=== PATIENT | female | born 2000 | race Caucasian/White ===

== ENCOUNTER 2023-05-18 17:59 | Outpatient (REF) | payer MEDICAID, SELFPAY ==
[2023-05-18 18:42] LABS: SARS-CoV-2 Ag NEGATIVE (NEGATIVE)
[2023-05-20 16:19] LABS: SARS-CoV-2 NAA NOT DETECTED (NOT DETECTE)
== END 2023-05-18 18:00 | disposition home or self-care (01) ==
LOC: LAB 17:59
PROVIDERS: Family Provider Obstetrics & Gynecology; PCP Family Medicine; Visit Provider Family Medicine
DX: R05.1 Acute cough (principal)
CPT/HCPCS: 87635; 87811

== ENCOUNTER 2023-07-09 15:06 | Outpatient (OUT) | payer MEDICAID, SELFPAY ==
--- OUTSIDE RECORDS SUMMARY | 2023-07-09 15:13 | XMS_ITS | CCD ---
Author Name Unknown Address [address] [place] [address] Organization [facility] Care Team Providers Care Welding Teacher Name Role Phone DALTON ., DR CONNELL Primary Care Unavailable HAY ., DR PINO Admitting Unavailable HAY ., DR PINO Attending Unavailable HAY ., DR PINO Consulting Unavailable NÉSTOR JOHNSTON Consulting Unavailable HOY ., DR CONNELL Admitting Unavailable HOY ., DR CONNELL Attending Unavailable HOY ., DR CONNELL Primary Care Unavailable DALTON ., DR CONNELL Consulting Unavailable LUIS, DR GAY Consulting Unavailable NGOC GODFREY Admitting Unavailable NGOC GODFREY Attending Unavailable DALTON ., DR CONNELL Primary Care Unavailable NGOC GODFREY Consulting Unavailable HOY ., DR CONNELL Admitting Unavailable HOY ., DR CONNELL Attending Unavailable ABDIRASHIDY ., DR CONNELL Primary Care Unavailable MD Ko Freeman Primary Care Provider [phone] MD Deidra Rees Attending Provider Deidra Rees Admitting Unavailable Deidra Rees Attending Unavailable Ko Freeman Primary Care Unavailable Allergies Allergy Classification Reported Allergen(s) Allergy Type Date of Onset Reaction(s) Facility (1 source) Amoxicillin Drug Allergy 0 [facility] (1 source) Clarithromycin Drug Allergy 4 [facility] (1 source) Phentolamine Drug Allergy 4 [facility] (1 source) Sulfamethoxazole / Trimethoprim Drug Allergy 7 [facility] (2 sources) Clarithromycin; Translations: [clarithromycin] Drug Allergy 8 [facility] (2 sources) Sulfamethoxazole; Translations: [sulfamethoxazole] Drug Allergy 8 [facility] (2 sources) Tobramycin; Translations: [tobramycin] Drug Allergy 8 [facility] (2 sources) Trimethoprim; Translations: [trimethoprim] Drug Allergy 8 [facility] Medications Current Medications Medication Drug Class(es) Dates Sig (Normalized) Sig (Original) albuterol 0.83 mg/ml inhalation solution (1 source) beta2-Adrenergic Agonist Start: 10-08-2017 Albuterol Sulfate Active October 08, 2017 12:00am budesonide 0.5 mg/ml inhalation suspension (1 source) Corticosteroid Start: 10-08-2017 Budesonide Active October 08, 2017 12:00am cetirizine hydrochloride 10 mg oral tablet (1 source) Histamine-1 Receptor Antagonist Start: 10-08-2017 Cetirizine Active TABLET October 08, 2017 12:00am diphenhydrAMINE hydrochloride 25 mg oral capsule (1 source) Histamine-1 Receptor Antagonist Start: 10-08-2017 Diphenhydramine Hcl (Benadryl) 25 mg Capsule Active October 08, 2017 12:00am ibuprofen 600 mg oral tablet (1 source) Nonsteroidal Anti-inflammatory Drug Start: 10-08-2017 take 600 mg by mouth every six hours Ibuprofen Active 600 MG PO Q6H October 08, 2017 12:00am Completed/Discontinued Medications Medication Drug Class(es) Dates Sig (Normalized) Sig (Original) acetaminophen 325 mg / HYDROcodone bitartrate 5 mg oral tablet (1 source) Opioid Agonist Start: 10-08-2017 End: 10-15-2017 take 1 tablet by mouth every four to six hours Hydrocodone-Acetami nophen ([place]) 5-325 mg tablet Discontinued 1 TAB PO EVERY 4-6 HOURS 10 01October 08, 2017 October 15, 2017 12:01am Problems Active Problems Problem Classification Problem Date Documented Date Episodic/Chronic Abdominal pain (1 source) Pelvic and perineal pain; Translations: [Pelvic and perineal pain] Onset: 09-07-2022 Episodic Attention-deficit, conduct, and disruptive behavior disorders (1 source) Attention-deficit hyperactivity disorder, unspecified type; Translations: [ADHD UNSPECIFIED TYPE] Onset: 02-27-2022 Chronic Substance-related disorders (1 source) Nicotine dependence, cigarettes, uncomplicated; Translations: [NICOTINE DEPEND CIGARETTES UNCOMP] Onset: 02-27-2022 Chronic Unclassified (4 sources) CONTACT W/AND (SUSP) EXPOS COVID-19; Translations: [CONTACT W/AND (SUSP) EXPOS COVID-19] Onset: 06-12-2022 Unclassified (3 sources) COUGH, UNSPECIFIED; Translations: [COUGH, UNSPECIFIED] Onset: 06-12-2022 Past or Other Problems Problem Classification Problem Date Documented Da te Episodic/Chronic Nonspecific chest pain (3 sources) Chest pain, unspecified; Translations: [CHEST PAIN UNSPECIFIED] Onset: 02-25-2022 Episodic Other aftercare (1 source) 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; Translations: [OTH NEWSPAPER PHOTOJOURNALIST CURRENT DRUG THERAPY] Onset: 02-27-2022 Episodic Pleurisy; pneumothorax; pulmonary collapse (1 source) Pleurisy; Translations: [PLEURISY] Onset: 02-27-2022 Episodic Unclassified (1 source) CONTACT W/AND (SUSP) EXPOS COVID-19; Translations: [CONTACT W/AND (SUSP) EXPOS COVID-19] Onset: 09-03-2022 Unclassified (1 source) COUGH, UNSPECIFIED; Translations: [COUGH, UNSPECIFIED] Onset: 06-10-2022 Results Test Name Value Interpretation Reference Range [place]il [place] Devine 09-07-2022 L - -------- Specimen: [id number] Received: 09/07/22 Status: SANJUANITA Martinez Num: [id number] Spec Type: Surgical Subm Dr: DEIDRA REES MD Tissues: A Uterus w/ or w/o tubes ovaries except neoplastic or prolap (CERVIX, MARÍA FT Procedures: HE/8, Gross/Micro L5 -------- Age/ Patient Sex Location Account Attending Physician -------- Keli Estrada 22 [place] [id number] DEIDRA REES MD -------- SPEC NUM: [id number] RECD: 09/07/22 STATUS: SANJUANITA HENRIQUEZ NUM: [id number] NESS: 09/07/22- [facility] DR: DEIDRA REES MD ENTERED: 09/07/22-[address] [facility] [address]: [facility] SPEC TYPE: Surgical DEPT: S ORDERED: HE/8, Gross/Micro L5 ORDERED: HE, Gross/Micro L5 Pathological Diagnosis Uterus, cervix, bilateral fallopian tubes, hysterectomy with bilateral salpingectomy: - Benign endometrium with proliferative pattern. - Chronic cervicitis. 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 - Serous cystadenofibroma, right fallopian tube fat pad nodule. 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 No ovaries are identified. The uterine serosa is purple pink. The exocervix is pedro-pink with a central 0.8 cm patent os. The endocervix is perdo red, glistening. The pedro- red endometrium averages 0.2 cm in thickness. The myometrium is pedro pink with a cystic appearance measuring up to 1.8 cm in thickness. The right fimbriated fallopian tube measures 6.0 x 0.6 x 0.5 cm and has attached paratubal cysts measuring up to 0.5 cm and an attached fat pad measuring up to 2.5 cm containing a 2.0 x 1.4 x 0.8 cm pedro-drake, rubbery nodule containing mucoid, yellow material on cut section. The fallopian tube is a pinpoint lumen on cut section . The left fimbriated fallopian tube measures 5.5 x 0.8 x 0.8 cm and has attached paratubal cysts measuring up to 0.7 cm. Additionally there is an attached fat pad measuring 2.2 x 1.6 x 0.9 cm. A 0.4 cm smooth-walled, clear fluid-filled cyst is -------- Specimen: [id number] Received: 09/07/22 Status: SANJUANITA Henriquez Num: [id number] Spec Type: Surgical Subm Dr: DEIDRA REES MD Tissues: A Uterus w/ or w/o tubes ovaries except neoplastic or prolap (CERVIX, MARÍA FT Procedures: HE/8, Gross/Micro L5 -------- Patient: Keli Estrada Mercedez [id number] (Continued) -------- Specimen: [id number] Received: 09/07/22 (Continued) Gross Description (Continued) Signed (signature on file) Julia Ballesteros MD 09/08/22 1316 -------- Specimen: Received: 09/07/22 Status: SANJUANITA Henriquez Num: [id number] Spec Type: Surgical Subm Dr: DEIDRA REES MD Tissues: A Uterus w/ or w/o tubes ovaries except neoplastic or prolap (CERVIX, MARÍA FT Procedures: NARESH/Manjit Washington/Micro L5 -------- Patient: NatalieKeli [id number] (Continued) -------- Specimen: [id number] Received: 09/07/22-1240 (Continued) Gross Description (Continued) identified in the attached fat pad. The fallopian tube has a pinpoint lumen on cut section. Fraternity Adviser sections are submitted in 8 cassettes as follows: A1 - Anterior cervix A2 - Posterior cervix A3 - Anterior endomyometrium A4 - Posterior endomyometrium A5 - Right fallopian tube A6 - Nodule from fat pad attached to right fallopian tube in its entirety A7 - Left fallopian tube A8 - Cyst from fat pad attached left fallopian tube in its entirety Microscopic Description Eight glass slides with H E stained material have been examined. The microscopic findings support the above pathologic diagnosis. CPT Codes 77522 -------- (more content not included)... Normal [facility] Covid-19 PCR ([facility])on 08-13 SARS-CoV-2 (COVID-19) RNA KEKE+probe Ql (Unsp spec) Not detected Normal NOT DETECTED [facility] Comment on above: Result Comment: This test is not yet approved or cleared by the [place] FDA. When there are no FDA-approved or cleared tests available, and other criteria are met, FDA can make tests available under an emergency access mechanism called an Emergency Use Authorization (EUA). The EUA for this test is supported by the [place] of Health and Human Service's (HHS's) declaration that circumstances exist to justify the emergency use of in vitro diagnostics for the detection and/or diagnosis of the virus that causes COVID-19. This EUA will remain in effect (meaning this test can be used) for the duration of the COVID-19 declaration justifying emergency of IVDs, unless it is terminated or revoked by FDA (after which the test may no longer be used). When diagnostic testing is negative, the possibility of a false negative should be considered in the context of a patient's recent exposures and the presence of clinical signs and symptoms consistent with SARS-CoV-2. Performed By: #### C VDTB #### [facility] [address] [place] [address] Dr. Ning Leonardo Covid-19 PCR ([facility])on 05-15 SARS-CoV-2 (COVID-19) RNA KEKE+probe Ql (Unsp spec) Not detected Normal NOT DETECTED [facility] Comment on above: Result Comment: When diagnostic testing is negative, the possibility of a false negative should be considered in the context of a patient's recent exposures and the presence of clinical signs and symptoms consistent with SARS-CoV-2. This test is not yet approved or cleared by the [place] FDA. When there are no FDA-approved or cleared tests available, and other criteria are met, FDA can make tests available under an emergency access mechanism called an Emergency Use Authorization (EUA). The EUA for this test is supported by the [place] of Health and Human Service's declaration that circumstances exist to justify the emergency use of in vitro diagnostics for the detection and/or diagnosis of the virus that causes COVID-19. This EUA will remain in effect for the duration of the COVID-19 declaration justifying emergency of IVDs, unless it is terminated or revoked by the FDA (after which the test may no longer be used). Performed By: #### C VDTB #### [facility] [address] [place] [address] Dr. Ning Leonardo INFLUENZA A AND B AGon 06-10 INFLUANEGH SEE BELOW Normal [facility] Comment on above: Result Comment: Nega tive for Flu A protein angiten. Infection due to Flu A cannot be ruled out. Flu A angiten in the sample may be below the detection limit of the test. Performed By: #### I NFLUAB #### [facility] [address] [place] [address] Dr. Ning [facility] BELOW Normal [facility] Comment on above: Result Comment: Nega tive for Flu B protein antigen. Infection due to Flu B cannot be ruled out. Flu B antigen in the sample may be below the detection limit of the test. Performed By: #### I NFLUAB #### [facility] [address] [place] [address] Dr. Ning Leonardo INFLUENZA A AG Negative Normal NEGATIVE SEE COMMENT [facility] Comment on above: Performed By: #### I NFLUAB #### [facility] [address] [place] [address] Dr. Ning Leonardo INFLUENZA B AG Negative Normal NEGATIVE SEE COMMENT [facility] Comment on above: Performed By: #### I NFLUAB #### [facility] [address] [place] [address] Dr. Ning Leonardo CBC AUTO DIFFon 02-25-2022 BASO # 0.0 103/ul Normal 0.0-0.1 [facility] Comment on above: Performed By: #### C BC #### [facility] [address] [place] [address] Dr. Ning Leonardo Basophils/100 WBC (Bld) 0.8 % Normal 0.2-2.0 [facility] Comment on above: Performed By: #### C BC #### [facility] [address] [place] [address] Dr. Ning Leonardo EO # 0.3 103/ul Normal 0.0-0.7 [facility] Comment on above: Performed By: #### C BC #### [facility] [address] [place] [address] Dr. Ning Leonardo Eosinophils/100 WBC (Bld) 6.2 % Normal 0.9-7.0 [facility] Comment on above: Performed By: #### C BC #### [facility] [address] [place] [address] Dr. Ning Leonardo Erythrocyte distribution width (RBC) [Ratio] 13.1 % Normal 11.0-15.0 [facility] Comment on above: Performed By: #### C BC #### [facility] [address] [place] [address] Dr. Ning Leonardo Hematocrit (Bld) [Volume fraction] 39.7 % Normal 36.0-48.0 [facility] Comment on above: Performed By: #### C BC #### [facility] [address] [place] [address] Dr. Ning Leonardo Hemoglobin (Bld) [Mass/Vol] 13.3 g/dL Normal 12.0-16.0 [facility] Comment on above: Performed By: #### C BC #### [facility] [address] [place] [address] Dr. Ning Leonardo IG # 0.03 10e3/ul Normal 0.00-0.03 [facility] Comment on above: Performed By: #### C BC #### [facility] [address] [place] [address] Dr. Ning Leonardo IG % 0.6 % Critically high 0.0-0.5 [facility] Comment on above: Performed By: #### C BC #### [facility] [address] [place] [address] Dr. Ning Leonardo LYMPH # 1.0 103/ul Critically low 1.2-3.8 [facility] Comment on above: Performed By: #### C BC #### [facility] [address] [place] [address] Dr. Ning Leonardo Lymphocytes/100 WBC (Bld) 18.8 % Critically low 20.5-60.0 [facility] Comment on above: Performed By: #### C BC #### [facility] [address] [place] [address] Dr. Ning Leonardo MANUAL DIFF REQ NO Normal [facility] Comment on above: Performed By: #### C BC #### [facility] [address] [place] [address] Dr. Ning Leonardo MCH (RBC) [Entitic mass] 32.5 pg Normal 26.7-34.0 [facility] Comment on above: Performed By: #### C BC #### [facility] [address] [place] [address] Dr. Ning eLonardo MCHC (RBC) [Mass/Vol] 33.5 g/dL Normal 29.9-35.2 [facility] Comment on above: Performed By: #### C BC #### [facility] [address] [place] [address] Dr. Ning Leonardo MCV (RBC) [Entitic vol] 97.1 fL Normal 81.0-99.0 [facility] Comment on above: Performed By: #### C BC #### [facility] [address] [place] [address] Dr. Ning Leonardo MONO # 0.6 103/ul Normal 0.3-0.8 [facility] Comment on above: Performed By: #### C BC #### [facility] [address] [place] [address] Dr. Ning Leonardo Monocytes/100 WBC (Bld) 11.6 % Normal 1.7-12.0 [facility] Comment on above: Performed By: #### C BC #### [facility] [address] [place] [address] Dr. Ning Leonardo NEUT # 3.2 103/ul Normal 1.4-6.5 [facility] Comment on above: Performed By: #### C BC #### [facility] [address] [place] [address] Dr. Ning Leonardo Neutrophils/100 WBC (Bld) 62.0 % Normal 43.0-75.0 [facility] Comment on above: Performed By: #### C BC #### [facility] [address] [place] [address] Dr. Ning Leonardo Platelet mean volume (Bld) [Entitic vol] 11.1 fL Normal 9.5-13.5 [facility] Comment on above: Performed By: #### C BC #### [facility] [address] [address] [address] Ning Leonardo PLT 143 103/ul Critically low 150-450 [facility] Comment on above: Performed By: #### C BC #### [facility] [address] [address] [address] Ning Leonardo RBC 4.09 106/ul Critically low 4.20-5.40 [facility] Comment on above: Performed By: #### C BC #### [facility] [address] [address] [address] Ning Leonardo WBC 5.2 103/ul Normal 4.0-11.0 [facility] Comment on above: Performed By: #### C BC #### [facility] [address] [place] [address] Dr. Ning Leonardo CTA CHEST WO W CONon 022 CTA CHEST WO W CON EXAMINATION: CTA CHEST WO W CON HISTORY: Pleuritic pain COMPARISON: None. TECHNIQUE: CT angiography of the pulmonary arteries following the administration of intravenous contrast. Coronal and sagittal MIP (maximum intensity projection) images were performed. Dose reduction techniques were achieved by using automated exposure control and/or adjustment of mA and/or kV according to patient size and/or use of iterative reconstruction technique. FINDINGS: Relative suboptimal enhancement of the pulmonary arteries to bolus timing. No central pulmonary arterial emboli. Suboptimal assessment of the segmental and subsegmental branches bilaterally. Pulmonary granulomatous calcifications. The pleural spaces are clear. No enlarged lymph nodes within the chest. IMPRESSION: 1. Suboptimal enhancement of the pulmonary arteries. No central pulmonary arterial emboli. Suboptimal assessment of the segmental and subsegmental branches bilaterally. 2. No acute cardiopulmonary disease. Electronically authenticated by: NÉSTOR JOHNSTON Date: 2022-02-25 17:09 Normal [facility] PROF CHEM 8 (BAS METB)on Anion gap [Moles/Vol] 5.6 mmol/L Normal [facility] Comment on above: Performed By: #### B MP, HSTROPN #### [facility] [address] [place] [address] Dr. Ning Leonardo Calcium [Mass/Vol] 8.6 mg/dL Normal 8.5-10.1 [facility] Comment on above: Performed By: #### B MP, HSTROPN #### [facility] [address] [address] [address] Ning Leonardo Chloride [Moles/Vol] 106 mmol/L Normal 98-107 [facility] Comment on above: Performed By: #### B MP, HSTROPN #### [facility] [address] [address] [address] Ning Leonardo CO2 [Moles/Vol] 28.9 mmol/L Normal 21.0-32.0 [facility] Comment on above: Performed By: #### B MP, HSTROPN #### [facility] [address] [address] [address] Ning Leonardo Creatinine [Mass/Vol] 0.60 mg/dL Normal 0.55-1.02 [facility] Comment on above: Performed By: #### B MP, HSTROPN #### [facility] [address] [address] [address] Ning Leonardo EGFR-AF RUSSIAN >60 Normal >=60 [facility] Comment on above: Performed By: #### B MP, HSTROPN #### [facility] [address] [place] [address] Dr. Ning Leonardo EGFR-NON AF RUSSIAN >60 Normal >=60 [facility] Comment on above: Performed By: #### B MP, HSTROPN #### [facility] [address] [address] [address] Ning Leonardo Glucose [Mass/Vol] 79 mg/dL Normal 74-106 [facility] Comment on above: Performed By: #### B MP, HSTROPN #### [facility] [address] [address] [address] Ning Leonardo Potassium [Moles/Vol] 4.5 mmol/L Normal 3.5-5.1 [facility] Comment on above: Result Comment: spec imen slightly hemolyzed Performed By: #### B MP, HSTROPN #### [facility] [address] [place] [address] Dr. Nnig Leonardo Sodium [Moles/Vol] 136 mmol/L Normal 136-145 [facility] Comment on above: Performed By: #### B MP, HSTROPN #### [facility] [address] [address] [address] Ning Leonardo Urea nitrogen [Mass/Vol] 12.0 mg/dL Normal 7.0-18.0 [facility] Comment on above: Performed By: #### B MP, HSTROPN #### [facility] [address] [address] [address] Ning Leonardo Urea nitrogen/Creatinine [Mass ratio] 20.0 mg/mg Normal [facility] Comment on above: Performed By: #### B ELIS, HSTROPN #### [facility] [address] [place] [address] Dr. Ning Leonardo TROPONIN, HIGH SENSITIVITYon 02-25-2022 HSTROP 4.8 pg/mL Normal 4.0-51.3 [facility] Comment on above: Result Comment: CUT- OFF POINTS HAVE BEEN ESTABLISHED BASED ON THE FOURTH UNIVERSAL DEFINITIONS OF MYOCARDIAL INFARCTION. THE UPPER REFERENCE LIMIT (URL) OF TROPONIN, DEFINED THE 99TH PERCENTILE OF cTnI DISTRIBUTION IN A REFERENCE POPULATION, HAS BEEN CONFIRMED THE DECISION THRESHOLD FOR MS DIAGNOSIS. Performed By: #### B ELIS, HSTROPN #### [facility] [address] [place] [address] Dr. Ning Palmer 02-18-2021 CNPN Telephone ([facility]) KELI ESTRADA ([id number]) 2000 F Date Time Provider Department 02/18/21 JACOBY REYES [facility] During your visit today, we recorded the following information about you: Lavern Rob Ma 02/18/2021 9:02 AM Signed Called patient and left a voice message to call the office back at [phone] option 3. Dear Keli This is a follow up phone call regarding your appointment with Dr. Reyes [facility] [place] [facility]. Your appointment time is 2arrive at 1:40. Please bring any outside records, lab work and a cd with copies of your imaging studies to your appointment. Please be advised that your first appointment with Dr. Reyes is always a diagnostic evaluation. He will review your medical history, old records and imaging reports and discuss with you his plan of care. This care plan will be communicated to your referring physician. Dr. Reyes is an interventional size painter, which means that he treats chronic pain with multi-modal approaches such as injections, physical therapy, non-narcotic medications. He will not take over an pain medications or narcotic that you are currently taking from another physician. Please make sure you have enough of your pain medication to last until you are able to follow up with that prescribing physician. Allergies As of Date: 02/18/2021 Noted Allergy Reaction BACTRIM (SULFAMETHOXAZOLE-TRI METH*02/23/2018 4 - Hives 7 - Swelling BIOXIN (CLARITHROMYCIN) 02/14/2016 2 - Rash 7 - Swelling 12 - Shortness of Breath SEASONAL ALLERGIES 02/14/2016 9 - Itching TOBRAMYCIN 10/12/2016 14 - Other: See Comments 7 - Swelling Date Reviewed: 02/04/2021 Reviewed by: Yesi Tay Ma - Fully Assessed Reason for Visit: Appointment [186] Prescriptions as of 05/13/2021 - cyclobenzaprine (FLEXERIL) 5 mg tablet Take 1-2 tablets by mouth at bedtime as needed. - baclofen vaginal suppository 10 mg (CPD) Unwrap and insert one suppository once daily at bedtime as directed. - albuterol HFA (PROVENTIL HFA, VENTOLIN HFA) 90 mcg/actuation inhaler INHALE 2 PUFFS QID PRN. START WITH 2 PUFFS 30 MINUTES BEFORE PRACTICE - ondansetron orally disintegrating (ZOFRAN ODT) 4 mg disintegrating tablet DISSOLVE 1 T ON THE TONGUE QID PRN - DULERA 100-5 mcg/actuation inhaler INHALE 2 PUFFS PO INTO THE LUNGS BID - Cetirizine 10 mg cap Take 1 Tablespoonful by mouth. 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 She has not been seen since 05/2019 with Gi George and 04/[address] Reyes. Myrtle Child 02/12/2021 4:23 PM Signed Spoke to patient and r/s her appt to see Dr. Reyes for her Pelvic Pain. Allergies As of Date: 02/12/2021 Noted Allergy Reaction BACTRIM (SULFAMETHOXAZOLE-TRI METH*02/23/2018 4 - Hives 7 - Swelling BIOXIN (CLARITHROMYCIN) 02/14/2016 2 - Rash 7 - Swelling 12 - Shortness of Breath SEASONAL ALLERGIES 02/14/2016 9 - Itching TOBRAMYCIN 10/12/2016 14 - Other: See Comments 7 - Swelling Date Reviewed: 02/04/2021 Reviewed by: Yesi Tay Ma - Fully Assessed Reason for Visit: Appointment [186] Prescriptions as of 02/12/2021 - cyclobenzaprine (FLEXERIL) 5 mg tablet Take 1-2 tablets by mouth at bedtime as needed. - baclofen vaginal suppository 10 mg (CPD) Unwrap and insert one suppository once daily at bedtime as directed. - albuterol HFA (PROVENTIL HFA, VENTOLIN HFA) 90 mcg/actuation inhaler INHALE 2 PUFFS QID PRN. START WITH 2 PUFFS 30 MINUTES BEFORE PRACTICE - ondansetron orally disintegrating (ZOFRAN ODT) 4 mg disintegrating tablet DISSOLVE 1 T ON THE TONGUE QID PRN - DULERA 100-5 mcg/actuation inhaler INHALE 2 PUFFS PO INTO THE LUNGS BID - Cetirizine 10 mg cap Take 1 Tablespoonful by mouth. 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 HISTORY SINCE LAST VISIT: pt states most of her pain is LLQ pain also has salpingitis isthmica nodosa Intensity of pain: mild and gets severe at times Average Pain level: 5 on a scale of 0-10 Emergency room visits for pain since last visit: yes many times Level of physical activity and mobility: same, some days cannot function Quality of sleep: at times it wakes her up Mood: ok Side effects of medications for pain: none LLQ feels like it's over left ovary then turns into pressure and burning. Then radiates down right side and down legs. When severe and intense has to go to ED. Lupron improved pain enough that had good quality of life. On for 6 months 08/03 till mid 2019. OCP no improvement. Kyleena for a year now - still bleeding and spotting. Gets period less frequently or just gets no period at all. Nothing for abnormal hair growth. 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 Not on it now. 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 Never seen endocrinology Pudendal injection helped with tailbone pain. Has not been back to see Dr Reyes. Had a lot of relief for quite some time. Pelvic floor physical therapy for 1-2 months. No relief. Made it worse. Made better with Ibuprofen. Ingenio - sometimes pain afterwards. Makes it feel like she's on fire. Urinary - no symptoms Pain Scales Not completed Notes from last visit 02/22/18 Dr Edi MD: PLAN PFPT ortho referral Consider TPI Recommend menstrual suppression, discussed mirena or kyleena with cytotec ? Heal Pelvic Pain By Isabel Wade ? Follow up in 4-6 weeks (consider virtual visits) ? ? MDM- Suspect that PFTM developed after full leg cast for months due to injury falling off a tractor ? Faisal Daley MD SUBJECTIVE ROS - See HPI OBJECTIVE BP 121/69 Ht 5' 4 (1.63m) Wt 198 lb (89.8kg) LMP 10/13/2015 BMI 33.97 kg/(m2). PHYSICAL EXAMINATION: Physical Exam - deferred ASSESSMENT Encounter Diagnosis ICD-10-CM 1. 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 High-tone pelvic floor dysfunction N94.89 cyclobenzaprine (FLEXERIL) 5 mg tablet baclofen vaginal suppository 10 mg (CPD) 3. Myofascial muscle pain M79.18 cyclobenzaprine (FLEXERIL) 5 mg tablet baclofen vaginal suppository 10 mg (CPD) 4. Abnormal facial hair L67.8 CONSULT TO INFERTILITY CLINIC 5. 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 CONSULT TO PAIN MGT cyclobenzaprine (FLEXERIL) 5 mg tablet baclofen vaginal suppository 10 mg (CPD) PLAN Consult to infertility Consult to pain management to see Dr Jason Chowdhury at bedtime Baclofen suppository Follow up as needed Alfie Card APRN.CNP Medical Decision Making: Problems: Low: Stable chronic illness Data: Unique source(s) for external note(s) reviewed: 1 Risk: Low: Low risk from testing/treatment Moderate: Drug management Medical Decision Making Level: 3 - Low Alfie Card APRN.CNP 02/04/2021 2:35 PM Signed PLAN Consult to infertility Consult to pain management to see Dr Jason Chowdhury at bedtime Baclofen suppository Referring Provider: DEIDRA REES [[id number]] Allergies As of Date: 02/04/2021 Noted Allergy Reaction BACTRIM (SULFAMETHOXAZOLE-TRI METH*02/23/2018 4 - Hives 7 - Swelling BIOXIN (CLARITHROMYCIN) 02/14/2016 2 - Rash 7 - Swelling 12 - Shortness of Breath SEASONAL ALLERGIES 02/14/2016 9 - Itching TOBRAMYCIN 10/12/2016 14 - Other: See Comments 7 - Swelling Date Reviewed: 02/04/2021 Reviewed by: Yesi Tay Ma - Fully Assessed Reason for Visit: Established Patient [175] Primary Visit Diagnosis:Salpingitis isthmica nodosa [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.11] Other Visit Diagnoses:High-tone pelvic floor dysfunction [N94.89] Myofascial muscle pain [M79.18] Abnormal facial hair [L67.8] 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 - baclofen vaginal sup (more content not included)... Normal [facility] Coding Summaryon 12-29-2019 Coding Summary CODING DATE: 12/29/2019 [facility] STATUS: Home PAYOR: Medicaid HMO ADMIT DX: REASON FOR VISIT DX: R51 Headache R11.0 Nausea R19.7 Diarrhea, unspecified FINAL DX: PRINCIPAL: K52.9 Noninfective gastroenteritis and colitis, unspecified SECONDARY: R51 Headache F17.210 Nicotine dependence, cigarettes, uncomplicated PYMT PROC APC STAT DESCRIPTION DOCTOR NAME DATE NOTE: The code number assigned matches the documented diagnosis and / or procedure in the patient's chart. However, the narrative phrase printed from the coding software may appear abbreviated, or result in slightly different terminology. Coded By: Queta Gonzalez Date Saved: 12/29/2019 05:00 pm [facility] Coding Summary CODING DATE: 12/29/2019 [facility] STATUS: Home PAYOR: Medicaid HMO ADMIT DX: REASON FOR VISIT DX: R51 Headache R11.0 Nausea R19.7 Diarrhea, unspecified FINAL DX: PRINCIPAL: K52.9 Noninfective gastroenteritis and colitis, unspecified SECONDARY: R51 Headache F17.210 Nicotine dependence, cigarettes, uncomplicated PYMT PROC APC STAT DESCRIPTION DOCTOR NAME DATE NOTE: The code number assigned matches the documented diagnosis and / or procedure in the patient's chart. However, the narrative phrase printed from the coding software may appear abbreviated, or result in slightly different terminology. Coded By: Queta Gonzalez Date Saved: 12/29/2019 04:59 pm [facility] .Auto Diff 1on 12-21-2019 Auto Meigs % 6 % Normal 1-12 [facility] Comment on above: Performed By: #### 1 [id number], [id number], 4648224, 94038490, [id number] ####[facility] (DEFAULT)[address] [place] [address] 82511 Baso Abs# 0.0 x10 Normal 0.0-0.2 [facility] Comment on above: Performed By: #### 1 [id number], [id number], 0843742, 45267042, [id number] ####[facility] (DEFAULT)[address] [place] [address] 62184 Basophils/100 WBC (Bld) 0.3 % Normal 0.2-2.0 [facility] Comment on above: Performed By: #### 1 [id number], [id number], 3262302, 05220735, [id number] ####[facility] (DEFAULT)[address] [place] [address] 45591 Eos Abs# 0.4 x10 Normal 0.0-0.4 [facility] Comment on above: Performed By: #### 1 [id number], [id number], 6784212, 14167478, 2725150977 ####[facility] (DEFAULT)[address] [place] [address] 24157 Eosinophils/100 WBC (Bld) 3.3 % Normal 0.9-4.0 [facility] Comment on above: Performed By: #### 1 [id number], 4800469149, 9927478, 08328293, 3596450810 ####[facility] (DEFAULT)[address] [place] [address] Lymphocytes (Bld) [#/Vol] 1.2 x10 Low 1.3-2.9 [facility] Comment on above: Performed By: #### 1 [id number], 7271924614, 8129278, 03629945, [id number] ####[facility] (DEFAULT)[address] [place] [address] Lymphocytes/100 WBC (Bld) 9 % Low 14-48 [facility] Comment on above: Performed By: #### 1 [id number], 3322613840, 3320469, 55845503, 9137786940 ####[facility] (DEFAULT)[address] [place] [address] Meigs Abs# 0.8 x10 Normal 0.0-0.8 [facility] Comment on above: Performed By: #### 1 [id number], 6851722796, 7959889, 16908050, 0133493311 ####[facility] (DEFAULT)[address] [place] [address] Neut Abs# 10.5 x10 High 1.5-9.2 [facility] Comment on above: Performed By: #### 1 [id number], 6009178602, 6700354, 22336426, 4154909417 ####[facility] (DEFAULT)[address] [place] [address] Neutrophils/100 WBC (Bld) 81 % Normal 44-88 [facility] Comment on above: Performed By: #### 1 [id number], 1432233074, 4428621, 35002228, 2035874916 ####[facility] (DEFAULT)[address] [place] [address] CBC w/ Auto Diffon 0 Erythrocyte distribution width (RBC) [Ratio] 12.6 % Normal 11.5-15.0 [facility] Comment on above: Performed By: #### 1 [id number], 5220242456, 8875674, 71633678, 2281923480 ####[facility] (DEFAULT)[address] [place] [address] Hematocrit (Bld) [Volume fraction] 43.2 % High 33.7-40.4 [facility] Comment on above: Performed By: #### 1 [id number], 7858472103, 1572016, 11098671, 0482852562 ####[facility] (DEFAULT)[address] [place] [address] Hemoglobin (Bld) [Mass/Vol] 14.7 g/dL Normal 11.3-15.9 [facility] Comment on above: Performed By: #### 1 [id number], 4009849474, 9247306, 95369602, 9652034300 ####[facility] (DEFAULT)[address] [place] [address] Man Diff? Auto Normal [facility] Comment on above: Performed By: #### 1 [id number], 6149850526, 7849537, 13986008, 1806952881 ####[facility] (DEFAULT)[address] [place] [address] 17418 MCH (RBC) [Entitic mass] 32 pg Normal 24-34 [facility] Comment on above: Performed By: #### 1 [id number], 1865142873, 3275888, 96723154, 4752498706 ####[facility] (DEFAULT)[address] [place] [address] 00788 MCHC (RBC) [Mass/Vol] 34 g/dL Normal 26-37 [facility] Comment on above: Performed By: #### 1 [id number], 0509043337, 7365901, 76953353, 8215309515 ####[facility] (DEFAULT)[address] [place] [address] 59131 MCV (RBC) [Entitic vol] 92 fL Normal 81-100 [facility] Comment on above: Performed By: #### 1 [id number], 7889659988, 6502811, 31464968, 4111351455 ####[facility] (DEFAULT)[address] [place] [address] Platelet mean volume (Bld) [Entitic vol] 10.2 fL Normal 6.3-10.2 [facility] Comment on above: Performed By: #### 1 [id number], 2407085019, 3872566, 29046877, 6460564965 ####[facility] (DEFAULT)[address] [place] [address] 68040 Platelets (Bld) [#/Vol] 208 x10 Normal 138-427 [facility] Comment on above: Performed By: #### 1 [id number], 6471711207, 7749616, 45506504, 0858533929 ####[facility] (DEFAULT)[address] [place] [address] RBC (Bld) [#/Vol] 4.67 x10 Normal 3.70-5.30 [facility] Comment on above: Performed By: #### 1 [id number], 1218173715, 7538116, 35513801, 8429842848 ####[facility] (DEFAULT)[address] [place] [address] 22886 WBC (Bld) [#/Vol] 12.9 x10 [facility] Comment on above: Performed By: #### 1 059093431, 1131264335, 0259257, 20841882, 6306319215 ####[facility] (DEFAULT)[address] [place] [address] 68014 CMP Standardon 12-21-2019 eGFR Non AA >60 [facility] Comment on above: Performed By: #### 1 [id number], 8921386, 76952454, 5877361, 8305704279, 8036182935 #### [facility] (DEFAULT) [address] [place] [address] eGFR AA >60 [facility] Comment on above: Result Comment: [facility]ilities Specialist angie Kidney disease could be indicated at eGFRs of less than 60 ml/min/1.73m2. Kidney Failure is indicated at less than 15 ml/min/1.73m2 Performed By: #### 1 [id number], 5482957, 51686757, 3602678, 3927751414, 5229133494 #### [facility] (DEFAULT) [address] [place] [address] 48879 Albumin [Mass/Vol] 3.9 g/dL Normal 3.5-5.0 [facility] Comment on above: Performed By: #### 1 700132344, 5878010, 54337875, 9414617, 6057930086, 9561421588 #### [facility] (DEFAULT) [address] [place] [address] 29850 Albumin/Globulin [Mass ratio] 1.3 {ratio} Low 1.4-2.6 [facility] Comment on above: Performed By: #### 1 [id number], 7752489, 79298975, 2607644, 9396256233, 2056267495 #### [facility] (DEFAULT) [address] [place] [address] 10416 Alk Phos 54 IU/L Normal 32-91 [facility] Comment on above: Performed By: #### 1 616488660, 2801064, 54576392, 2439146, 6065527706, 3810867104 #### [facility] (DEFAULT) [address] [place] [address] 44921 ALT/SGPT 23.0 IU/L Normal 14.0-54.0 [facility] Comment on above: Performed By: #### 1 010141404, 3998622, 11132067, 9071900, 1305646307, 9628897394 #### [facility] (DEFAULT) [address] [place] [address] 74788 Anion gap [Moles/Vol] 10.0 mmol/L Normal 5.0-19.0 [facility] Comment on above: Performed By: #### 1 [id number], 2783886, 60544316, 0674350, 9432706831, 0375435770 #### [facility] (DEFAULT) [address] [place] [address] 00895 AST/SGOT 17 IU/L Normal 15-41 [facility] Comment on above: Performed By: #### 1 [id number], 5666771, 38363845, 1126613, 8806027830, 7999195355 #### [facility] (DEFAULT) [address] [place] [address] 33735 Bili Total 0.5 mg/dL Normal 0.3-1.2 [facility] Comment on above: Performed By: #### 1 564195098, 7688716, 91970997, 2353576, 1953217393, 4897265568 #### [facility] (DEFAULT) [address] [place] [address] 95687 Calcium [Mass/Vol] 8.6 mg/dL Low 8.9-10.3 [facility] Comment on above: Performed By: #### 1 [id number], 8501479, 29654364, 2605336, 3456799377, 2483731068 #### [facility] (DEFAULT) [address] [place] [address] 93956 Chloride [Moles/Vol] 107 mmol/L Normal 101-111 [facility] Comment on above: Performed By: #### 1 [id number], 4034323, 67260153, 9837278, 9007753062, 9967091361 #### [facility] (DEFAULT) [address] [place] [address] 94239 CO2 [Moles/Vol] 23 mmol/L Normal 21-32 [facility] Comment on above: Performed By: #### 1 [id number], 8911905, 10608989, 5346653, 1775730005, 3995739595 #### [facility] (DEFAULT) [address] [place] [address] 81608 Creatinine [Mass/Vol] 0.85 mg/dL Normal 0.60-1.30 [facility] Comment on above: Performed By: #### 1 871957534, 9474379, 64929642, 3785248, 3704946404, 9617198597 #### [facility] (DEFAULT) [address] [place] [address] 26113 Globulin (S) [Mass/Vol] 2.9 g/dL Normal 1.5-4.3 [facility] Comment on above: Performed By: #### 1 675381264, 4667184, 98724348, 0413828, 3890828733, 5547382734 #### [facility] (DEFAULT) [address] [place] [address] 21969 Glucose [Mass/Vol] 94.0 mg/dL Normal 74.0-118.0 [facility] Comment on above: Performed By: #### 1 997661649, 2563058, 99058318, 8917795, 3428389812, 7883005874 #### [facility] (DEFAULT) [address] [place] [address] 69234 Osmolality [Osmolality] 274 mOsm/L [facility] Comment on above: Performed By: #### 1 [id number], 4118333, 83913217, 8706336, 9354805074, 1696592082 #### [facility] (DEFAULT) [address] [place] [address] 47407 Potassium [Moles/Vol] 3.4 mmol/L Low 3.6-5.1 [facility] Comment on above: Performed By: #### 1 [id number], 3921264, 34055103, 4300185, 2550835902, 4191081048 #### [facility] (DEFAULT) [address] [place] [address] 36431 Protein [Mass/Vol] 6.8 g/dL Normal 6.5-8.1 [facility] Comment on above: Performed By: #### 1 054694585, 2709296, 49928636, 3944301, 3520572030, 9174638767 #### [facility] (DEFAULT) [address] [place] [address] 87482 Sodium [Moles/Vol] 137.0 mmol/L Normal 136.0-144.0 [facility] Comment on above: Performed By: #### 1 [id number], 5029440, 69876209, 4581651, 3723302561, 9430190093 #### [facility] (DEFAULT) [address] [place] [address] 93367 Urea nitrogen [Mass/Vol] 14 mg/dL Normal 8-26 [facility] Comment on above: Performed By: #### 1 [id number], 5650902, 52545741, 6095080, 6494509318, 0119438887 #### [facility] (DEFAULT) [address] [place] [address] Urea nitrogen/Creatinine [Mass ratio] 16.0 mg/mg Normal 4.6-16.2 [facility] Comment on above: Performed By: #### 1 [id number], 4962891, 84253615, 8088011, 3792656107, 5071879675 #### [facility] (DEFAULT) [address] [place] [address] 42061 ED Clinical Summaryon 2019 ED Clinical Summary [facility] - Emergency Department [address] [place] [address] 15377 ED Clinical Summary PERSON INFORMATION Name: KELI ESTRADA Age: 19 Years Sex: FEMALE : 2000 MRN: Acct#: Visit Reason: Diarrhea; Headache; Diarrhea; Headache - Recurrent; HEADACHE, BODY ACHES Arrival: 12/21/2019 00:29:46 Discharge: 12/21/2019 02:29:00 LOS: 000 02:00 Check In: 12/21/2019 00:29:46 Checkout:12/21/2019 02:29:00 Address: [place] [address] PCP: KO FREEMAN PROVIDER INFORMATION Provider Role Assigned Unassigned Cyrus Resendez MD ED Provider 12/21/2019 00:30:56 Ayla Regalado STRING STUDIES DIRECTOR Nurse 12/21/2019 00:47:16 VITALS INFORMATION Vital Sign Triage Latest Temperature Tympanic Temperature Temporal Artery Pulse Rate 88 bpm 88 bpm O2 Sat 100 % 100 % Respiratory Rate 16 br/min 16 br/min Blood Pressure /78 mmHg /78 mmHg MEDICAL INFORMATION Medications Given: Medication Dose Route Sodium Chloride 0.9% intravenous solution 1000 mL Initial Volume 1000 mL/hr IV Right Antecubital Fossa ondansetron 4 mg IV Push pantoprazole 40 mg IV Push metoclopramide 10 mg IV Piggyback diphenhydrAMINE 50 mg IV Push ketorolac 30 mg IV Push Allergy Information: cefTRIAXone; Bactrim; tobramycin PHYSICIAN DOCUMENTATION DISCHARGE INFORMATION: Discharge Disposition: Home Discharge Location: Home PATIENT EDUCATION INFORMATION Instructions: Migraine Headache, Koan-kv-Jiyc; Viral Gastroenteritis, Adult, Wdnj-[id number] Follow-Up: With: Address: When: KO FREEMAN [address] [place] [address], [place] [address] Business (1) Within 3 to 5 days DIAGNOSIS: Gastroenteritis; Headache Patient Understands: Yes - Patient/family/caregi shanique verbalizes understanding of instructions given Comment: [facility] ED Note - Physicianon 2019 ED Note - Physician Patient: KELI ESTRADA Age: 19 years Sex: FEMALE : 2000 Associated Diagnoses: Gastroenteritis; Headache Author: Cyrus Resendez MD Basic Information Time seen: Date & time 12/21/2019 00:37:00. Frontal headache, nausea, diarrhea History of Present Illness 19-year-old white female presents the emergency room complaining of a frontal headache/migraine that began about 8 to 10 hours ago. Patient reports she took ibuprofen and Benadryl at home with minimal relief. Patient reports she also has had several episodes of diarrhea and nausea with one episode of emesis. She states she has muscle aches but denies any cough or cold symptoms. Patient denies any COVID exposure Review of Systems Constitutional symptoms: Chills, fatigue, No fever, Skin symptoms: No rash, Eye symptoms: Vision unchanged. Respiratory symptoms: No shortness of breath, no cough. Cardiovascular symptoms: No chest pain, Gastrointestinal symptoms: Nausea, vomiting, diarrhea, No abdominal pain, Musculoskeletal symptoms: Muscle pain. Neurologic symptoms: Headache, no altered level of consciousness, no numbness, no tingling, no weakness. Health Status Allergies: Allergic Reactions (Selected) Severity Not Documented Bactrim- No reactions were documented. CefTRIAXone- No reactions were documented. Tobramycin- No reactions were documented.. Medications: (Selected) Documented Medications Documented Lupron: 1 mg, SubQ, q24hr (int), 0 Refill(s) Mirena 52 mg intrauterine device: 52 mg = 1 EA, Intrauteral, Once, for 1 doses, 1 EA, 0 Refill(s) Protonix 40 mg oral delayed release tablet: 40 mg = 1 tab(s), PO, Daily, 0 Refill(s) Zofran 4 mg oral tablet: 4 mg = 1 tab(s), PO, q8hr (int), 0 Refill(s) ZyrTEC: Daily, 0 Refill(s) drospirenone-estradio l: PO, Daily, 0 Refill(s). Past Medical/ Family/ Social History Social history: Social & Psychosocial Habits Tobacco 08/16/2019 Smoking tobacco use: 10 or more cigarettes (1/ Electronic Cigarette/Vaping 08/16/2019 Electronic Cigarette Use: Never . Problem list: No qualifying data available . Physical Examination Vital Signs Vital Signs 12/21/2019 0:39 EDT Temperature Temporal 37.1 DegC Peripheral Pulse Rate 88 bpm Respiratory Rate 16 br/min Systolic Blood Pressure 125 mmHg Diastolic Blood Pressure 78 mmHg SpO2 100 % Oxygen Therapy Room air . Per nurse's notes. General: Alert, no acute distress. Skin: Warm, dry, pink. Head: Normocephalic, atraumatic. Neck: Supple, trachea midline. Eye: Normal conjunctiva. Ears, nose, mouth and throat: Oral mucosa moist. Cardiovascular: Normal peripheral perfusion. Respiratory: Respirations are non-labored. Back: Normal alignment. Musculoskeletal: Normal ROM, normal strength. Neurological: Alert and oriented to person, place, time, and situation, normal motor observed, normal speech observed. Psychiatric: Cooperative, appropriate mood & affect. Medical Decision Making Differential Diagnosis: Diarrhea, gastroenteritis. Differential Diagnosis: Migraine, tension headache. Rationale: CBC, CMP, urinalysis ordered, IV fluids, Reglan, Toradol, Zofran given.. Results review: Lab results : Lab Flowsheet 12/21/2019 0:55 EDT UA Color Yellow UA Clarity CLEAR UA Glucose NEGATIVE UA Ketones NEGATIVE UA Spec Grav 1.025 UA Blood NEGATIVE UA pH 6.5 UA Protein NEGATIVE UA Urobilinogen 1.0 mg/dL UA Nitrite NEGATIVE UA Leuk Est NEGATIVE UA Bilirubin NEGATIVE Urine Source Clean Catch Micro? Not Indicated Culture? Not Indicated 12/21/2019 0:46 EDT Sodium Level 137.0 mmol/L Potassium Level 3.4 mmol/L LOW Chloride Level 107 mmol/L CO2 23 mmol/L Anion Gap 10.0 mmol/L Glucose Level 94.0 mg/dL BUN 14 mg/dL Creatinine Level 0.85 mg/dL BUN/Creat Ratio 16.0 eGFR AA >60 mL/min/1.73m2 NA eGFR Non AA >60 mL/min/1.73m2 NA Calcium Level 8.6 mg/dL LOW Bili Total 0.5 mg/dL Alk Phos 54 IU/L AST/SGOT 17 IU/L ALT/SGPT 23.0 IU/L Protein Total 6.8 gm/dL Albumin Level 3.9 gm/dL Globulin 2.9 gm/dL A/G Ratio 1.3 LOW Osmolality 274 mOsm/L NA WBC 12.9 x103/mcL HI RBC 4.67 x106/mcL Hgb 14.7 gm/dL Hct 43.2 % HI MCV 92 fL MCH 32 pg MCHC 34 gm/dL RDW 12.6 % Platelet 208 x103/mcL MPV 10.2 fL Auto Neut % 81 % Auto Lymph % 9 % LOW Auto Meigs % 6 % Auto Eos % 3.3 % Auto Baso % 0.3 % Neut Abs# 10.5 x103/mcL HI Lymph Abs# 1.2 x103/mcL LOW Meigs Abs# 0.8 x103/mcL Eos Abs# 0.4 x103/mcL Baso Abs# 0.0 x103/mcL Tube Collected Yes Tube Collected Yes . Notes: Patient symptoms improved with IV hydration, IV Benadryl, Reglan and Zofran.. Impression and Plan Diagnosis Gastroenteritis ([id number]-CA K52.9, Discharge, Medical) Headache ([id number] R51, Discharge, Medical) Plan Condition: Improved, Stable. Disposition: Discharged: to home. Patient was given the following educational materials: Viral Gastroenteritis, Adult, Txkq-hg-Fybj, Migraine Headache, Hpok-xt-Aeur, Migraine Headache, Tziw-at-Dqfh, Viral Gastroenteritis, Adult, Izdp-rf-Gqpf. Follow up with: KO FREEMAN Within 3 to 5 days. Counseled: Patient, Regarding diagnosis, Regarding diagnostic results, Regarding treatment plan, Patient indicated understanding of instructions. [Electronically Signed on: 12/21/2019 07:54 EDT] Cyrus Resendez MD [Verified on: 12/21/2019 07:54 EDT] Cyrsu Resendez MD [facility] ED Note-Nursingon 12-21-2019 ED Note-Nursing patient arrived via private vehicle. patient walked to room 4 without assistance. patient states she has a history of headaches and usually takes ibuprofen and Benadryl then they go away. patient states she took the ibuprofen and Benadryl 2 hours ago, took a nap, but still has a headache. patient denies any fever or exposure to COVID 19. patient states she was also nauseous and took a Zofran tablet. patient states she was outside a lot today and may also be dehydrated. [facility] ED Patient Education Noteon 12-21-2019 ED Patient Education Note Education Materials Gastroenterology Viral Gastroenteritis, Adult Viral gastroenteritis is also known as the stomach flu. This condition is caused by certain germs (viruses). These germs can be passed from person to person very easily (are very contagious). This condition can cause sudden watery poop (diarrhea), fever, and throwing up (vomiting). Having watery poop and throwing up can make you feel weak and cause you to get dehydrated. Dehydration can make you tired and thirsty, make you have a dry mouth, and make it so you pee (urinate) less often. Older adults and people with other diseases or a weak defense system (immune system) are at higher risk for dehydration. It is important to replace the fluids that you lose from having watery poop and throwing up. Follow these instructions at home: Follow instructions from your doctor about how to care for yourself at home. Eating and drinking Follow these instructions as told by your doctor: ? Take an oral rehydration solution (ORS). This is a drink that is sold at pharmacies and stores. ? Drink clear fluids in small amounts as you are able, such as: ? Water. ? Ice chips. ? Diluted fruit juice. ? Low-calorie sports drinks. ? Eat bland, tnno-in-qficrx foods in small amounts as you are able, such as: ? Bananas. ? Applesauce. ? Rice. ? Low-fat (lean) meats. ? [place]. ? Crackers. ? Avoid fluids that have a lot of sugar or caffeine in them. ? Avoid alcohol. ? Avoid spicy or fatty foods. General instructions ? Drink enough fluid to keep your pee (urine) clear or pale yellow. ? Wash your hands often. If you cannot use soap and water, use hand injection molding technician. ? Make sure that all people in your home wash their hands well and often. ? Rest at home while you get better. ? Take fypr-ypv-npwqjym and prescription medicines only as told by your doctor. ? Watch your condition for any changes. ? Take a warm bath to help with any burning or pain from having watery poop. ? Keep all follow-up visits as told by your doctor. This is important. Contact a doctor if: ? You cannot keep fluids down. ? Your symptoms get worse. ? You have new symptoms. ? You feel light-headed or dizzy. ? You have muscle cramps. Get help right away if: ? You have chest pain. ? You feel very weak or you pass out (faint). ? You see blood in your throw-up. ? Your throw-up looks like coffee grounds. ? You have bloody or black poop (stools) or poop that look like tar. ? You have a very bad headache, a stiff neck, or both. ? You have a rash. ? You have very bad pain, cramping, or bloating in your belly (abdomen). ? You have trouble breathing. ? You are breathing very quickly. ? Your heart is beating very quickly. ? Your skin feels cold and clammy. ? You feel confused. ? You have pain when you pee. ? You have signs of dehydration, such as: ? Dark pee, hardly any pee, or no pee. ? Cracked lips. ? Dry mouth. ? Sunken eyes. ? Sleepiness. ? Weakness. This information is not intended to replace advice given to you by your health care provider. Make sure you discuss any questions you have with your health care provider. Document Released: 11/16/2008 Document Revised: 02/22/2019 Document Reviewed: 02/04/2016 [employer] Interactive Patient Education ? 2019 [employer]. Neurology Migraine Headache Use Tylenol, ibuprofen and Benadryl as needed for the headache. Follow-up with your primary care physician in 3 to 5 days to review this emergency room visit. Return to the emergency room for any worsening symptoms. A migraine headache is a very strong throbbing pain on one side or both sides of your head. Migraines can also cause other symptoms. Talk with your doctor about what things may bring on (trigger) your migraine headaches. Follow these instructions at home: Medicines ? Take ctye-vsm-gbdghzo and prescription medicines only as told by your doctor. ? Do not drive or use heavy machinery while taking prescription pain medicine. ? To prevent or treat constipation while you are taking prescription pain medicine, your doctor may recommend that you: ? Drink enough fluid to keep your pee (urine) clear or pale yellow. ? Take rsle-ahx-mriqgew or prescription medicines. ? Eat foods that are high in fiber. These include fresh fruits and vegetables, whole grains, and beans. ? Limit foods that are high in fat and processed sugars. These include fried and sweet foods. Lifestyle ? Avoid alcohol. ? Do not use any products that contain nicotine or tobacco, such as cigarettes and e-cigarettes. If you need help quitting, ask your doctor. ? Get at least 8 hours of sleep every night. ? Limit your stress. General instructions ? Keep a journal to find out what may bring on your migraines. For example, write down: ? What you eat and drink. ? How much sleep you get. ? Any change in what you eat or drink. ? Any change in your medicines. ? If you have a migraine: ? Avoid things that make your symptoms worse, such as bright lights. ? It may help to lie down in a dark, quiet room. ? Do not drive or use heavy machinery. ? Ask your doctor what activities are safe for you. ? Keep all follow-up visits as told by your doctor. This is important. Contact a doctor if: ? You get a migraine that is different or worse than your usual migraines. Get help right away if: ? Your migraine gets very bad. ? You have a fever. ? You have a stiff neck. ? You have trouble seeing. ? Your muscles feel weak or like you cannot control them. ? You start to lose your balance a lot. ? You start to have trouble walking. ? You pass out (faint). This information is not intended to replace advice given to you by your health care provider. Make sure you discuss any questions you have with your health care provider. Document Released: 03/09/2009 Document Revised: 02/22/2019 Document Reviewed: 11/16/2016 [employer] Interactive Patient Education ? 2019 [employer]. Normal [facility] ED Patient Summaryon 020 ED Patient Summary [facility] - Emergency Department [address] [place] [address] PATIENT DISCHARGE INSTRUCTIONS Patient Information Name: KELI ESTRADA Age: 19 Years Date of : 2000 Reason For Visit: Diarrhea; Headache; Diarrhea; Headache - Recurrent; HEADACHE, BODY ACHES Arrival Time: 12/21/2019 00:29:46 Primary Care Physician: KO FREEMAN Attending Physician: Cyrus Resendez MD Comment: Visit Diagnosis: Diagnoses This Visit Diarrhea ([id number]) Diarrhea ([id number]) Gastroenteritis (K52.9) Headache (R51) Headache ([id number]) Headache - Recurrent ([id number]) Prescription Information: If you have been given a prescription for narcotics, seek immediate medical attention if you have any difficulty breathing or any sudden status changes such as confusion and sleepiness. If you or anyone you know is experiencing suicidal thoughts, mental health, alcohol and/or drug addiction problems; contact the [facility] 04/01 Crisis Hotline -Text 4HCFN fo 125972. If you received any narcotics, sedation, or any other medication that causes drowsiness for the next 24 hours, unless otherwise directed: ? Do not drive a car. ? Do not operate machinery such as power tools, lawn mowers, drills, sewing machines, or stoves ? Avoid alcoholic beverages and drugs for allergies, nerves, or sleep ? Do not make important personal or business decisions or sign any legal documents With: Address: When: KO FREEMAN [address] [place] [address] [place], [place] [id number] Business (1) Within 3 to 5 days Medication Information: The exam and treatment you received today in the [facility] Emergency Department were for an urgent problem and are not intended as complete care. It is important for you to follow up with a doctor, nurse practitioner, or physician?s assistant director of admissions for ongoing care. If your symptoms become worse or you do not improve as expected and you are unable to reach your usual health care provider, you should return to the Emergency Department, we are available 24 hours a day. For those patients who have received Radiology results, the interpretation of your X-ray as given to you by our Emergency Department physician is only a preliminary report. The Radiologist will review your films and if there is a change in the diagnosis you will be notified by phone. Please make sure you have provided a working phone number so we can reach you if necessary. In the event that you had a lab culture while you were a patient in the Emergency Department, you will be notified by phone if there is a need to change your antibiotic. Please make sure you have provided a working phone number so we can reach you if necessary. [facility] Emergency Department has provided you with a complete list of medications post discharge. Please inform your tin tie machine operator automatic/provider of your visit and for further instruction on these medications. Any specific questions regarding your chronic medications and dosages should be discussed with your primary care physician(s) and/or pharmacist. Medications to Continue That Have Not Changed Other Medications cetirizine (ZyrTEC) every day. drospirenone-estradio l Oral every day. leuprolide (Lupron) 1 Milligram Subcutaneous every 24 hours. levonorgestrel (Mirena 52 mg intrauterine device) 1 Each Intrauteral once for 1 Doses. ondansetron (Zofran 4 mg oral tablet) 1 tab(s) Oral every 8 hours. pantoprazole (Protonix 40 mg oral delayed release tablet) 1 tab(s) Oral every day. Visit Information Allergies: Substance Reaction Symptoms Type Comments Bactrim Drug cefTRIAXone Drug tobramycin Drug Vital Signs: Vitals and Measurements this Visit (last charted value for your 12/21/2019 visit) Vital Signs This Visit Temperature Temporal: 37.1 DegC Peripheral Pulse Rate: 88 bpm Respiratory Rate: 16 br/min Systolic Blood Pressure: 125 mmHg Diastolic Blood Pressure: 78 mmHg SpO2: 100 % Oxygen Therapy: Room air Measurements This Visit Height/Length Dosin.000 cm Height/Length Estimated: 162.000 cm Weight Dosin.470 kg Weight Estimated: 122.470 kg Problems List: Problem Onset Comments No Problems found Patient Education Migraine Headache Use Tylenol, ibuprofen and Benadryl as needed for the headache. Follow-up with your primary care physician in 3 to 5 days to review this emergency room visit. Return to the emergency room for any worsening symptoms. A migraine headache is a very strong throbbing pain on one side or both sides of your head. Migraines can also cause other symptoms. Talk with your doctor about what things may bring on (trigger) your migraine headaches. Follow these instructions at home: Medicines ? Take cthx-gyt-rymmzgf and prescription medicines only as told by your doctor. ? Do not drive or use heavy machinery while taking prescription pain medicine. ? To prevent or treat constipation while you are taking prescription pain medicine, your doctor may recommend that you: ? Drink enough fluid to keep your pee (urine) clear or pale yellow. ? Take hvhc-vtu-docoxkv or prescription medicines. ? Eat foods that are high in fiber. These include fresh fruits and vegetables, whole grains, and beans. ? Limit foods that are high in fat and processed sugars. These include fried and sweet foods. Lifestyle ? Avoid alcohol. ? Do not use any products that contain nicotine or tobacco, such as cigarettes and e-cigarettes. If you need help quitting, ask your doctor. ? Get at least 8 hours of sleep every night. ? Limit your stress. General instructions ? Keep a journal to find out what may bring on your migraines. For example, write down: ? What you eat and drink. ? How much sleep you get. ? Any change in what you eat or drink. ? Any change in your medicines. ? If you have a migraine: ? Avoid things that make your symptoms worse, such as bright lights. ? It may help to lie down in a dark, quiet room. ? Do not drive or use heavy machinery. ? Ask your doctor what activities are safe for you. ? Keep all follow-up visits as told by your doctor. This is important. Contact a doctor if: ? You get a migraine that is different or worse than your usual migraines. Get help right away if: ? Your migraine gets very bad. ? You have a fever. ? You have a stiff neck. ? You have trouble seeing. ? Your muscles feel weak or like you cannot control them. ? You start to lose your balance a lot. ? You start to have trouble walking. ? You pass out (faint). This information is not intended to replace advice given to you by your health care provider. Make sure you discuss any questions you have with your health care provider. Document Released: 03/09/2009 Document Revised: 02/22/2019 Document Reviewed: 11/16/2016 [employer] Interactive Patient Education ? 2019 [employer]. Viral Gastroenteritis, Adult Viral gastroenteritis is also known as the stomach flu. This condition is caused by certain germs (viruses). These germs can be passed from person to person very easily (are very contagious). This condition can cause sudden watery poop (diarrhea), fever, and throwing up (vomiting). Having watery poop and throwing up can make you feel weak and cause you to get dehydrated. Dehydration can make you tired and thirsty, make you have a dry mouth, and make it so you pee (urinate) less often. Older adults and people with other diseases or a weak defense system (immune system) are at higher risk for dehydration. It is important to replace the fluids that you lose from having watery poop and throwing up. Follow these instructions at home: Follow instructions from your doctor about how to care for yourself at home. Eating and drinking Follow these instructions as told by your doctor: ? Take an oral rehydration solution (ORS). This is a drink that is sold at pharmacies and stores. ? Drink clear fluids in small amounts as you are able, such as: ? Water. ? Ice chips. ? Diluted fruit juice. ? Low-calorie sports drinks. ? Eat bland, iuur-xn-tdjqap foods in small amounts as you are able, such as: ? Bananas. ? Applesauce. ? Rice. ? Low-fat (lean) meats. ? [place]. ? Crackers. ? Avoid fluids that have a lot of sugar or caffeine in them. ? Avoid alcohol. ? Avoid spicy or fatty foods. General instructions ? Drink enough fluid to keep your pee (urine) clear or pale yellow. ? Wash your hands often. If you cannot use soap and water, use hand injection molding technician. ? Make sure that all people in your home wash their hands well and often. ? Rest at home while you get better. ? Take seou-grq-uoijddp and prescription medicines only as told by your doctor. ? Watch your condition for any changes. ? Take a warm bath to help with any burning or pain from having watery poop. ? Keep all follow-up visits as told by your doctor. This is important. Contact a doctor if: ? You cannot keep fluids down. ? Your symptoms get worse. ? You have new symptoms. ? You feel light-headed or dizzy. ? You have muscle cramps. Get help right away if: ? You have chest pain. ? You feel very weak or you pass out (faint). ? You see blood in your throw-up. ? Your throw-up looks like coffee grounds. ? You have bloody or black poop (stools) or poop that look like tar. ? You have a very bad headache, a stiff neck, or both. ? You have a rash. ? You have very bad pain, cramping, or bloating in your belly (abdomen). ? You have trouble breathing. ? You are breathing very quickly. ? Your heart is beating very quickly. ? Your skin feels cold and clammy. ? You feel confused. ? You have pain when you pee. ? You have signs of dehydration, such as: ? Dark pee, hardly any pee, or no pee. ? Cracked lips. ? Dry mouth. ? Sunken eyes. ? Sleepiness. ? Weakness. This information is not intended to replace advice given to you by your health care provider. Make sure you discuss any questions you have with your health care provider. Document Released: 11/16/2008 Document Revised: 02/22/2019 Document Reviewed: 02/04/2016 [employer] Interactive Patient Education ? 2019 [employer] Viruses or Bacteria What?s got you sick? Antibiotics only treat bacterial infections. Viral illnesses cannot be treated with antibiotics. When an antibiotic is not prescribed, ask your healthcare professional for tips on how to relieve symptoms and feel better. Usual Cause Illness Viruses Bacteria Antibiotic Needed Cold/Runny Nose NO Bronchitis/Chest Cold (in otherwise healthy children and adults) NO Whooping Cough Yes Flu NO Strep Throat Yes Sore Throat (except strep) NO Fluid in the middle ear (otitis media with effusion) NO Urinary Tract Infection Yes Antibiotics Aren?t Always the Answer www.cdc.gov/getsmart GET SMART Know When Antibiotics Work U.S. Department of Health and Human Services Centers for Disease Control and Prevention February 2014 Normal [facility] Extra Redon 12-21-2019 Tube Collected Yes [facility] Comment on above: Performed By: #### 1 [id number] ####[facility] (DEFAULT)[address] [place] [address] Pharmacy Noteon 12-21-2019 Pharmacy Note I have personally reviewed the patient's current home medication list including, prescription medications, OTC products, vitamins and supplements. Home medications reviewed upon admission as follows: Active Medications cetirizine: Daily, 0 Refill(s), Refills: 0 drospirenone-estradio l: PO, Daily, 0 Refill(s), Refills: 0 leuprolide: 1 mg, SubQ, q24hr (int), 0 Refill(s), Refills: 0 levonorgestrel: 52 mg = 1 EA, Intrauteral, Once, for 1 doses, 1 EA, 0 Refill(s), Refills: 0 ondansetron: 4 mg = 1 tab(s), PO, q8hr (int), 0 Refill(s), Refills: 0 pantoprazole: 40 mg = 1 tab(s), PO, Daily, 0 Refill(s), Refills: 0 Status of Medication History: Incomplete Source of Information: Pharmacy Records Changes Made: - Medications Added to List: PROAIR HFA - 2P QID PRN DULERA 100MCG - 2P BID FLUCONAZOLE 150 - TAD ESTRADIOL 0.5MG - 1T PO QD - Medications Modified: ZOFRAN 4 - SHOULD BE Q6 NOT Q8 - Medications Removed from List: state reason (i.e. no longer taking, strength change, etc) NONE Other Comments: VERIFY LUPRON LAST DOSE CONFIRM IF PATIENT HAS IUD OR ORAL CONTROL, DOCUMENTED HAS MIRENA AND ORAL MED [Electronically Signed on: 12/21/2019 15:00 EDT] Carolyn Medina [Verified on: 12/21/2019 15:00 EDT] Carolyn Medina [facility] UA w Culture if Ind Standard on 12-21-2019 Breakpoint UA [facility] Comment on above: Performed By: #### 1 [id number] #### [facility] (DEFAULT) [address] [place] [id number] Color (U) Yellow [facility] Comment on above: Performed By: #### 1 [id number] #### [facility] (DEFAULT) [address] [place] [id number] Culture? Not Indicated [facility] Comment on above: Performed By: #### 1 [id number] #### [facility] (DEFAULT) [address] [place] [address] [id number] Glucose (U) [Mass/Vol] Negative [facility] Comment on above: Performed By: #### 1 [id number] #### [facility] (DEFAULT) [address] [place] [id number] Ketones Ql (U) Negative [facility] Comment on above: Performed By: #### 1 [id number] #### [facility] (DEFAULT) [address] [place] [address]70 Micro? Not Indicated [facility] Comment on above: Performed By: #### 1 [id number] #### [facility] (DEFAULT) [address] [place], [place] [address] UA Bilirubin Negative Normal [facility] Comment on above: Performed By: #### 1 [id number], 3891254, 70440866, 4651799, [id number], [id number] #### [facility] (DEFAULT) [address] [place] [address] UA Blood Negative Normal NEGATIVE [facility] Comment on above: Performed By: #### 1 [id number], 4860630, 46081261, 1427932, 2434559336, [id number] #### [facility] (DEFAULT) [address] [place] [address] UA Clarity CLEAR Normal CLEAR [facility] Comment on above: Performed By: #### 1 [id number], 0979888, 77786392, 9893767, 4839474394, [id number] #### [facility] (DEFAULT) [address] [place] [address] UA Leuk Est Negative Normal NEGATIVE [facility] Comment on above: Performed By: #### 1 [id number], 2175494, 82803087, 8902021, 5832150816, 7310215193 #### [facility] (DEFAULT) [address] [place] [address] UA Nitrite Negative Normal NEGATIVE [facility] Comment on above: Performed By: #### 1 [id number], 4586663, 86314028, 8593699, 8159390560, 6444467792 #### [facility] (DEFAULT) [address] [place] [address]51 UA pH 6.5 Normal 5-8 [facility] Comment on above: Performed By: #### 1 [id number], 9723165, 23909934, 2981763, 2951209520, [id number] #### [facility] (DEFAULT) [address] [place] [address] 80944 UA Protein Negative Normal NEGATIVE [facility] Comment on above: Performed By: #### 1 [id number], 1088807, 05495631, 6851851, 1559487337, [id number] #### [facility] (DEFAULT) [address] [place] [address] 16719 UA Spec Grav 1.025 Normal 1.001-1.035 [facility] Comment on above: Performed By: #### 1 086273573, 6479417, 00318315, 6699463, 2529954412, 2252439220 #### [facility] (DEFAULT) [address] [place] [address] 18563 UA Urobilinogen 1.0 mg/dL Normal 0.2-1.0 [facility] Comment on above: Performed By: #### 1 [id number], 7170790, 84408223, 7147727, 9582619866, 7906569377 #### [facility] (DEFAULT) [address] [place] [address]53 Urine Source Clean Catch [facility] Comment on above: Performed By: #### 1 [id number], 1739825, 89357433, 4043049, 8256042998, [id number] #### [facility] (DEFAULT) [address] [place] [address] Coding Summaryon 08-21-2019 Coding Summary CODING DATE: 08/21/2019 [facility] STATUS: Home PAYOR: Self Pay ADMIT DX: REASON FOR VISIT DX: R11.10 Vomiting, unspecified R11.2 Nausea with vomiting, unspecified FINAL DX: PRINCIPAL: R12 Heartburn SECONDARY: R11.2 Nausea with vomiting, unspecified PYMT PROC APC STAT DESCRIPTION DOCTOR NAME DATE NOTE: The code number assigned matches the documented diagnosis and / or procedure in the patient's chart. However, the narrative phrase printed from the coding software may appear abbreviated, or result in slightly different terminology. Coded By: Chrisotph Gonzalez' Date Saved: 08/21/2019 02:57 pm [facility] Coding Summary CODING DATE: 08/21/2019 FINAL [facility] STATUS: Home PAYOR: Self Pay ADMIT DX: REASON FOR VISIT DX: R11.10 Vomiting, unspecified R11.2 Nausea with vomiting, unspecified FINAL DX: PRINCIPAL: R12 Heartburn SECONDARY: R11.10 Vomiting, unspecified PYMT PROC APC STAT DESCRIPTION DOCTOR NAME DATE NOTE: The code number assigned matches the documented diagnosis and / or procedure in the patient's chart. However, the narrative phrase printed from the coding software may appear abbreviated, or result in slightly different terminology. Coded By: Christoph Gonzalez' Date Saved: 08/21/2019 02:55 pm Normal [facility] .Auto Diff 1on 08-16-2019 Auto Meigs % 6 % Normal 12 [facility] Comment on above: Performed By: #### 1 [id number], 6870623, 90025914, 8649638, 1975512376, [id number] #### [facility] (DEFAULT) [address] [place] [address] 24773 Baso Abs# 0.0 x10 Normal 0.0-0.2 [facility] Comment on above: Performed By: #### 1 [id number], 1500163, 04790992, 3329434, 3317560433, 4650647327 #### [facility] (DEFAULT) [address] [place] [address] 85270 Basophils/100 WBC (Bld) 0.3 % Normal 0.2-2.0 [facility] Comment on above: Performed By: #### 1 [id number], 3079837, 94242847, 2777749, 6711680240, [id number] #### [facility] (DEFAULT) [address] [place] [address] 20792 Eos Abs# 0.7 x10 High 0.0-0.4 [facility] Comment on above: Performed By: #### 1 [id number], 0589604, 90734509, 4590177, 4898452735, 7612679101 #### [facility] (DEFAULT) [address] [place] [address] 75304 Eosinophils/100 WBC (Bld) 5.8 % High 0.9-4.0 [facility] Comment on above: Performed By: #### 1 832690923, 0337398, 93799134, 6197965, 2455475133, 2685590543 #### [facility] (DEFAULT) [address] [place] [address] Lymphocytes (Bld) [#/Vol] 2.6 x10 Normal 1.3-2.9 [facility] Comment on above: Performed By: #### 1 [id number], 8308533, 41772581, 7824843, 8788613726, 5522380044 #### [facility] (DEFAULT) [address] [place] [address] Lymphocytes/100 WBC (Bld) 22 % Normal 14-48 [facility] Comment on above: Performed By: #### 1 [id number], 1422790, 10446691, 6484175, 3197050004, 6019686032 #### [facility] (DEFAULT) [address] [place] [address] Meigs Abs# 0.6 x10 Normal 0.0-0.8 [facility] Comment on above: Performed By: #### 1 355897317, 8228912, 66602739, 6864040, 7565340549, 8116530141 #### [facility] (DEFAULT) [address] [place] [address] Neut Abs# 7.6 x10 Normal 1.5-9.2 [facility] Comment on above: Performed By: #### 1 065562518, 8636508, 10956073, 5541965, 4254239911, 8958171945 #### [facility] (DEFAULT) [address] [place] [address] Neutrophils/100 WBC (Bld) 66 % Normal 44-88 [facility] Comment on above: Performed By: #### 1 538173668, 5888008, 83890033, 5281678, 1372539302, 3415563434 #### [facility] (DEFAULT) [address] [place] [address] CBC w/ Auto Diffon --202 0 Erythrocyte distribution width (RBC) [Ratio] 12.4 % Normal 11.5-15.0 [facility] Comment on above: Performed By: #### 1 615215009, 3963428, 30262857, 7625558, 9726946348, 4791062213 #### [facility] (DEFAULT) [address] [place] [address] Hematocrit (Bld) [Volume fraction] 43.9 % High 33.7-40.4 [facility] Comment on above: Performed By: #### 1 714828137, 3064426, 72487443, 8954537, 5879269351, 8210422478 #### [facility] (DEFAULT) [address] [place] [address] Hemoglobin (Bld) [Mass/Vol] 15.1 g/dL Normal 11.3-15.9 [facility] Comment on above: Performed By: #### 1 000666626, 4063812, 98131465, 0100644, 1623737471, 1827356378 #### [facility] (DEFAULT) [address] [place] [address] Man Diff? Auto Normal [facility] Comment on above: Performed By: #### 1 930361541, 5245829, 60224220, 0808003, 0550748391, 1113652441 #### [facility] (DEFAULT) [address] [place] [address] 90956 MCH (RBC) [Entitic mass] 31 pg Normal 24-34 [facility] Comment on above: Performed By: #### 1 866513442, 8134497, 24521878, 0359079, 8867008794, 5399433986 #### [facility] (DEFAULT) [address] [place] [address] 59744 MCHC (RBC) [Mass/Vol] 34 g/dL Normal 26-37 [facility] Comment on above: Performed By: #### 1 338906489, 9374894, 33017394, 9053123, 4362288538, 6466807968 #### [facility] (DEFAULT) [address] [place] [address] 37034 MCV (RBC) [Entitic vol] 90 fL Normal 81-100 [facility] Comment on above: Performed By: #### 1 468540978, 1063299, 89182268, 0215673, 4291601486, 3266508949 #### [facility] (DEFAULT) [address] [place] [address] 81352 Platelet mean volume (Bld) [Entitic vol] 10.5 fL High 6.3-10.2 [facility] Comment on above: Performed By: #### 1 755953226, 8855902, 77040443, 9779010, 5129623942, 2179376826 #### [facility] (DEFAULT) [address] [place] [address] 16184 Platelets (Bld) [#/Vol] 207 x10 Normal 138-427 [facility] Comment on above: Performed By: #### 1 678735332, 9598047, 21445523, 3662963, 0484741937, 4078602826 #### [facility] (DEFAULT) [address] [place] [address] 82720 RBC (Bld) [#/Vol] 4.87 x10 Normal 3.70-5.30 [facility] Comment on above: Performed By: #### 1 870276162, 4841427, 45456224, 1050278, 7798425783, 5373034610 #### [facility] (DEFAULT) [address] [place] [address] 37565 WBC (Bld) [#/Vol] 11.6 x10 [facility] Comment on above: Performed By: #### 1 376393816, 8192680, 93962557, 8936042, 6180114216, 3479643451 #### [facility] (DEFAULT) [address] [place] [address] 63981 CMP Standardon 08-16-2019 eGFR Non AA >60 [facility] Comment on above: Performed By: #### 1 [id number], 1464969, 84079361, 5456493, 1095319748, 5881227205 #### [facility] (DEFAULT) [address] [place] [address] 41822 eGFR AA >60 [facility] Comment on above: Result Comment: [facility]ist angie Kidney disease could be indicated at eGFRs of less than 60 ml/min/1.73m2. Kidney Failure is indicated at less than 15 ml/min/1.73m2 Performed By: #### 1 486361892, 6738774, 47122775, 2043067, 2276136564, 8705113561 #### [facility] (DEFAULT) [address] [place] [address] 17478 Albumin [Mass/Vol] 4.5 g/dL Normal 3.5-5.0 [facility] Comment on above: Performed By: #### 1 511933013, 3101473, 99487748, 3500218, 9823706087, 8610847062 #### [facility] (DEFAULT) [address] [place] [address] 64177 Albumin/Globulin [Mass ratio] 1.5 {ratio} Normal 1.4-2.6 [facility] Comment on above: Performed By: #### 1 208468293, 4397889, 40648063, 2832995, 0038066493, 8088705661 #### [facility] (DEFAULT) [address] [place] [address] 26521 Alk Phos 55 IU/L Normal 32-91 [facility] Comment on above: Performed By: #### 1 687006686, 7507129, 38606759, 0979877, 5235163854, 8619882316 #### [facility] (DEFAULT) [address] [place] [address] 89168 ALT/SGPT 35.0 IU/L Normal 14.0-54.0 [facility] Comment on above: Performed By: #### 1 836930686, 0650645, 96968740, 2711927, 4485858096, 3051431005 #### [facility] (DEFAULT) [address] [place] [address] 00586 Anion gap [Moles/Vol] 13.0 mmol/L Normal 5.0-19.0 [facility] Comment on above: Performed By: #### 1 919635866, 2891151, 41831477, 4279821, 9725170329, 0263925507 #### [facility] (DEFAULT) [address] [place] [address] 56913 AST/SGOT 25 IU/L Normal 15-41 [facility] Comment on above: Performed By: #### 1 107566949, 6943544, 72408386, 7978937, 3105924109, 3181613616 #### [facility] (DEFAULT) [address] [place] [address] 40509 Bili Total 0.8 mg/dL Normal 0.3-1.2 [facility] Comment on above: Performed By: #### 1 076732132, 5395996, 06553524, 1877580, 9822150117, 7394497289 #### [facility] (DEFAULT) [address] [place] [address] 34076 Calcium [Mass/Vol] 9.6 mg/dL Normal 8.9-10.3 [facility] Comment on above: Performed By: #### 1 705106425, 2599503, 12228313, 1445325, 1118717610, 1952315366 #### [facility] (DEFAULT) [address] [place] [address] 41310 Chloride [Moles/Vol] 107 mmol/L Normal 101-111 [facility] Comment on above: Performed By: #### 1 504161332, 6851628, 24560884, 2460530, 7932836438, 6502608036 #### [facility] (DEFAULT) [address] [place] [address] 10294 CO2 [Moles/Vol] 25 mmol/L Normal 21-32 [facility] Comment on above: Performed By: #### 1 461847040, 4725584, 48310123, 1434166, 7955727078, 6788723340 #### [facility] (DEFAULT) [address] [place] [address] 92908 Creatinine [Mass/Vol] 0.81 mg/dL Normal 0.60-1.30 [facility] Comment on above: Performed By: #### 1 374552430, 6554054, 78623380, 1317981, 1178289466, 5023388014 #### [facility] (DEFAULT) [address] [place] [address] 14182 Globulin (S) [Mass/Vol] 3.0 g/dL Normal 1.5-4.3 [facility] Comment on above: Performed By: #### 1 863939196, 8771662, 66837888, 5618892, 2089777483, 8916736863 #### [facility] (DEFAULT) [address] [place] [address] 36643 Glucose [Mass/Vol] 83.0 mg/dL Normal 74.0-118.0 [facility] Comment on above: Performed By: #### 1 514363228, 6404222, 58403806, 0976910, 8768491937, 8491694777 #### [facility] (DEFAULT) [address] [place] [address] 54602 Osmolality [Osmolality] 282 mOsm/L [facility] Comment on above: Performed By: #### 1 051584628, 2848134, 73077543, 5478923, 7134332694, 6677018374 #### [facility] (DEFAULT) [address] [place] [address] 61270 Potassium [Moles/Vol] 3.6 mmol/L Normal 3.6-5.1 [facility] Comment on above: Performed By: #### 1 844670780, 8064719, 58672071, 5981227, 4700253848, 8636218554 #### [facility] (DEFAULT) [address] [place] [address] 06167 Protein [Mass/Vol] 7.5 g/dL Normal 6.5-8.1 [facility] Comment on above: Performed By: #### 1 714701108, 9898616, 02488590, 2557423, 0600610728, 1774157011 #### [facility] (DEFAULT) [address] [place] [address] 41083 Sodium [Moles/Vol] 141.0 mmol/L Normal 136.0-144.0 [facility] Comment on above: Performed By: #### 1 039336159, 5177162, 42443438, 8415397, 1749541304, 0285125993 #### [facility] (DEFAULT) [address] [place] [address] 25322 Urea nitrogen [Mass/Vol] 18 mg/dL Normal 8-26 [facility] Comment on above: Performed By: #### 1 515878376, 5744999, 80303235, 4903900, 9330150149, 0222186011 #### [facility] (DEFAULT) [address] [place] [address] Urea nitrogen/Creatinine [Mass ratio] 22.0 mg/mg High 4.6-16.2 [facility] Comment on above: Performed By: #### 1 524455855, 6901804, 03078516, 2397140, 0927630771, 4264146540 #### [facility] (DEFAULT) [address] [place] [address] 16624 ED Clinical Summaryon 2019 ED Clinical Summary [facility] - Emergency Department [address] [place] [address]59 ED Clinical Summary PERSON INFORMATION Name: KELI ESTRAAD Age: 19 Years Sex: FEMALE : 2000 MRN: Acct#: Visit Reason: Medical problem - minor; Vomiting; VOMITING, WEAKNESS Arrival: 08/16/2019 18:56:00 Discharge: 08/16/2019 21:16:00 LOS: 000 02:20 Check In: 08/16/2019 18:56:00 Checkout:08/16/2019 21:16:00 Address: [place] [address] PCP: KO FREEMAN PROVIDER INFORMATION Provider Role Assigned Unassigned Lana Soria RN ED Nurse 08/16/2019 19:33:03 Fernando Quiroz DO ED Provider 08/16/2019 19:37:16 Cyrus Resendez MD ED Provider 08/16/2019 21:10:21 VITALS INFORMATION Vital Sign Triage Latest Temperature Tympanic Temperature Temporal Artery Pulse Rate 78 bpm 78 bpm O2 Sat 98 % 98 % Respiratory Rate 18 br/min 18 br/min Blood Pressure /99 mmHg /99 mmHg MEDICAL INFORMATION Medications Given: Medication Dose Route GI Cocktail 1 EA PO Allergy Information: cefTRIAXone; Bactrim; tobramycin PHYSICIAN DOCUMENTATION Patient: KELI ESTRADA Age: 19 years Sex: FEMALE : 2000 Associated Diagnoses: Heartburn symptom; Vomiting Author: Cyrus Resendez MD Basic Information Addendum: Time of addendum:: 08/16/2019 21:10:[address] Quiroz's note for the history and physical exam, I assumed this patient's care at shift change while her labs were pending. Patient is a 19-year-old white female with history of reflux symptoms. Medical Decision Making Results review: Lab results : Lab Flowsheet 08/16/2019 20:10 EST Influenza A Negative Influenza B Negative 08/16/2019 20:00 EST Sodium Level 141.0 mmol/L Potassium Level 3.6 mmol/L Chloride Level 107 mmol/L CO2 25 mmol/L Anion Gap 13.0 mmol/L Glucose Level 83.0 mg/dL BUN 18 mg/dL Creatinine Level 0.81 mg/dL BUN/Creat Ratio 22.0 HI eGFR AA >60 mL/min/1.73m2 NA eGFR Non AA >60 mL/min/1.73m2 NA Calcium Level 9.6 mg/dL Bili Total 0.8 mg/dL Alk Phos 55 IU/L AST/SGOT 25 IU/L ALT/SGPT 35.0 IU/L Protein Total 7.5 gm/dL Albumin Level 4.5 gm/dL Globulin 3.0 gm/dL A/G Ratio 1.5 Lipase Level 30.0 IU/L Osmolality 282 mOsm/L NA WBC 11.6 x103/mcL HI RBC 4.87 x106/mcL Hgb 15.1 gm/dL Hct 43.9 % HI MCV 90 fL MCH 31 pg MCHC 34 gm/dL RDW 12.4 % Platelet 207 x103/mcL MPV 10.5 fL HI Auto Neut % 66 % Auto Lymph % 22 % Auto Meigs % 6 % Auto Eos % 5.8 % HI Auto Baso % 0.3 % Neut Abs# 7.6 x103/mcL Lymph Abs# 2.6 x103/mcL Meigs Abs# 0.6 x103/mcL Eos Abs# 0.7 x103/mcL HI Baso Abs# 0.0 x103/mcL Tube Collected Yes Tube Collected Yes . Notes: Patient symptoms improved with GI cocktail. Patient counseled that her lab work is otherwise unremarkable. She was advised to follow-up with her primary care physician in 3 to 5 days. She is in agreement with this plan.. Impression and Plan Diagnosis Heartburn symptom ([id number] R12, Discharge, Medical) Vomiting ([id number] R11.10, Discharge, Medical) Plan Condition: Improved, Stable. Disposition: Discharged: to home. Patient was given the following educational materials: Heartburn, Vomiting, Adult, Vomiting, Adult, Heartburn. Follow up with: KO FREEMAN Within 3 to 5 days. Counseled: Patient, Regarding diagnosis, Regarding diagnostic results, Regarding treatment plan, Patient indicated understanding of instructions. Patient: KELI ESTRADA Age: 19 years Sex: FEMALE : 2000 Associated Diagnoses: None Author: Fernando Quiroz DO Basic Information Time seen: Date & time 08/16/2019 19:39:00. History source: Patient. Arrival mode: Private vehicle, walking. Additional information: Chief Complaint from Nursing Triage Note : Chief Complaint 08/16/2019 18:57 EST Chief Complaint patient presents to the ER with c/o vomiting and fever . History of Present Illness The patient presents with This patient presents to the emergency room for evaluation and treatment of epigastric discomfort, left upper, associated with vomiting this morning, she has had this before, as she has a history of reflux, she just states is a little bit worse today, no diarrhea, no urinary symptoms, taking fluids p.o., she states that normally this gets better after Zofran, she has Zofran at home for chronic nausea, but today her appetite did not return after her Zofran and that is why she came here to the emergency room. She is in general good health, but takes medications for reflux. 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 Freeman is her doctor, she did not see Dr. Clayton today. She denies any upper respiratory illnesses, states she did not have an influenza vaccine this year, states there is nobody sick around her. She is single, she states that she lost her dog today, 14 years, vehicle arrival. On exam, very nice lady, seen in room #9, her head is normocephalic, lungs are clear, heart rate and rhythm is regular murmur, her abdomen is soft she has some vague discomfort in the left upper quadrant, very big bowel sounds are normal there is no tenderness otherwise, she is overweight, no offense, extremities are nonswollen nontender, skin is warm and dry. Neurologic exam is symmetric and appropriate, psychiatric evaluation is appropriate. She is not diaphoretic.. Health Status Allergies: Allergic Reactions (Selected) Severity Not Documented Bactrim- No reactions were documented. CefTRIAXone- No reactions were documented. Tobramycin- No reactions were documented.. Medications: (Selected) Documented Medications Documented Lupron: 1 mg, SubQ, q24hr (int), 0 Refill(s) Mirena 52 mg intrauterine device: 52 mg = 1 EA, Intrauteral, Once, for 1 doses, 1 EA, 0 Refill(s) Protonix 40 mg oral delayed release tablet: 40 mg = 1 tab(s), PO, Daily, 0 Refill(s) Zofran 4 mg oral tablet: 4 mg = 1 tab(s), PO, q8hr (int), 0 Refill(s) ZyrTEC: Daily, 0 Refill(s) drospirenone-estradio l: PO, Daily, 0 Refill(s). Past Medical/ Family/ Social History Medical history: No active or resolved past medical history items have been selected or recorded.. Surgical history: No active procedure history items have been selected or recorded.. Family history: No family history items have been selected or recorded.. Social history: Social & Psychosocial Habits Tobacco 08/16/2019 Smoking tobacco use: 10 or more cigarettes (1/ Electronic Cigarette/Vaping 08/16/2019 Electronic Cigarette Use: Never . Problem list: No qualifying data available . Physical Examination Vital Signs Vital Signs 08/16/2019 18:57 EST Temperature Oral 37.5 DegC HI Peripheral Pulse Rate 78 bpm Respiratory Rate 18 br/min Systolic Blood Pressure 127 mmHg Diastolic Blood Pressure 99 mmHg HI SpO2 98 % Oxygen Therapy Room air . Measurements 08/16/2019 19:13 EST Weight Dosing 122.500 kg 08/16/2019 19:13 EST Height/Length Dosing 168.000 cm 08/16/2019 18:57 EST Height/Length Estimated 168.000 cm Weight Estimated 122.500 kg . Medical Decision Making Orders Launch Orders Laboratory: Influenza A&B Rapid (Order): Swab, 08/16/2019 19:56 EST, Stat collect, Nurse collect Influenza A&B Rapid (Order): Swab, 08/16/2019 19:55 EST, Stat collect, Nurse collect Lipase Level (Order): Blood, Stat collect, 08/16/2019 19:55 EST, Lab Collect CMP Standard (Order): Blood, Stat collect, 08/16/2019 19:55 EST, Lab Collect CBC w/ Auto Diff (Order): Blood, Stat collect, 08/16/2019 19:55 EST, Lab Collect Pharmacy: GI Cocktail (Order): 1 EA, PO, Once. Impression and Plan Plan Disposition: Patient care transitioned to: Time: 08/16/2019 20:01:00, Cyrus Resendez MD. Counseled: Patient, Regarding diagnosis, Regarding diagnostic results, Regarding treatment plan, Regarding prescription, Patient indicated understanding of instructions. DISCHARGE INFORMATION: Discharge Disposition: Home Discharge Location: Home PATIENT EDUCATION INFORMATION Instructions: Vomiting, Adult; Heartburn Follow-Up: With: Address: When: KO FREEMAN [address] [place], [place] [id number] Business (1) Within 3 to 5 days DIAGNOSIS: Heartburn symptom; Vomiting Patient Understands: Yes - Patient/family/caregi shanique verbalizes understanding of instructions given Comment: [facility] ED Note - Physicianon 2019 ED Note - Physician Patient: KELI ESTRADA Age: 19 years Sex: FEMALE : 2000 Associated Diagnoses: Heartburn symptom; Vomiting Author: Cyrus Resendez MD Basic Information Addendum: Time of addendum:: 08/16/2019 21:10:[address] Quiroz's note for the history and physical exam, I assumed this patient's care at shift change while her labs were pending. Patient is a 19-year-old white female with history of reflux symptoms. Medical Decision Making Results review: Lab results : Lab Flowsheet 08/16/2019 20:10 EST Influenza A Negative Influenza B Negative 08/16/2019 20:00 EST Sodium Level 141.0 mmol/L Potassium Level 3.6 mmol/L Chloride Level 107 mmol/L CO2 25 mmol/L Anion Gap 13.0 mmol/L Glucose Level 83.0 mg/dL BUN 18 mg/dL Creatinine Level 0.81 mg/dL BUN/Creat Ratio 22.0 HI eGFR AA >60 mL/min/1.73m2 NA eGFR Non AA >60 mL/min/1.73m2 NA Calcium Level 9.6 mg/dL Bili Total 0.8 mg/dL Alk Phos 55 IU/L AST/SGOT 25 IU/L ALT/SGPT 35.0 IU/L Protein Total 7.5 gm/dL Albumin Level 4.5 gm/dL Globulin 3.0 gm/dL A/G Ratio 1.5 Lipase Level 30.0 IU/L Osmolality 282 mOsm/L NA WBC 11.6 x103/mcL HI RBC 4.87 x106/mcL Hgb 15.1 gm/dL Hct 43.9 % HI MCV 90 fL MCH 31 pg MCHC 34 gm/dL RDW 12.4 % Platelet 207 x103/mcL MPV 10.5 fL HI Auto Neut % 66 % Auto Lymph % 22 % Auto Meigs % 6 % Auto Eos % 5.8 % HI Auto Baso % 0.3 % Neut Abs# 7.6 x103/mcL Lymph Abs# 2.6 x103/mcL Meigs Abs# 0.6 x103/mcL Eos Abs# 0.7 x103/mcL HI Baso Abs# 0.0 x103/mcL Tube Collected Yes Tube Collected Yes . Notes: Patient symptoms improved with GI cocktail. Patient counseled that her lab work is otherwise unremarkable. She was advised to follow-up with her primary care physician in 3 to 5 days. She is in agreement with this plan.. Impression and Plan Diagnosis Heartburn symptom ([id number] R12, Discharge, Medical) Vomiting (TWH85-CL R11.10, Discharge, Medical) Plan Condition: Improved, Stable. Disposition: Discharged: to home. Patient was given the following educational materials: Heartburn, Vomiting, Adult, Vomiting, Adult, Heartburn. Follow up with: KO FREEMAN Within 3 to 5 days. Counseled: Patient, Regarding diagnosis, Regarding diagnostic results, Regarding treatment plan, Patient indicated understanding of instructions. [Electronically Signed on: 08/16/2019 21:12 EST] Cyrus Resendez MD [Verified on: 08/16/2019 21:12 EST] Cyrus Resendez MD [facility] ED Note - Physician Patient: KELI ESTRADA Age: 19 years Sex: FEMALE : 2000 Associated Diagnoses: None Author: Fernando Quiroz DO Basic Information Time seen: Date & time 08/16/2019 19:39:00. History source: Patient. Arrival mode: Private vehicle, walking. Additional information: Chief Complaint from Nursing Triage Note : Chief Complaint 08/16/2019 18:57 EST Chief Complaint patient presents to the ER with c/o vomiting and fever . History of Present Illness The patient presents with This patient presents to the emergency room for evaluation and treatment of epigastric discomfort, left upper, associated with vomiting this morning, she has had this before, as she has a history of reflux, she just states is a little bit worse today, no diarrhea, no urinary symptoms, taking fluids p.o., she states that normally this gets better after Zofran, she has Zofran at home for chronic nausea, but today her appetite did not return after her Zofran and that is why she came here to the emergency room. She is in general good health, but takes medications for reflux. She denies previous abdominal surgeries: She also is not she believes, she does not have a history of ulcers, she denies smoking, denies diabetes, denies cardiac problems, states she is employed, she works at her [employer], she smokes occasionally, she rarely drinks, she states that Dr. Freeman is her doctor, she did not see Dr. Clayton today. She denies any upper respiratory illnesses, states she did not have an influenza vaccine this year, states there is nobody sick around her. She is single, she states that she lost her dog today, 14 years, vehicle arrival. On exam, very nice lady, seen in room #9, her head is normocephalic, lungs are clear, heart rate and rhythm is regular murmur, her abdomen is soft she has some vague discomfort in the left upper quadrant, very big bowel sounds are normal there is no tenderness otherwise, she is overweight, no offense, extremities are nonswollen nontender, skin is warm and dry. Neurologic exam is symmetric and appropriate, psychiatric evaluation is appropriate. She is not diaphoretic.. Health Status Allergies: Allergic Reactions (Selected) Severity Not Documented Bactrim- No reactions were documented. CefTRIAXone- No reactions were documented. Tobramycin- No reactions were documented.. Medications: (Selected) Documented Medications Documented Lupron: 1 mg, SubQ, q24hr (int), 0 Refill(s) Mirena 52 mg intrauterine device: 52 mg = 1 EA, Intrauteral, Once, for 1 doses, 1 EA, 0 Refill(s) Protonix 40 mg oral delayed release tablet: 40 mg = 1 tab(s), PO, Daily, 0 Refill(s) Zofran 4 mg oral tablet: 4 mg = 1 tab(s), PO, q8hr (int), 0 Refill(s) ZyrTEC: Daily, 0 Refill(s) drospirenone-estradio l: PO, Daily, 0 Refill(s). Past Medical/ Family/ Social History Medical history: No active or resolved past medical history items have been selected or recorded.. Surgical history: No active procedure history items have been selected or recorded.. Family history: No family history items have been selected or recorded.. Social history: Social & Psychosocial Habits Tobacco 08/16/2019 Smoking tobacco use: 10 or more cigarettes (1/ Electronic Cigarette/Vaping 08/16/2019 Electronic Cigarette Use: Never . Problem list: No qualifying data available . Physical Examination Vital Signs Vital Signs 08/16/2019 18:57 EST Temperature Oral 37.5 DegC HI Peripheral Pulse Rate 78 bpm Respiratory Rate 18 br/min Systolic Blood Pressure 127 mmHg Diastolic Blood Pressure 99 mmHg HI SpO2 98 % Oxygen Therapy Room air . Measurements 08/16/2019 19:13 EST Weight Dosing 122.500 kg 08/16/2019 19:13 EST Height/Length Dosing 168.000 cm 08/16/2019 18:57 EST Height/Length Estimated 168.000 cm Weight Estimated 122.500 kg . Medical Decision Making Orders Launch Orders Laboratory: Influenza A&B Rapid (Order): Swab, 08/16/2019 19:56 EST, Stat collect, Nurse collect Influenza A&B Rapid (Order): Swab, 08/16/2019 19:55 EST, Stat collect, Nurse collect Lipase Level (Order): Blood, Stat collect, 08/16/2019 19:55 EST, Lab Collect CMP Standard (Order): Blood, Stat collect, 08/16/2019 19:55 EST, Lab Collect CBC w/ Auto Diff (Order): Blood, Stat collect, 08/16/2019 19:55 EST, Lab Collect Pharmacy: GI Cocktail (Order): 1 EA, PO, Once. Impression and Plan Plan Disposition: Patient care transitioned to: Time: 08/16/2019 20:01:00, Cyrus Resendez MD. Counseled: Patient, Regarding diagnosis, Regarding diagnostic results, Regarding treatment plan, Regarding prescription, Patient indicated understanding of instructions. [Electronically Signed on: 08/16/2019 20:02 EST] Fernando Quiroz DO [Verified on: 08/16/2019 20:02 EST] Fernando Quiroz DO [facility] ED Note-Nursingon 08-16-2019 ED Note-Nursing Patient came home from work at 0520 this morning and broke out into a sweat and laid down in bed. She fell asleep and when she woke up, 20 minutes later, she noted she had vomited. This was the patient's only episode of vomiting. Patient says she has been very weak today and has no appetite. Patient reports nausea when taking in fluids. No fever. 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 Patient is A/O X4 and placed in room 9. [facility] ED Patient Education Noteon 08-16-2019 ED Patient Education Note Education Materials Gastroenterology Vomiting, Adult Vomiting occurs when stomach contents are thrown up and out of the mouth. Many people notice nausea before vomiting. Vomiting can make you feel weak and cause you to become dehydrated. Dehydration can make you feel tired and thirsty, cause you to have a dry mouth, and decrease how often you urinate. Older adults and people who have other diseases or a weak body defense system (immune system) are at higher risk for dehydration. It is important to treat vomiting as told by your health care provider. Follow these instructions at home: Eating and drinking Follow these recommendations as told by your health care provider: ? Take an oral rehydration solution (ORS). This is a drink that is sold at pharmacies and retail stores. ? Eat bland, kvsz-wx-gszutw foods in small amounts as you are able. These foods include bananas, applesauce, rice, lean meats, toast, and crackers. ? Drink clear fluids slowly and in small amounts as you are able. Clear fluids include water, ice chips, low-calorie sports drinks, and fruit juice that has water added (diluted fruit juice). ? Avoid drinking fluids that contain a lot of sugar or caffeine, such as energy drinks, sports drinks, and soda. ? Avoid alcohol. ? Avoid spicy or fatty foods. General instructions ? Wash your hands often using soap and water. If soap and water are not available, use hand injection molding technician. Make sure that everyone in your household washes their hands frequently. ? Take exhn-zyr-qnqewjn and prescription medicines only as told by your health care provider. ? Rest at home while you recover. ? Watch your condition for any changes. ? Keep all follow-up visits as told by your health care provider. This is important. Contact a health care provider if: ? Your vomiting gets worse. ? You have new symptoms. ? You have a fever. ? You cannot drink fluids without vomiting. ? You feel light-headed or dizzy. ? You have a headache. ? You have muscle cramps. ? You have a rash. ? You have pain while urinating. Get help right away if: ? You have pain in your chest, neck, arm, or jaw. ? You feel extremely weak or you faint. ? You have persistent vomiting. ? You have vomit that is bright red or looks like black coffee grounds. ? You have stools that are bloody or black, or stools that look like tar. ? You have a severe headache, a stiff neck, or both. ? You have severe pain, cramping, or bloating in your abdomen. ? You have trouble breathing or you are breathing very quickly. ? Your heart is beating very quickly. ? Your skin feels cold and clammy. ? You feel confused. ? You have signs of dehydration, such as: ? Dark urine, very little urine, or no urine. ? Cracked lips. ? Dry mouth. ? Sunken eyes. ? Sleepiness. ? Weakness. These symptoms may represent a serious problem that is an emergency. Do not wait to see if the symptoms will go away. Get medical help right away. Call your local emergency services (911 in the [place] Do not drive yourself to the hospital. Summary ? Vomiting occurs when stomach contents are thrown up and out of the mouth. Vomiting can cause you to become dehydrated. Older adults and people who have other diseases or a weak immune system are at higher risk for dehydration. ? It is important to treat vomiting as told by your health care provider. Follow your health care provider's instructions about eating and drinking. ? Wash your hands often using soap and water. If soap and water are not available, use hand injection molding technician. Make sure that everyone in your household washes their hands frequently. ? Watch your condition for any changes and for signs of dehydration. ? Keep all follow-up visits as told by your health care provider. This is important. This information is not intended to replace advice given to you by your health care provider. Make sure you discuss any questions you have with your health care provider. Document Released: 06/26/2016 Document Revised: 11/08/2018 Document Reviewed: 11/08/2018 [employer] Interactive Patient Education ? 2019 [employer] Heartburn Heartburn is a type of pain or discomfort that can happen in the throat or chest. It is often described as a burning pain. It may also cause a bad, acid-like taste in the mouth. Heartburn may feel worse when you lie down or bend over, and it is often worse at night. Heartburn may be caused by stomach contents that move back up into the esophagus (reflux). Follow these instructions at home: Eating and drinking ? Avoid certain foods and drinks as told by your health care provider. This may include: ? Coffee and tea (with or without caffeine). ? Drinks that contain alcohol. ? Energy drinks and sports drinks. ? Carbonated drinks or sodas. ? Chocolate and cocoa. ? Peppermint and mint flavorings. ? Garlic and onions. ? Horseradish. ? Spicy and acidic foods, including peppers, chili powder, fraire powder, vinegar, hot sauces, and barbecue sauce. ? [place] fruit juices and citrus fruits, such as oranges, jorge, and limes. ? Tomato-based foods, such as red sauce, chili, salsa, and pizza with red sauce. ? Fried and fatty foods, such as donuts, [place] fries, potato chips, and high-fat dressings. ? High-fat meats, such as hot dogs and fatty cuts of red and white meats, such as rib eye steak, sausage, ham, and ramírez. ? High-fat dairy items, such as whole milk, butter, and cream cheese. ? Eat small, frequent meals instead of large meals. ? Avoid drinking large amounts of liquid with your meals. ? Avoid eating meals during the 2?3 hours before bedtime. ? Avoid lying down right after you eat. ? Do not exercise right after you eat. Lifestyle ? If you are overweight, reduce your weight to an amount that is healthy for you. Ask your health care provider for guidance about a safe weight loss goal. ? Do not use any products that contain nicotine or tobacco, such as cigarettes, e-cigarettes, and chewing tobacco. These can make your symptoms worse. If you need help quitting, ask your health care provider. ? Wear loose-fitting clothing. Do not wear anything tight around your waist that causes pressure on your abdomen. ? Raise (elevate) the head of your bed about 6 inches (15 cm) when you sleep. ? Try to reduce your stress, such as with yoga or meditation. If you need help reducing stress, ask your health care provider. General instructions ? Pay attention to any changes in your symptoms. ? Take bzbc-uon-enjbaek and prescription medicines only as told by your health care provider. ? Do not take aspirin, ibuprofen, or other NSAIDs unless your health care provider told you to do so. ? Stop medicines only as told by your health care provider. If you stop taking some medicines too quickly, your symptoms may get worse. ? Keep all follow-up visits as told by your health care provider. This is important. Contact a health care provider if: ? You have new symptoms. ? You have unexplained weight loss. ? You have difficulty swallowing, or it hurts to swallow. ? You have wheezing or a persistent cough. ? Your symptoms do not improve with treatment. ? You have frequent heartburn for more than 2 weeks. Get help right away if: ? You have pain in your arms, neck, jaw, teeth, or back. ? You feel sweaty, dizzy, or light-headed. ? You have chest pain or shortness of breath. ? You vomit and your vomit looks like blood or coffee grounds. ? Your stool is bloody or black. These symptoms may represent a serious problem that is an emergency. Do not wait to see if the symptoms will go away. Get medical help right away. Call your local emergency services (911 in the [place] Do not drive yourself to the hospital. Summary ? Heartburn is a type of pain or discomfort that can happen in the throat or chest. It is often described as a burning pain. It may also cause a bad, acid-like taste in the mouth. ? Avoid certain foods and drinks as told by your health care provider. ? Take xemw-yyc-rceofjh and prescription medicines only as told by your health care provider. Do not take aspirin, ibuprofen, or other NSAIDs unless your health care provider told you to do so. ? Contact a health care provider if your symptoms do not improve or they get worse. This information is not intended to replace advice given to you by your health care provider. Make sure you discuss any questions you have with your health care provider. Document Released: 10/17/2009 Document Revised: 10/31/2018 Document Reviewed: 10/31/2018 [employer] Interactive Patient Education ? 2019 [employer] Normal [facility] ED Patient Summaryon 020 ED Patient Summary [facility] - Emergency Department [address] [place] [address] PATIENT DISCHARGE INSTRUCTIONS Patient Information Name: KELI ESTRADA Age: 19 Years Date of : 2000 Reason For Visit: Medical problem - minor; Vomiting; VOMITING, WEAKNESS Arrival Time: 08/16/2019 18:56:00 Primary Care Physician: KO FREEMAN Attending Physician: Fernando Quiroz DO Comment: Visit Diagnosis: Diagnoses This Visit Heartburn symptom (R12) Medical problem - minor ([id number]) Vomiting (R11.10) Vomiting ([id number]) Prescription Information: If you have been given a prescription for narcotics, seek immediate medical attention if you have any difficulty breathing or any sudden status changes such as confusion and sleepiness. If you or anyone you know is experiencing suicidal thoughts, mental health, alcohol and/or drug addiction problems; contact the [facility] 04/01 Crisis Hotline -text 4HMOU fz 144810. If you received any narcotics, sedation, or any other medication that causes drowsiness for the next 24 hours, unless otherwise directed: ? Do not drive a car. ? Do not operate machinery such as power tools, lawn mowers, drills, sewing machines, or stoves ? Avoid alcoholic beverages and drugs for allergies, nerves, or sleep ? Do not make important personal or business decisions or sign any legal documents With: Address: When: KO FREEMAN [address] [place] [address] [place] [address] Business (1) Within 3 to 5 days Medication Information: The exam and treatment you received today in the [facility] Emergency Department were for an urgent problem and are not intended as complete care. It is important for you to follow up with a doctor, nurse practitioner, or physician?s assistant director of admissions for ongoing care. If your symptoms become worse or you do not improve as expected and you are unable to reach your usual health care provider, you should return to the Emergency Department, we are available 24 hours a day. For those patients who have received Radiology results, the interpretation of your X-ray as given to you by our Emergency Department physician is only a preliminary report. The Radiologist will review your films and if there is a change in the diagnosis you will be notified by phone. Please make sure you have provided a working phone number so we can reach you if necessary. In the event that you had a lab culture while you were a patient in the Emergency Department, you will be notified by phone if there is a need to change your antibiotic. Please make sure you have provided a working phone number so we can reach you if necessary. [facility] Emergency Department has provided you with a complete list of medications post discharge. Please inform your tin tie machine operator automatic/provider of your visit and for further instruction on these medications. Any specific questions regarding your chronic medications and dosages should be discussed with your primary care physician(s) and/or pharmacist. Medications to Continue That Have Not Changed Other Medications cetirizine (ZyrTEC) every day. drospirenone-estradio l Oral every day. leuprolide (Lupron) 1 Milligram Subcutaneous every 24 hours. levonorgestrel (Mirena 52 mg intrauterine device) 1 Each Intrauteral once for 1 Doses. ondansetron (Zofran 4 mg oral tablet) 1 tab(s) Oral every 8 hours. pantoprazole (Protonix 40 mg oral delayed release tablet) 1 tab(s) Oral every day. Visit Information Allergies: Substance Reaction Symptoms Type Comments Bactrim Drug cefTRIAXone Drug tobramycin Drug Vital Signs: Vitals and Measurements this Visit (last charted value for your 08/16/2019 visit) Vital Signs This Visit Temperature Oral: 37.5 DegC Peripheral Pulse Rate: 78 bpm Respiratory Rate: 18 br/min Systolic Blood Pressure: 127 mmHg Diastolic Blood Pressure: 99 mmHg SpO2: 98 % Oxygen Therapy: Room air Measurements This Visit Height/Length Dosin.000 cm Height/Length Estimated: 168.000 cm Weight Dosin.500 kg Weight Estimated: 122.500 kg Problems List: Problem Onset Comments No Problems found Patient Education Vomiting, Adult Vomiting occurs when stomach contents are thrown up and out of the mouth. Many people notice nausea before vomiting. Vomiting can make you feel weak and cause you to become dehydrated. Dehydration can make you feel tired and thirsty, cause you to have a dry mouth, and decrease how often you urinate. Older adults and people who have other diseases or a weak body defense system (immune system) are at higher risk for dehydration. It is important to treat vomiting as told by your health care provider. Follow these instructions at home: Eating and drinking Follow these recommendations as told by your health care provider: ? Take an oral rehydration solution (ORS). This is a drink that is sold at pharmacies and retail stores. ? Eat bland, ycoy-xj-mrvlan foods in small amounts as you are able. These foods include bananas, applesauce, rice, lean meats, toast, and crackers. ? Drink clear fluids slowly and in small amounts as you are able. Clear fluids include water, ice chips, low-calorie sports drinks, and fruit juice that has water added (diluted fruit juice). ? Avoid drinking fluids that contain a lot of sugar or caffeine, such as energy drinks, sports drinks, and soda. ? Avoid alcohol. ? Avoid spicy or fatty foods. General instructions ? Wash your hands often using soap and water. If soap and water are not available, use hand injection molding technician. Make sure that everyone in your household washes their hands frequently. ? Take zury-eva-jqqzfil and prescription medicines only as told by your health care provider. ? Rest at home while you recover. ? Watch your condition for any changes. ? Keep all follow-up visits as told by your health care provider. This is important. Contact a health care provider if: ? Your vomiting gets worse. ? You have new symptoms. ? You have a fever. ? You cannot drink fluids without vomiting. ? You feel light-headed or dizzy. ? You have a headache. ? You have muscle cramps. ? You have a rash. ? You have pain while urinating. Get help right away if: ? You have pain in your chest, neck, arm, or jaw. ? You feel extremely weak or you faint. ? You have persistent vomiting. ? You have vomit that is bright red or looks like black coffee grounds. ? You have stools that are bloody or black, or stools that look like tar. ? You have a severe headache, a stiff neck, or both. ? You have severe pain, cramping, or bloating in your abdomen. ? You have trouble breathing or you are breathing very quickly. ? Your heart is beating very quickly. ? Your skin feels cold and clammy. ? You feel confused. ? You have signs of dehydration, such as: ? Dark urine, very little urine, or no urine. ? Cracked lips. ? Dry mouth. ? Sunken eyes. ? Sleepiness. ? Weakness. These symptoms may represent a serious problem that is an emergency. Do not wait to see if the symptoms will go away. Get medical help right away. Call your local emergency services (911 in the [place] Do not drive yourself to the hospital. Summary ? Vomiting occurs when stomach contents are thrown up and out of the mouth. Vomiting can cause you to become dehydrated. Older adults and people who have other diseases or a weak immune system are at higher risk for dehydration. ? It is important to treat vomiting as told by your health care provider. Follow your health care provider's instructions about eating and drinking. ? Wash your hands often using soap and water. If soap and water are not available, use hand injection molding technician. Make sure that everyone in your household washes their hands frequently. ? Watch your condition for any changes and for signs of dehydration. ? Keep all follow-up visits as told by your health care provider. This is important. This information is not intended to replace advice given to you by your health care provider. Make sure you discuss any questions you have with your health care provider. Document Released: 06/26/2016 Document Revised: 11/08/2018 Document Reviewed: 11/08/2018 [employer] Interactive Patient Education ? 2019 [employer] Heartburn Heartburn is a type of pain or discomfort that can happen in the throat or chest. It is often described as a burning pain. It may also cause a bad, acid-like taste in the mouth. Heartburn may feel worse when you lie down or bend over, and it is often worse at night. Heartburn may be caused by stomach contents that move back up into the esophagus (reflux). Follow these instructions at home: Eating and drinking ? Avoid certain foods and drinks as told by your health care provider. This may include: ? Coffee and tea (with or without caffeine). ? Drinks that contain alcohol. ? Energy drinks and sports drinks. ? Carbonated drinks or sodas. ? Chocolate and cocoa. ? Peppermint and mint flavorings. ? Garlic and onions. ? Horseradish. ? Spicy and acidic foods, including peppers, chili powder, fraire powder, vinegar, hot sauces, and barbecue sauce. ? [place] fruit juices and citrus fruits, such as oranges, jorge, and limes. ? Tomato-based foods, such as red sauce, chili, salsa, and pizza with red sauce. ? Fried and fatty foods, such as donuts, [place] fries, potato chips, and high-fat dressings. ? High-fat meats, such as hot dogs and fatty cuts of red and white meats, such as rib eye steak, sausage, ham, and ramírez. ? High-fat dairy items, such as whole milk, butter, and cream cheese. ? Eat small, frequent meals instead of large meals. ? Avoid drinking large amounts of liquid with your meals. ? Avoid eating meals during the 2?3 hours before bedtime. ? Avoid lying down right after you eat. ? Do not exercise right after you eat. Lifestyle ? If you are overweight, reduce your weight to an amount that is healthy for you. Ask your health care provider for guidance about a safe weight loss goal. ? Do not use any products that contain nicotine or tobacco, such as cigarettes, e-cigarettes, and chewing tobacco. These can make your symptoms worse. If you need help quitting, ask your health care provider. ? Wear loose-fitting clothing. Do not wear anything tight around your waist that causes pressure on your abdomen. ? Raise (elevate) the head of your bed about 6 inches (15 cm) when you sleep. ? Try to reduce your stress, such as with yoga or meditation. If you need help reducing stress, ask your health care provider. General instructions ? Pay attention to any changes in your symptoms. ? Take ruto-dqb-znlbxho and prescription medicines only as told by your health care provider. ? Do not take aspirin, ibuprofen, or other NSAIDs unless your health care provider told you to do so. ? Stop medicines only as told by your health care provider. If you stop taking some medicines too quickly, your symptoms may get worse. ? Keep all follow-up visits as told by your health care provider. This is important. Contact a health care provider if: ? You have new symptoms. ? You have unexplained weight loss. ? You have difficulty swallowing, or it hurts to swallow. ? You have wheezing or a persistent cough. ? Your symptoms do not improve with treatment. ? You have frequent heartburn for more than 2 weeks. Get help right away if: ? You have pain in your arms, neck, jaw, teeth, or back. ? You feel sweaty, dizzy, or light-headed. ? You have chest pain or shortness of breath. ? You vomit and your vomit looks like blood or coffee grounds. ? Your stool is bloody or black. These symptoms may represent a serious problem that is an emergency. Do not wait to see if the symptoms will go away. Get medical help right away. Call your local emergency services (911 in the [place] Do not drive yourself to the hospital. Summary ? Heartburn is a type of pain or discomfort that can happen in the throat or chest. It is often described as a burning pain. It may also cause a bad, acid-like taste in the mouth. ? Avoid certain foods and drinks as told by your health care provider. ? Take cddm-ars-korncon and prescription medicines only as told by your health care provider. Do not take aspirin, ibuprofen, or other NSAIDs unless your health care provider told you to do so. ? Contact a health care provider if your symptoms do not improve or they get worse. This information is not intended to replace advice given to you by your health care provider. Make sure you discuss any questions you have with your health care provider. Document Released: 10/17/2009 Document Revised: 10/31/2018 Document Reviewed: 10/31/2018 [employer] Patient Education ? 2019 [employer] Viruses or Bacteria What?s got you sick? Antibiotics only treat bacterial infections. Viral illnesses cannot be treated with antibiotics. When an antibiotic is not prescribed, ask your healthcare professional for tips on how to relieve symptoms and feel better. Usual Cause Illness Viruses Bacteria Antibiotic Needed Cold/Runny Nose NO Bronchitis/Chest Cold (in otherwise healthy children and adults) NO Whooping Cough Yes Flu NO Strep Throat Yes Sore Throat (except strep) NO Fluid in the middle ear (otitis media with effusion) NO Urinary Tract Infection Yes Antibiotics Aren?t Always the Answer www.cdc.gov/getsmart GET SMART Know When Antibiotics Work [place]. Department of Health and Human Services Centers for Disease Control and Prevention February 2014 [facility] 08-16-2019 Tube Collected Yes [facility] Comment on above: Performed By: #### 1 [id number] #### [facility] (DEFAULT) [address] [place] [address] Influenza A&B Rapidon 2019 Influenza A Negative Normal Negative [facility] Comment on above: Performed By: #### 1 [id number] #### [facility] (DEFAULT) [address] [place] [address] Influenza B Negative Normal Negative [facility] Comment on above: Performed By: #### 1 [id number] #### [facility] (DEFAULT) [address] [place] [address] Internal QC OK? Pass Normal [facility] Comment on above: Performed By: #### 1 [id number] #### [facility] (DEFAULT) [address] [place] [address] Lipaseon 08-16-2019 Lipase Level 30.0 IU/L Normal 22.0-51.0 [facility] Comment on above: Performed By: #### 1 [id number] #### [facility] (DEFAULT) [address] [place] [id number] HISTORY PHYSICALon HISTORY PHYSICAL HNO ID: [id number] Author: Jacoby Reyes Service: Pain Management Author Type: Physician Type: HANDP Filed: 05/03/2019 9:24 AM Note Text: UPDATED HISTORY AND PHYSICAL EXAMINATION SERVICE DATE: 05/03/2019 SERVICE TIME: 9:24 AM PHYSICAL EXAM MUST BE COMPLETED ON ADMISSION The History and Physical (completed in the past 30 days) has been reviewed and the patient has been examined. The contents accurately reflect the patient's condition with the following additions or revisions since the HANDP was completed. Examination indicates no changes. This HANDP can be found in the Electronic Medical Record dated May 03, 2019 . SIGNATURE: Jacoby Reyes MD PATIENT NAME: Keli Estrada DATE: May 03, 2019 TIME: 9:24 AM PAGER:[id number] [facility] HISTORY PHYSICAL HNO ID: [id number] Author: Gloria Mckeon (Pa) Service: ? Author Type: Physician Bottom Ironer Type: HANDP Filed: 05/03/2019 9:16 AM Note Text: PROCEDURAL SEDATION HISTORY AND PHYSICAL EXAM SERVICE DATE: 05/03/2019 SERVICE TIME: 9:08 AM Subjective HPI: This is a 18 year old female who presents with left pelvic pain and lower back pain that is stabbing and tightening. 01/21 today. PAST ANESTHESIA HISTORY: No history of adverse event PAST MEDICAL HISTORY Diagnosis Date - Anxiety - Asthma - Bipolar 1 disorder (HCC) - Depression - Insomnia - PCOS (polycystic ovarian syndrome) - Pelvic pain - Seizure (HCC) - Seizure disorder (HCC) - Social anxiety disorder PAST SURGICAL HISTORY Procedure Laterality Date - PAST SURGICAL HISTORY OF laparoscopy - PAST SURGICAL HISTORY OF 2017 tonsil and adenoids removed - PAST SURGICAL HISTORY OF wisdom teeth Prior to Admission medications as of 05/03/19 0911 Medication Sig Last Dose Taking Leuprolide Acetate, 3 Month, (LUPRON DEPOT, 3 MONTH,) 11.25 mg injection Inject 11.25 mg intramuscularly every 3 months. Yes albuterol HFA (PROVENTIL HFA, VENTOLIN HFA) 90 mcg/actuation inhaler INHALE 2 PUFFS QID PRN. START WITH 2 PUFFS 30 MINUTES BEFORE PRACTICE 05/02/2019 at Unknown time Yes DULERA 100-5 mcg/actuation inhaler INHALE 2 PUFFS PO INTO THE LUNGS BID 05/02/2019 at Unknown time Yes Cetirizine 10 mg cap Take 1 Tablespoonful by mouth. Past Week at Unknown time Yes ondansetron orally disintegrating (ZOFRAN ODT) 4 mg disintegrating tablet DISSOLVE 1 T ON THE TONGUE QID PRN amitriptyline (ELAVIL) 10 mg tablet Take 1 tablet by mouth daily at bedtime. diclofenac, EC, (VOLTAREN) 75 mg EC tablet Take 1 tablet by mouth twice daily with meals. tiZANidine (ZANAFLEX) 4 mg tablet Take 0.5-1 tablets by mouth daily at bedtime. Patient not taking: Reported on 03/21/2019 spironolactone (ALDACTONE) 50 mg tablet Take 1 tablet by mouth once daily. Patient not taking: Reported on 02/23/2018 levETIRAcetam (KEPPRA) 500 mg tablet Take 500 mg by mouth twice daily. ALLERGIES Allergen Reactions - Bactrim [Sulfametho* Hives, Swelling - Bioxin [Clarithromy* Rash, Swelling, Shortness of Breath - Seasonal Allergies Itching Objective PHYSICAL EXAM: The remainder of the physical exam is noncontributory. AIRWAY: Airway Visualization of Uvula: Yes Mouth opening greater than 2 fingerbreadths: Yes Neck Full Range of Motion: Yes LUNGS: Lungs clear to auscultation, Good diaphragmatic excursion CARDIAC: Normal S1 and S2; no rubs, murmurs, or gallops Assessment/Plan ASA Class: ASA Class:: Patient with severe systemic disease Active Problems: * No active hospital problems. * Resolved Problems: * No resolved hospital problems. 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 Lungs CTAB but still using inhaler a few times a day. Ok for procedure. SEDATION GOAL: Moderate SIGNATURE: Gloria Mckeon PA-C PATIENT NAME: Keli Estrada DATE: May 03, 2019 TIME: 9:08 AM PAGER: [facility] OPERATIVE NOon 05-03-2019 OPERATIVE NO HNO ID: [id number] Author: Jacoby Reyes Service: Pain Management Author Type: Physician Type: Operative Report Filed: 05/03/2019 9:43 AM Note Text: Patient Name Medical Record # Keli Estrada [id number] Date of : 2000 Admit Date: May 03, 2019 Sex / Age: female / 18 year old Discharge Date: May 03, 2019 Attending Physician: Jacoby Reyes MD OPERATIVE REPORT DATE OF PROCEDURE: May 03, 2019 LOG ID: [id number] Surgery/Procedure Date: 05/03/2019 Incision/Procedure Start Time: 9:35 AM Incision Close/Procedure End Time: 9:41 AM Surgeon(s)/Procedural ist(s) and Bottom Ironer(s): Surgeon(s) and Role: * Jacoby Reyes - Primary No Additional Staff PREOPERATIVE DIAGNOSIS: Pudendal Neuralgia POSTOPERATIVE DIAGNOSIS: Same. NAME OF OPERATION: Bilateral pudendal nerve block under fluoroscopic guidance. ANESTHESIA: Moderate sedation and local anesthesia using: Versed 2 mg IV INFORMED CONSENT: Risks, benefits and alternatives were discussed with the patient in detail. She verbalized understanding and agreed to proceed. PROCEDURE: The patient was brought to fluoroscopy OR suite. Intravenous access was obtained prior to the procedure. The patient positioned prone on the fluoroscopy table. Continuous hemodynamic monitoring was initiated including blood pressure, EKG and pulse oximetry. Intravenous sedation was administered incrementally to allow the patient to remain comfortable and conversant throughout the procedure.. The area of the Bilateral buttock was prepped well with povidone-iodine x 3 and draped into a sterile field. The skin overlying the respective injection site was anesthetized using a total of 3 cc of lidocaine 0.5 %. A 22 guage 3.5 inch Sprottel needle was slowly advanced towards the Bilateral ischial spine under fluoroscopic guidance. The needle position was confirmed using oblique, AP and lateral fluoroscopic imaging. Negative aspiration was confirmed. 0.5 mL of Omnipaque contrast. was injected confirming contrast spread. A total of 2 cc of Bupivacaine 0.25% mixed with 20 mg of Triamcinolone was injected at each side.The needle was then removed and bleeding was nil. Sterile dressing was applied and the patient was brought to the Recovery Room in stable condition. Complications: None. Estimated Blood Loss: None. Drains: None. Implantable Device: None. Specimen: None. IJacoby MD, performed the entire procedure. ASSESSMENT AND PLAN: Keli Estrada is status post Bilateral pudendal nerve block. She is to return to clinic in 4 weeks for office visit follow up.. Postoperative instructions were given. She voiced understanding, and she was discharged to home in stable condition. Jacoby Reyes MD Pain Management May 03, 2019 [facility] HOSPon 03-21-2019 HOSP Patient:Shanique Estrada MRN: Height:5' 4 (1.626 m) Weight:No patient weight recorded within the last 30 days. Outpatient Medications as of 05/03/19: Leuprolide Acetate, 3 Month, (LUPRON DEPOT, 3 MONTH,) 11.25 mg injection albuterol HFA (PROVENTIL HFA, VENTOLIN HFA) 90 mcg/actuation inhaler ondansetron orally disintegrating (ZOFRAN ODT) 4 mg disintegrating tablet DULERA 100-5 mcg/actuation inhaler amitriptyline (ELAVIL) 10 mg tablet diclofenac, EC, (VOLTAREN) 75 mg EC tablet tiZANidine (ZANAFLEX) 4 mg tablet spironolactone (ALDACTONE) 50 mg tablet Cetirizine 10 mg cap levETIRAcetam (KEPPRA) 500 mg tablet Admission/Clinic Administered Medications as of 05/03/19: Patient has no admission medications. 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] Allergies: Bactrim [Sulfamethoxazole-Tri methoprim] Bioxin [Clarithromycin] Seasonal Allergies Date Verified: 05/03/19 Lab Values No results within the last 30 days for the following basenames: K,HCT No progress notes entered within the past 30 days Normal [facility] Encounters Encounter Date Encounter Type Care Provider Facility Start: 09-07-2022 End: 09-07-2022 ambulatory Deidra Rees Facility:[facility] Start: 09-07-2022 End: 09-07-2022 ambulatory MD Ko Freeman Work Phone: [facility] Work Phone: Start: 09-07-2022 End: 09-07-2022 Departed Referred MD Ko Freeman Work Phone: [facility] [place] Work Phone: Start: 09-03-2022 End: 09-03-[address] KO FREEMAN . Facility: Start: 06-10-2022 End: 06-10-2022 ambulatory [facility] GODFREY Facility:[facility] Start: 03-05-[address] KO FREEMAN . Facili ty:[facility] Start: 02-25-2022 End: 02-25-[address] KO FREEMAN . Facility:[facility] Payers Date Payer Category Payer Self-pay [id number] 2022 Medicaid [id number] 2000 Unknown [id number] 2000 Unknown [id number] 2000 Unknown [id number] 2000 Unknown [id number] 1959 Unknown [id number] Private Health Insurance [facility] [id number] Unknown [place] [id number] Unknown [id number] Social History Date Type Detail Facility Tobacco smoking stat [facility] Unknown if ever smoked [facility] Work Phone: Start: 2000 Sex Assigned At Female [facility] Progress note 02-04-2021 Note Date & Type Note Facility 02-04-2021 Note HNO ID: [id number] Author: Alfie Card APRN.[employer]RE[employer]IC[employer] Service: ? Author Type: Nurse Practitioner Type: Progress Notes Filed: 03/03/2021 10:53 PM Note Text: CHRONIC PELVIC PAIN FOLLOW UP VISIT Keli Estrada is a 20 year old female who presents for continued management of chronic pelvic pain. HISTORY SINCE LAST VISIT: pt states most of her pain is LLQ pain also has salpingitis isthmica nodosa Intensity of pain: mild and gets severe at times Average Pain level: 5 on a scale of 0-10 Emergency room visits for pain since last visit: yes many times Level of physical activity and mobility: same, some days cannot function Quality of sleep: at times it wakes her up Mood: ok Side effects of medications for pain: none LLQ feels like it's over left ovary then turns into pressure and burning. Then radiates down right side and down legs. When severe and intense has to go to ED. Lupron improved pain enough that had good quality of life. On for 6 months 08/03 till mid 2019. OCP no improvement. Kyleena for a year now - still bleeding and spotting. Gets period less frequently or just gets no period at all. Nothing for abnormal hair growth. 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 Not on it now. 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 Never seen endocrinology Pudendal injection helped with tailbone pain. Has not been back to see Dr Reyes. Had a lot of relief for quite some time. Pelvic floor physical therapy for 1-2 months. No relief. Made it worse. Made better with Ibuprofen. Ingenio - sometimes pain afterwards. Makes it feel like she's on fire. Urinary - no symptoms Pain Scales Not completed Notes from last visit 02/22/18 Dr Edi MD: PLAN PFPT ortho referral Consider TPI Recommend menstrual suppression, discussed mirena or kyleena with cytotec ? Heal Pelvic Pain By Isabel Wade ? Follow up in 4-6 weeks (consider virtual visits) ? ? MDM- Suspect that PFTM developed after full leg cast for months due to injury falling off a tractor ? Faisal Daley MD SUBJECTIVE ROS - See HPI OBJECTIVE BP 121/69 Ht 5' 4 (1.63m) Wt 198 lb (89.8kg) LMP 10/13/2015 BMI 33.97 kg/(m2). PHYSICAL EXAMINATION: Physical Exam - deferred ASSESSMENT Encounter Diagnosis ICD-10-CM 1. 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 High-tone pelvic floor dysfunction N94.89 cyclobenzaprine (FLEXERIL) 5 mg tablet baclofen vaginal suppository 10 mg (CPD) 3. Myofascial muscle pain M79.18 cyclobenzaprine (FLEXERIL) 5 mg tablet baclofen vaginal suppository 10 mg (CPD) 4. Abnormal facial hair L67.8 CONSULT TO INFERTILITY CLINIC 5. 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 CONSULT TO PAIN MGT cyclobenzaprine (FLEXERIL) 5 mg tablet baclofen vaginal suppository 10 mg (CPD) PLAN Consult to infertility Consult to pain management to see Dr Jason whalen Flexeril at bedtime Baclofen suppository Follow up as needed Alfie Card APRN.CALVIN Medical Decision Making: Problems: Low: Stable chronic illness Data: Unique source(s) for external note(s) reviewed: 1 Risk: Low: Low risk from testing/treatment Moderate: Drug management Medical Decision Making Level: 3 - Low [facility] Evaluation note Note Date & Type Note Facility Evaluation note No assessment information availa [facility] Work Phone: Summary Purpose Family History No Family History Records FoundNo Family History Records FoundNo Family History Records FoundNo Family History Records FoundNo Family History Records Found Advance Directives No Advanced Directives Records Found Advance Directive Response Recorded Date/ Time Advance Directives No October 07, 2 018 10:19am Additional Source Comments INFORMATION SOURCE (unrecogn ized section and content) DATE CREATED AUTHOR 05/03/2019 [facility] DATE CREATED AUTHOR AUTHOR'S ORGANIZ ATION 01/05/2020 [facility] DATE CREATED AUTHOR AUTHOR'S ORGANIZ ATION 07/11/2021 [facility] DATE CREATED AUTHOR AUTHOR'S ORGANIZ ATION 09/06/2022 [facility] DATE CREATED AUTHOR AUTHOR'S ORGANIZ ATION 09/18/2022 [facility] Care Teams (unrecognized sec tion and content) Team Status: Active Member Role Status Dates Ko Freeman MD Primary Care Provider Active Team Status: Inactive Member Role Status Dates Ko Freeman MD Primary Care Provider Active Deidra Rees MD Attending Provider Active Goals (unrecognized section and content) Goals may be documented in a n alternate section FOR RECORDS PERTAINING TO PATIENTS WHO ARE OR HAVE BEEN ENROLLED IN A CHEMICAL DEPENDENCY/SUBSTANCEABUSE PROGRAM, SOME INFORMATION MAY BE OMITTED. This clinical summary was aggregated from multiple sources. Caution should be exercised in using it in the provision of clinical care. This summary normalizes information from multiple sources, and as a consequence, information in this document may materially change the coding, format and clinical context of patient data. In addition, data may be omitted in some cases. CLINICAL DECISIONS SHOULD BE BASED ON THE PRIMARY CLINICAL RECORDS. [email or web address] [facility]. provides no warranty or guarantee of the accuracy or completeness of information in this document.
[2023-07-09 16:08] LABS: Estimated Average Glucose 91 mg/dL; Glycohemoglobin A1C 4.8 % (4.5-6.2)
[2023-07-09 16:10] LABS: Basophils Percent Auto 0.6 % (0.2-2.0); Eosinophils Absolute Auto 0.4 10^3/uL (0.0-0.7); Eosinophils Percent Auto 6.5 % (0.9-7.0); Hematocrit 42.9 % (36.0-48.0); Hemoglobin 14.4 g/dL (12.0-16.0); Immature Granulocytes Abs Auto 0.02 10^3/uL (0.00-0.03); Immature Granulocytes Pct Auto 0.3 % (0.0-0.5); Lymphocytes Absolute Auto 1.6 10^3/uL (1.2-3.8); Mean Corpuscular HGB Conc 33.6 g/dL (29.9-35.2); Mean Corpuscular Volume 95.3 fL (81.0-99.0); Mean Platelet Volume 10.6 fL (9.5-13.5); Monocytes Absolute Auto 0.4 10^3/uL (0.3-0.8); Monocytes Percent Auto 5.3 % (1.7-12.0); Neutrophils Absolute Auto 4.2 10^3/uL (1.4-6.5); Neutrophils Percent Auto 63.3 % (43.0-75.0); Platelet Count 177 10^3/uL (150-450); Red Cell Distribution Width 12.2 % (11.0-15.0); White Blood Count 6.6 10^3/uL (4.0-11.0)
[2023-07-09 16:22] LABS: Alanine Aminotransferase 26 U/L (14-59); Albumin Globulin Ratio 1.2; Albumin Level 3.8 g/dL (3.4-5.0); Alkaline Phosphatase 48 U/L (46-116); Anion Gap 8.2; Aspartate Amino Transferase 13 U/L (15-37); BUN Creatinine Ratio 18.4; Bilirubin Total 0.5 mg/dL (0.2-1.0); Calcium 8.9 mg/dL (8.5-10.1); Carbon Dioxide 30.9 mmol/L (21.0-32.0); Chloride 106 mmol/L (98-107); Chol HDL Ratio 2.1; Cholesterol 158 mg/dL (<=200); Estimated GFR (African America >60 (>=60); Estimated GFR (Non-African Ame >60 (>=60); Free T3 2.49 pg/mL (2.18-3.98); Globulin 3.2 g/dL; Glucose 84 mg/dL (74-106); HDL Cholesterol 77 mg/dL (40-60); Potassium 4.1 mmol/L (3.5-5.1); Sodium 141 mmol/L (136-145); Thyroid Stimulating Hormone 1.476 uIU/mL (0.358-3.740); Triglycerides 28 mg/dL (<=150); VLDL CHOLESTEROL 5.6 mg/dL
[2023-07-11 13:07] LABS: Insulin 8.6 uIU/mL (2.6-24.9)
== END 2023-07-09 15:07 | disposition home or self-care (01) ==
PROVIDERS: Family Provider Obstetrics & Gynecology; PCP Family Medicine; Visit Provider Family Medicine
DX: Z00.00 Encounter for general adult medical examination without abnormal findings (principal); E78.5 Hyperlipidemia, unspecified; R73.09 Other abnormal glucose; D64.9 Anemia, unspecified; E55.9 Vitamin D deficiency, unspecified
CPT/HCPCS: 36415; 80053; 80061; 82306; 83036; 83525; 83540; 84436; 84443; 84481; 85025

== ENCOUNTER 2024-02-24 10:43 | Outpatient (OUT) | payer MEDICAID, SELFPAY ==
--- NOTE | 2024-02-24 10:50 | XR_ITS ---
The [address] [address] Patient Name: CARMENZA SLADE MRN: [id number] date: 2000 Sex: F Assigned Patient Location: [facility] Current Patient Location: Accession/Order Number: [id number] Exam Date: 02/24/2024 10:58 Report Date: 02/26/2024 06:08 At the request of: KO HOFFMAN Procedure: XR knee RT 3V PROCEDURE: XR knee RT 3V HISTORY: Internal Derangement Of Knee COMPARISON: None. FINDINGS: BONES:No fracture, acute abnormality, or significant arthropathy. SOFT TISSUES:No visible soft tissue swelling. EFFUSION:None visible. OTHER: Negative. XR/XR knee RT 3V IMPRESSION: 1. No acute bone abnormality. Electronically authenticated by: GRACE TRINH Date: 02/26/2024 06:08
--- OUTSIDE RECORDS SUMMARY | 2024-02-24 11:06 | XMS_ITS | CCD ---
Author Organization [facility] Care Team Providers Care Postal Sorting Officer Name Role Phone DALTON ., DR CONNELL Primary Care Unavailable HAY ., DR PINO Admitting Unavailable HAY ., DR PINO Attending Unavailable HAY ., DR PINO Consulting Unavailable NÉSTOR JOHNSTON Consulting Unavailable HOY ., DR CONNELL Admitting Unavailable HOY ., DR CONNELL Attending Unavailable HOY ., DR CONNELL Primary Care Unavailable HOY ., DR CONNELL Consulting Unavailable PRINTSaumya, DR GAY Consulting Unavailable NGOC GODFREY Admitting Unavailable NGOC GODFREY Attending Unavailable DALTON ., DR CONNELL Primary Care Unavailable NGOC GODFREY Consulting Unavailable HOY ., DR CONNELL Admitting Unavailable HOY ., DR CONNELL Attending Unavailable HOY ., DR CONNELL Primary Care Unavailable MD Ko Freeman Primary Care Provider [phone] MD Deidra Rees Attending Provider Deidra Rees Admitting Unavailable Deidra Rees Attending Unavailable Ko Freeman Primary Care Unavailable DEIDRA REES Attending Unavailable Allergies Allergy Classification Reported Allergen(s) Allergy Type Date of Onset Reaction(s) Facility (1 source) Amoxicillin Drug Allergy 0 [facility] Repository (1 source) Clarithromycin Drug Allergy 4 [facility] Rep[facility] (1 source) Phentolamine Drug Allergy 4 [facility] Rep[facility] (1 source) Sulfamethoxazole / Trimethoprim Drug Allergy 7 [facility] Repository (2 sources) Clarithromycin; Translations: [clarithromycin] Drug Allergy 8 [facility] (2 sources) Sulfamethoxazole; Translations: [sulfamethoxazole] Drug Allergy 8 [facility] (2 sources) Tobramycin; Translations: [tobramycin] Drug Allergy 8 [facility] (2 sources) Trimethoprim; Translations: [trimethoprim] Drug Allergy 8 [facility] Medications Current Medications Medication Drug Class(es) Dates [...] every four to six hours Hydrocodone-Acetami nophen ([place]) 5-325 mg tablet Discontinued 1 TAB PO EVERY 4-6 HOURS 10 01October 08, 2017 October 15, 2017 12:01am Problems Active Problems Problem Classification Problem Date Documented Date Episodic/Chronic Abdominal pain (1 source) Pelvic and perineal pain; Translations: [Pelvic and perineal pain] Onset: 09-07-2022 Episodic Attention-deficit, conduct, and disruptive behavior disorders (3 sources) Attention-deficit hyperactivity disorder, unspecified type; Translations: [ADHD UNSPECIFIED TYPE] Onset: 02-27-2022 Chronic Mood disorders (2 sources) Major depressive disorder, single episode, unspecified; Translations: [Major depressive disorder. single episode. unspecified] Onset: 08-27-2023 Chronic Substance-related disorders (1 source) Nicotine dependence, [...] 02-25-2022 Episodic Other aftercare (1 source) Other manager terminal (current) drug therapy; Translations: [OTH CUSTODIAL CURRENT DRUG THERAPY] Onset: 02-27-2022 Episodic Pleurisy; pneumothorax; pulmonary collapse (1 source) Pleurisy; Translations: [PLEURISY] Onset: 02-27-2022 Episodic Unclassified (1 source) CONTACT W/AND (SUSP) EXPOS COVID-19; Translations: [CONTACT W/AND (SUSP) EXPOS COVID-19] Onset: 09-03-2022 Unclassified (1 source) COUGH, UNSPECIFIED; Translations: [COUGH, UNSPECIFIED] Onset: 06-10-2022 Results Test Name Value Interpretation Reference Range Facil ity Nilson 09-07-2022 L - -------- Specimen: [id number] Received: 09/07/22 Status: SANJUANITA Martinez Num: [id number] Spec Type: Surgical Subm Dr: DEIDRA REES MD Tissues: A Uterus w/ or w/o tubes ovaries except neoplastic or prolap (CERVIX, MARÍA FT Procedures: HE/8, Gross/Micro L5 -------- Age/ Patient Sex Location Account Attending Physician -------- Keli Estrada 22 [place] [id number] DEIDRA REES MD -------- SPEC NUM: [id number] RECD: 09/07/22 STATUS: SANJUANITA HENRIQUEZ NUM: [id number] NESS: 09/07/22- [facility] DR: DEIDRA REES MD ENTERED: 09/07/[address] [facility] [address]: [facility] SPEC TYPE: Surgical DEPT: S ORDERED: , Gross/Micro L5 ORDERED: , Gross/Micro L5 Pathological Diagnosis Uterus, cervix, bilateral [...] 0.8 cm patent os. The endocervix is pedro red, glistening. The pedro- red endometrium averages [...] smooth-walled, clear fluid-filled cyst is -------- Specimen: [id number] Received: 09/07/22 Status: SANJUANITA Henriquez Num: [id number] Spec Type: Surgical Subm Dr: DEIDRA REES MD Tissues: A Uterus w/ or w/o tubes ovaries except neoplastic or prolap (CERVIX, MARÍA FT Procedures: HE/8, Gross/Micro L5 -------- Patient: Keli Estrada [id number] (Continued) -------- Specimen: [id number] Received: 09/07/22 (Continued) Gross Description (Continued) Signed (signature on file) Julia Ballesteros MD 09/08/22 1316 -------- Specimen: [id number] Received: 09/07/22 Status: SANJUANITA Henriquez Num: [id number] Spec Type: Surgical Subm Dr: DEIDRA REES MD Tissues: A Uterus w/ or w/o tubes ovaries except neoplastic or prolap (CERVIX, MARÍA FT Procedures: HE/Padmini, Gross/Micro L5 -------- Patient: Keli Estrada [id number] (Continued) -------- Specimen: [id number] Received: 09/07/22 (Continued) Gross Description (Continued) identified in the attached fat pad. The fallopian tube has a pinpoint lumen on cut section. Stone Gluer sections are submitted in 8 cassettes as [...] support the above pathologic diagnosis. CPT Codes 47809 -------- (more content not included)... Normal [facility] Covid-19 PCR ([facility])on 08-13 SARS-CoV-2 (COVID-19) RNA KEKE+probe Ql (Unsp spec) Not detected Normal NOT DETECTED [facility] Comment on above: Result Comment: This test is not yet approved or cleared by the [place] FDA. When there are no FDA-approved or cleared tests available, and other criteria are met, FDA can make tests available under an emergency access mechanism called an Emergency Use Authorization (EUA). The EUA for this test is supported by the [place] of Health and Human Service's (HHS's) declaration [...] SARS-CoV-2. Performed By: #### C VDTB #### [facility] [address] [place] [address] Dr. Ning Leonardo Covid-19 PCR ([facility])on 05-15 SARS-CoV-2 (COVID-19) RNA KEKE+probe Ql (Unsp spec) Not detected Normal NOT DETECTED [facility] Comment on above: Result Comment: When diagnostic [...] for this test is supported by the [place] of Health and Human Service's declaration that [...] used). Performed By: #### C VDTB #### [facility] [address] [place] [address] Dr. Ning Leonardo INFL[facility] A [facility] B [facility] Normal [facility] Comment on above: Result Comment: Nega tive for Flu A protein angiten. Infection due to Flu A cannot be ruled out. Flu A angiten in the sample may be below the detection limit of the test. Performed By: #### I NFLUAB #### [facility] [address] [place] [address] Dr. Ning Leonardo INFLUBNEG SEE BELOW Normal [facility] Comment on above: Result Comment: Nega tive for Flu B protein antigen. Infection due to Flu B cannot be ruled out. Flu B antigen in the sample may be below the detection limit of the test. Performed By: #### I NFLUAB #### [facility] [address] [place] [address] Dr. Ning Leonardo INFLUENZA A AG Negative Normal NEGATIVE SEE COMMENT [facility] Comment on above: Performed By: #### I NFLUAB #### [facility] [address] [place] [address] Dr. Ning Leonardo INFLUENZA B AG Negative Normal NEGATIVE SEE COMMENT [facility] Comment on above: Performed By: #### I NFLUAB #### [facility] [address] [place] [address] Dr. Ning Leonardo CBC AUTO DIFFon 02-25-2022 BASO # 0.0 103/ul Normal 0.0-0.1 [facility] Comment on above: Performed By: #### C BC #### [facility] [address] [place] [address] Dr. Ning Leonardo Basophils/100 WBC (Bld) 0.8 % Normal 0.2-2.0 [facility] Comment on above: Performed By: #### C BC #### [facility] [address] [place] [address] Dr. Ning Leonardo EO # 0.3 103/ul Normal 0.0-0.7 [facility] Comment on above: Performed By: #### C BC #### [facility] [address] [place] [address] Dr. Ning Leonardo Eosinophils/100 WBC (Bld) 6.2 % Normal 0.9-7.0 [facility] Comment on above: Performed By: #### C BC #### [facility] [address] [place] [address] Dr. Ning Leonardo Erythrocyte distribution width (RBC) [Ratio] 13.1 % Normal 11.0-15.0 [facility] Comment on above: Performed By: #### C BC #### [facility] [address] [place] [address] Dr. Ning Leonardo Hematocrit (Bld) [Volume fraction] 39.7 % Normal 36.0-48.0 [facility] Comment on above: Performed By: #### C BC #### [facility] [address] [place] [address] Dr. Ning Leonardo Hemoglobin (Bld) [Mass/Vol] 13.3 g/dL Normal 12.0-16.0 [facility] Comment on above: Performed By: #### C BC #### [facility] [address] [place] [address] Dr. Ning Leonardo IG # 0.03 10e3/ul Normal 0.00-0.03 [facility] Comment on above: Performed By: #### C BC #### [facility] [address] [place] [address] Dr. Ning Leonardo IG % 0.6 % Critically high 0.0-0.5 [facility] Comment on above: Performed By: #### C BC #### [facility] [address] [place] [address] Dr. Ning Leonardo LYMPH # 1.0 103/ul Critically low 1.2-3.8 [facility] Comment on above: Performed By: #### C BC #### [facility] [address] [place] [address] Dr. Ning Leonardo Lymphocytes/100 WBC (Bld) 18.8 % Critically low 20.5-60.0 [facility] Comment on above: Performed By: #### C BC #### [facility] [address] [place] [address] Dr. Ning Leonardo MANUAL DIFF REQ NO Normal [facility] Comment on above: Performed By: #### C BC #### [facility] [address] [place] [address] Dr. Ning Leonardo MCH (RBC) [Entitic mass] 32.5 pg Normal 26.7-34.0 [facility] Comment on above: Performed By: #### C BC #### [facility] [address] [place] [address] Dr. Ning Leonardo MCHC (RBC) [Mass/Vol] 33.5 g/dL Normal 29.9-35.2 [facility] Comment on above: Performed By: #### C BC #### [facility] [address] [place] [address] Dr. Ning Leonardo MCV (RBC) [Entitic vol] 97.1 fL Normal 81.0-99.0 [facility] Comment on above: Performed By: #### C BC #### [facility] [address] [place] [address] Dr. Ning Leonardo MONO # 0.6 103/ul Normal 0.3-0.8 [facility] Comment on above: Performed By: #### C BC #### [facility] [address] [place] [address] Dr. Ning Leonardo Monocytes/100 WBC (Bld) 11.6 % Normal 1.7-12.0 [facility] Comment on above: Performed By: #### C BC #### [facility] [address] [place] [address] Dr. Ning Leonardo NEUT # 3.2 103/ul Normal 1.4-6.5 [facility] Comment on above: Performed By: #### C BC #### [facility] [address] [place] [address] Dr. Ning Leonardo Neutrophils/100 WBC (Bld) 62.0 % Normal 43.0-75.0 [facility] Comment on above: Performed By: #### C BC #### [facility] [address] [place] [address] Dr. Ning Leonardo Platelet mean volume (Bld) [Entitic vol] 11.1 fL Normal 9.5-13.5 [facility] Comment on above: Performed By: #### C BC #### [facility] [address] [address] [address] Ning Leonardo PLT 143 103/ul Critically low 150-450 [facility] Comment on above: Performed By: #### C BC #### [facility] [address] [address] [address] Ning Leonardo RBC 4.09 106/ul Critically low 4.20-5.40 [facility] Comment on above: Performed By: #### C BC #### [facility] [address] [address] [address] Ning Leonardo WBC 5.2 103/ul Normal 4.0-11.0 [facility] Comment on above: Performed By: #### C BC #### [facility] [address] [place] [address] Dr. Ning Leonardo CTA CHEST WO W [...] by: NÉSTOR JOHNSTON Date: 2022-02-25 17:09 Normal [facility] PROF CHEM 8 (BAS METB)on Anion gap [Moles/Vol] 5.6 mmol/L Normal [facility] Comment on above: Performed By: #### B MP, HSTROPN #### [facility] [address] [place] [address] Dr. Ning Loenardo Calcium [Mass/Vol] 8.6 mg/dL Normal 8.5-10.1 [facility] Comment on above: Performed By: #### B ELIS, HSTROPN #### [facility] [address] [address] [address] Ning Leonardo Chloride [Moles/Vol] 106 mmol/L Normal 98-107 [facility] Comment on above: Performed By: #### B ELIS, HSTROPN #### [facility] [address] [address] [address] Ning Leonardo CO2 [Moles/Vol] 28.9 mmol/L Normal 21.0-32.0 [facility] Comment on above: Performed By: #### B ELIS, HSTROPN #### [facility] [address] [place] [address] Dr. Ning Leonardo Creatinine [Mass/Vol] 0.60 mg/dL Normal 0.55-1.02 [facility] Comment on above: Performed By: #### B ELIS, HSTROPN #### [facility] [address] [place] [address] Dr. Ning Leonardo EGFR-AF BRAZILIAN >60 Normal >=60 [facility] Comment on above: Performed By: #### B ELIS, HSTROPN #### [facility] [address] [place] [address] Dr. Ning Leonardo EGFR-NON AF BRAZILIAN >60 Normal >=60 [facility] Comment on above: Performed By: #### B ELIS, HSTROPN #### [facility] [address] [place] [address] Dr. Ning Leonardo Glucose [Mass/Vol] 79 mg/dL Normal 74-106 [facility] Comment on above: Performed By: #### B ELIS, HSTROPN #### [facility] [address] [address] [address] Ning Leonardo Potassium [Moles/Vol] 4.5 mmol/L Normal 3.5-5.1 [facility] Comment on above: Result Comment: spec imen slightly hemolyzed Performed By: #### B MP, HSTROPN #### [facility] [address] [address] [address] Ning Leonardo Sodium [Moles/Vol] 136 mmol/L Normal 136-145 [facility] Comment on above: Performed By: #### B MP, HSTROPN #### [facility] [address] [place] [address] Dr. Ning Leonardo Urea nitrogen [Mass/Vol] 12.0 mg/dL Normal 7.0-18.0 [facility] Comment on above: Performed By: #### B MP, HSTROPN #### [facility] [address] [address] [address] Ning Leonardo Urea nitrogen/Creatinine [Mass ratio] 20.0 mg/mg Normal [facility] Comment on above: Performed By: #### B MP, HSTROPN #### [facility] [address] [place] [address] Dr. Ning Leonardo TROPONIN, HIGH SENSITIVITYon 02-25-2022 HSTROP 4.8 pg/mL Normal 4.0-51.3 [facility] Comment on above: Result Comment: CUT- OFF POINTS HAVE BEEN ESTABLISHED BASED ON THE FOURTH UNIVERSAL DEFINITIONS OF MYOCARDIAL INFARCTION. THE UPPER REFERENCE LIMIT (URL) OF TROPONIN, DEFINED THE 99TH PERCENTILE OF cTnI DISTRIBUTION IN A REFERENCE POPULATION, HAS BEEN CONFIRMED THE DECISION THRESHOLD FOR [place] DIAGNOSIS. Performed By: #### B MP, HSTROPN #### [facility] [address] [place] [address] Dr. Ning Palmer [facility] KELI ESTRADA ([id number]) 2000 F Date Time Provider Department 02/18/21 JACOBY REYES [facility] During your visit today, we recorded the following information about you: Lavern Rob Beth[place] 02/18/2021 9:02 AM Signed Called patient and left a voice message to call the office back at [phone] option 3. Dear Keli This is a follow up phone call regarding your appointment with Dr. Reyes At [facility]. Your appointment time is 2arrive at 1:40. [...] referring physician. 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, which means that he treats chronic pain [...] Status:Closed by LAVERN ROB MA on 05/13/21 [facility]20[facility] KELI ESTRADA ([id number]) 2000 F Date Time Provider Department 02/12/21 JACOBY REYES [facility] During your visit today, we recorded the following information about you: Myrtle Child 02/12/2021 11:08 AM Signed Left message on [...] Encounter Status:Closed by MYRTLE CHILD on 02/12/21 [facility] CNOVon 02-04-2021 [facility] KELI ESTRADA ([id number]) 2000 F Date Time Provider Department 02/04/21 2:00 PM ALFIE CARD [facility] During your visit today, we recorded the following information about you: Blood pressure Weight Height 121/69 89.8 kg 1.626 m Alfie Card 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 Not on it now. 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 Never seen endocrinology Pudendal injection helped with tailbone pain. Has not been back to see Dr Reyes. Had a lot of relief for quite some time. Pelvic floor physical therapy for 1-2 months. No relief. Made it worse. Made better with Ibuprofen. [place] - sometimes pain afterwards. 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 - baclofen vaginal sup (more content not included)... Normal [facility] Coding Summaryon 12-29-2019 Coding Summary CODING DATE: 12/29/2019 [facility] STATUS: Home PAYOR: Medicaid HMO ADMIT DX: [...] Queta Gonzalez Date Saved: 12/29/2019 05:00 pm [place] Coding Summary CODING DATE: 12/29/2019 [facility] STATUS: Home PAYOR: Medicaid HMO ADMIT DX: [...] Queta Gonzalez Date Saved: 12/29/2019 04:59 pm [place] .Auto Diff 1on 12-21-2019 [facility] [place] % 6 % Normal 1-12 [facility] Comment on above: Performed By: #### 1 [id number], [id number], [id number], [id number], [id number] ####[facility] (DEFAULT)[address] [place] [address] Baso Abs# 0.0 x10 Normal 0.0-0.2 [facility] Comment on above: Performed By: #### 1 [id number], [id number], 2139649, 14312953, [id number] ####[facility] (DEFAULT)[address] [place] [address] Basophils/100 WBC (Bld) 0.3 % Normal 0.2-2.0 [facility] Comment on above: Performed By: #### 1 [id number], [id number], 5052213, [id number], [id number] ####[facility] (DEFAULT)[address] [place] [address] Eos Abs# 0.4 x10 Normal 0.0-0.4 [facility] Comment on above: Performed By: #### 1 [id number], [id number], 0158892, 10009562, [id number] ####[facility] (DEFAULT)[address] [place] [address] Eosinophils/100 WBC (Bld) 3.3 % Normal 0.9-4.0 [facility] Comment on above: Performed By: #### 1 [id number], [id number], 7854274, 43779752, [id number] ####[facility] (DEFAULT)[address] [place] [address] Lymphocytes (Bld) [#/Vol] 1.2 x10 Low 1.3-2.9 [facility] Comment on above: Performed By: #### 1 [id number], [id number], 5842205, 52425901, [id number] ####[facility] (DEFAULT)[address] [place] [address] Lymphocytes/100 WBC (Bld) 9 % Low 14-48 [facility] Comment on above: Performed By: #### 1 [id number], [id number], 3194554, 80395066, [id number] ####[facility] (DEFAULT)[address] [place] [address] [place] Abs# 0.8 x10 Normal 0.0-0.8 [facility] Comment on above: Performed By: #### 1 [id number], [id number], 7836762, 18187918, [id number] ####[facility] (DEFAULT)[address] [place] [address] Neut Abs# 10.5 x10 High 1.5-9.2 [facility] Comment on above: Performed By: #### 1 [id number], [id number], 5794509, 27287823, [id number] ####[facility] (DEFAULT)[address] [place] [address] Neutrophils/100 WBC (Bld) 81 % Normal 44-88 [facility] Comment on above: Performed By: #### 1 [id number], [id number], 1277685, 77784460, [id number] ####[facility] (DEFAULT)[address] [place] [address] CBC w/ Auto Diffon 0 Erythrocyte distribution width (RBC) [Ratio] 12.6 % Normal 11.5-15.0 [facility] Comment on above: Performed By: #### 1 [id number], [id number], 8833050, 31383053, [id number] ####[facility] (DEFAULT)[address] [place] [address] Hematocrit (Bld) [Volume fraction] 43.2 % High 33.7-40.4 [facility] Comment on above: Performed By: #### 1 [id number], [id number], 0706605, 21554714, [id number] ####[facility] (DEFAULT)[address] [place] [address] Hemoglobin (Bld) [Mass/Vol] 14.7 g/dL Normal 11.3-15.9 [facility] Comment on above: Performed By: #### 1 [id number], [id number], 4595688, 24197921, [id number] ####[facility] (DEFAULT)[address] [place] [address] Man Diff? Auto Normal [facility] Comment on above: Performed By: #### 1 [id number], [id number], 1232149, 14668512, [id number] ####[facility] (DEFAULT)[address] [place] [address] MCH (RBC) [Entitic mass] 32 pg Normal 24-34 [facility] Comment on above: Performed By: #### 1 [id number], [id number], 0596149, 14520398, [id number] ####[facility] (DEFAULT)[address] [place] [address] MCHC (RBC) [Mass/Vol] 34 g/dL Normal 26-37 [facility] Comment on above: Performed By: #### 1 [id number], [id number], 5402141, 11927312, [id number] ####[facility] (DEFAULT)[address] [place] [address] MCV (RBC) [Entitic vol] 92 fL Normal 81-100 [facility] Comment on above: Performed By: #### 1 [id number], [id number], 6940475, 70682325, [id number] ####[facility] (DEFAULT)[address] [place] [address] Platelet mean volume (Bld) [Entitic vol] 10.2 fL Normal 6.3-10.2 [facility] [facility] Comment on above: Performed By: #### 1 [id number], [id number], 9331717, 00132622, [id number] ####[facility] (DEFAULT)[address] [place] [address] Platelets (Bld) [#/Vol] 208 x10 Normal 138-427 [facility] Comment on above: Performed By: #### 1 [id number], 5259245926, 1477763, 71149327, 1942659579 ####[facility] (DEFAULT)[address] [place] [address] 17206 RBC (Bld) [#/Vol] 4.67 x10 Normal 3.70-5.30 [facility] Comment on above: Performed By: #### 1 [id number], 6615775864, 8161129, 36588694, 0721307990 ####[facility] (DEFAULT)[address] [place] [address] 01373 WBC (Bld) [#/Vol] 12.9 x10 [facility] Comment on above: Performed By: #### 1 [id number], 6315220296, 0195351, 28860186, 8860472250 ####[facility] (DEFAULT)[address] [place] [address] 72466 CMP Standardon 12-21-2019 eGFR Non AA >60 [facility] Comment on above: Performed By: #### 1 [id number], 7163701, 42479667, 9514852, 6020775055, 1985252112 #### [facility] (DEFAULT) [address] [place] [address] 77610 eGFR AA >60 [facility] Comment on above: Result Comment: Community Outreach Coordinator angie Kidney disease could be indicated at eGFRs of less than 60 ml/min/1.73m2. Kidney Failure is indicated at less than 15 ml/min/1.73m2 Performed By: #### 1 [id number], 5907572, 78815178, 5682952, 0052618824, 1497034875 #### [facility] (DEFAULT) [address] [place] [address] Albumin [Mass/Vol] 3.9 g/dL Normal 3.5-5.0 [facility] Comment on above: Performed By: #### 1 950541042, 1671061, 10240411, 7709679, 8514337339, 8014263846 #### [facility] (DEFAULT) [address] [place] [address] Albumin/Globulin [Mass ratio] 1.3 {ratio} Low 1.4-2.6 [facility] Comment on above: Performed By: #### 1 [id number], 6124249, 26142747, 4917398, 2594062562, 4380817768 #### [facility] (DEFAULT) [address] [place] [address] 45169 Alk Phos 54 IU/L Normal 32-91 [facility] Comment on above: Performed By: #### 1 [id number], 1302552, 60362805, 3808492, 0579287993, 0835433309 #### [facility] (DEFAULT) [address] [place] [address] ALT/SGPT 23.0 IU/L Normal 14.0-54.0 [facility] Comment on above: Performed By: #### 1 164279063, 2055188, 55412338, 3321846, 1752977153, 4679150318 #### [facility] (DEFAULT) [address] [place] [address] 80454 Anion gap [Moles/Vol] 10.0 mmol/L Normal 5.0-19.0 [facility] Comment on above: Performed By: #### 1 957456514, 9151477, 04931566, 2160978, 4217554507, 8156780208 #### [facility] (DEFAULT) [address] [place] [address] 53691 AST/SGOT 17 IU/L Normal 15-41 [facility] Comment on above: Performed By: #### 1 495684717, 2237984, 65479806, 2326760, 0553093434, 7249582246 #### [facility] (DEFAULT) [address] [place] [address] 89980 Bili Total 0.5 mg/dL Normal 0.3-1.2 [facility] Comment on above: Performed By: #### 1 635189653, 2453218, 14846917, 5697021, 7953026519, 3940259128 #### [facility] (DEFAULT) [address] [place] [address] 56261 Calcium [Mass/Vol] 8.6 mg/dL Low 8.9-10.3 [facility] Comment on above: Performed By: #### 1 [id number], 0266321, 68906788, 6600602, 0002886110, 2871484132 #### [facility] (DEFAULT) [address] [place] [address] 47383 Chloride [Moles/Vol] 107 mmol/L Normal 101-111 [facility] Comment on above: Performed By: #### 1 078558676, 5466000, 99206434, 7852724, 2936904205, 7538896694 #### [facility] (DEFAULT) [address] [place] [address] 60870 CO2 [Moles/Vol] 23 mmol/L Normal 21-32 [facility] Comment on above: Performed By: #### 1 427635968, 2925730, 06705092, 6171713, 9718847021, 8887782300 #### [facility] (DEFAULT) [address] [place] [address] 80713 Creatinine [Mass/Vol] 0.85 mg/dL Normal 0.60-1.30 [facility] Comment on above: Performed By: #### 1 801037575, 7438809, 65433568, 7936294, 5975743311, 0984879148 #### [facility] (DEFAULT) [address] [place] [address] 30921 Globulin (S) [Mass/Vol] 2.9 g/dL Normal 1.5-4.3 [facility] Comment on above: Performed By: #### 1 558310160, 0594432, 85345310, 2046942, 9040160296, 6199149353 #### [facility] (DEFAULT) [address] [place] [address] 59322 Glucose [Mass/Vol] 94.0 mg/dL Normal 74.0-118.0 [facility] Comment on above: Performed By: #### 1 428015572, 9404845, 88247113, 7488163, 9913865929, 2023973572 #### [facility] (DEFAULT) [address] [place] [address] 31134 Osmolality [Osmolality] 274 mOsm/L [facility] Comment on above: Performed By: #### 1 730510913, 1447792, 43809507, 3365687, 2055123560, 6432038289 #### [facility] (DEFAULT) [address] [place] [address] 13580 Potassium [Moles/Vol] 3.4 mmol/L Low 3.6-5.1 [facility] Comment on above: Performed By: #### 1 041043776, 3437606, 10727182, 2391398, 0547529407, 9792614103 #### [facility] (DEFAULT) [address] [place] [address] 77512 Protein [Mass/Vol] 6.8 g/dL Normal 6.5-8.1 [facility] Comment on above: Performed By: #### 1 [id number], 1448674, 29421872, 0261963, 2152422235, 2626759320 #### [facility] (DEFAULT) [address] [place] [address] 73021 Sodium [Moles/Vol] 137.0 mmol/L Normal 136.0-144.0 [facility] Comment on above: Performed By: #### 1 027743775, 8238173, 08634610, 9245382, 0464700018, 7909432285 #### [facility] (DEFAULT) [address] [place] [address] 13770 Urea nitrogen [Mass/Vol] 14 mg/dL Normal 8-26 [facility] Comment on above: Performed By: #### 1 [id number], 5865136, 46791541, 4783195, 2237018859, 2146872148 #### [facility] (DEFAULT) [address] [place] [address] 30956 Urea nitrogen/Creatinine [Mass ratio] 16.0 mg/mg Normal 4.6-16.2 [facility] Comment on above: Performed By: #### 1 [id number], 1759574, 58891792, 4345928, 2896649554, 1641891240 #### [facility] (DEFAULT) [address] [place] [address] 59630 ED Clinical Summaryon 2019 ED Clinical Summary [facility] - Emergency Department [address] [place] [address] 75046 ED Clinical Summary PERSON INFORMATION Name: KELI ESTRADA Age: 19 Years Sex: FEMALE : 2000 MRN: Acct#: Visit Reason: Diarrhea; Headache; Diarrhea; Headache - Recurrent; HEADACHE, BODY ACHES Arrival: 12/21/2019 00:29:46 Discharge: 12/21/2019 02:29:00 LOS: 000 02:00 Check In: 12/21/2019 00:29:46 Checkout:12/21/2019 02:29:00 Address: [place] [address] PCP: KO FREEMAN PROVIDER INFORMATION Provider Role Assigned Unassigned Cyrus Resendez MD ED Provider 12/21/2019 00:30:56 Ayla Regalado [employer] OBJECTS DEVELOPER Nurse 12/21/2019 00:47:16 VITALS INFORMATION Vital Sign [...] Home PATIENT EDUCATION INFORMATION Instructions: Migraine Headache, Zfzz-jj-Zcds; Viral Gastroenteritis, Adult, Kejn-gi-Ldtt Follow-Up: With: Address: When: KO FREEMAN [address] [place] [address], [facility] [place] [phone] Business (1) Within 3 to 5 days DIAGNOSIS: Gastroenteritis; Headache Patient Understands: Yes - Patient/family/caregi shanique verbalizes understanding of instructions given Comment: [facility] ED Note - Physicianon 2019 ED Note [...] Auto Lymph % 9 % LOW Auto [place] % 6 % Auto Eos % 3.3 % Auto Baso % 0.3 % Neut Abs# 10.5 x103/mcL HI Lymph Abs# 1.2 x103/mcL LOW [place] Abs# 0.8 x103/mcL Eos Abs# 0.4 x103/mcL Baso Abs# 0.0 x103/mcL Tube Collected Yes Tube Collected Yes . Notes: Patient symptoms improved with IV hydration, IV Benadryl, Reglan and Zofran.. Impression and Plan Diagnosis Gastroenteritis (ESO83-PR K52.9, Discharge, Medical) Headache (BOT35-ON R51, Discharge, Medical) Plan Condition: Improved, Stable. Disposition: Discharged: to home. Patient was given the following educational materials: Viral Gastroenteritis, Adult, Dvxa-dw-Tolj, Migraine Headache, Cfti-ke-Biqt, Migraine Headache, Povd-su-Fqro, Viral Gastroenteritis, Adult, Ifce-iu-Epdb. Follow up with: KO FREEMAN Within 3 to 5 days. Counseled: Patient, Regarding diagnosis, Regarding diagnostic results, Regarding treatment plan, Patient indicated understanding of instructions. [Electronically Signed on: 12/21/2019 07:54 EDT] Cyrus Resendez MD [Verified on: 12/21/2019 07:54 EDT] Cyrus Resendez MD [facility] ED Note-Nursingon 12-21-2019 ED Note-Nursing patient arrived [...] lot today and may also be dehydrated. [facility] ED Patient Education Noteon 12-21-2019 ED Patient [...] ? Low-calorie sports drinks. ? Eat bland, ytvl-rk-edtoli foods in small amounts as you are able, such as: ? Bananas. ? Applesauce. ? Rice. ? Low-fat (lean) meats. ? Meacham. ? Crackers. ? Avoid fluids that have a lot of sugar or caffeine in them. ? Avoid alcohol. ? Avoid spicy or fatty foods. General instructions ? Drink enough fluid to keep your pee (urine) clear or pale yellow. ? Wash your hands often. If you cannot use soap and water, use hand sqe. ? Make sure that all people in your home wash their hands well and often. ? Rest at home while you get better. ? Take xrwi-lwh-lrwzcrb and prescription medicines only as told by [...] 11/16/2008 Document Revised: 02/22/2019 Document Reviewed: 02/04/2016 [employer] Patient Education ? 2018 [employer]. Neurology Migraine Headache Use Tylenol, ibuprofen and [...] these instructions at home: Medicines ? Take byne-cmf-pjevmwe and prescription medicines only as told by your doctor. ? Do not drive or use heavy machinery while taking prescription pain medicine. ? To prevent or treat constipation while you are taking prescription pain medicine, your doctor may recommend that you: ? Drink enough fluid to keep your pee (urine) clear or pale yellow. ? Take qjgi-end-ruknmwj or prescription medicines. ? Eat foods that [...] 03/09/2009 Document Revised: 02/22/2019 Document Reviewed: 11/16/2016 [employer] Patient Education ? 2019 [employer]. Normal [facility] ED Patient Summaryon 020 ED Patient Summary [facility] - Emergency Department [address] [id number] PATIENT DISCHARGE INSTRUCTIONS Patient Information Name: KELI ESTRADA Age: 19 Years Date of : 2000 Reason For Visit: Diarrhea; Headache; Diarrhea; Headache - Recurrent; HEADACHE, BODY ACHES Arrival Time: 12/21/2019 00:29:46 Primary Care Physician: KO FREEMAN Attending Physician: Cyrus Resendez MD Comment: Visit Diagnosis: Diagnoses This Visit Diarrhea ([id number]) Diarrhea ([id number]) Gastroenteritis (K52.9) Headache (R51) Headache ([id number]) Headache - Recurrent ([id number]) Prescription Information: If you have been given a prescription for narcotics, seek immediate medical attention if you have any difficulty breathing or any sudden status changes such as confusion and sleepiness. If you or anyone you know is experiencing suicidal thoughts, mental health, alcohol and/or drug addiction problems; contact the [facility] 04/01 Crisis Hotline -Text 4HUGP hw 686223. If you received any narcotics, sedation, or [...] legal documents With: Address: When: KO FREEMAN [address] [place] [address] [place] [phone] Business (1) Within 3 to 5 days Medication Information: The exam and treatment you received today in the [facility] Emergency Department were for an urgent problem and are not intended as complete care. It is important for you to follow up with a doctor, nurse practitioner, or physician?s social research assistant for ongoing care. If your symptoms become [...] so we can reach you if necessary. [facility] Emergency Department has provided you with a complete list of medications post discharge. Please inform your floor sweeper/provider of your visit and for further instruction [...] these instructions at home: Medicines ? Take bwyc-rbb-jeahrie and prescription medicines only as told by your doctor. ? Do not drive or use heavy machinery while taking prescription pain medicine. ? To prevent or treat constipation while you are taking prescription pain medicine, your doctor may recommend that you: ? Drink enough fluid to keep your pee (urine) clear or pale yellow. ? Take pgmr-pmj-uvjyycf or prescription medicines. ? Eat foods that [...] 03/09/2009 Document Revised: 02/22/2019 Document Reviewed: 11/16/2016 [employer] Patient Education ? 2019 [employer]. Viral Gastroenteritis, Adult Viral gastroenteritis is also [...] ? Low-calorie sports drinks. ? Eat bland, wxvy-ex-mzelcn foods in small amounts as you are able, such as: ? Bananas. ? Applesauce. ? Rice. ? Low-fat (lean) meats. ? Meacham. ? Crackers. ? Avoid fluids that have a lot of sugar or caffeine in them. ? Avoid alcohol. ? Avoid spicy or fatty foods. General instructions ? Drink enough fluid to keep your pee (urine) clear or pale yellow. ? Wash your hands often. If you cannot use soap and water, use hand sqe. ? Make sure that all people in your home wash their hands well and often. ? Rest at home while you get better. ? Take zrln-qlp-wssfzrw and prescription medicines only as told by [...] 11/16/2008 Document Revised: 02/22/2019 Document Reviewed: 02/04/2016 [employer] Patient Education ? 2019 [employer] Viruses or Bacteria What?s got you [...] Disease Control and Prevention February 2014 Normal [facility] Extra Redon 12-21-2019 Tube Collected Yes [facility] Comment on above: Performed By: #### 1 [id number], 7134752595, 5043981, 41151871, 4422486962 ####[facility] (DEFAULT)[address] [place] [address] Pharmacy Noteon 12-21-2019 Pharmacy Note I have [...] [Verified on: 12/21/2019 15:00 EDT] Carolyn Medina [facility] UA w Culture if Ind Standard on 12-21-2019 [facility] Comment on above: Performed By: #### 1 [id number], 6672953, 51060416, 0753403, 1133726652, 6079360116 #### [facility] (DEFAULT) [address] [place] [address] 24448 Color (U) Yellow [facility] Comment on above: Performed By: #### 1 [id number], 1854002, 85543574, 9525571, 1121019349, 2108272850 #### [facility] (DEFAULT) [address] [place] [address] 80302 Culture? Not Indicated [facility] Comment on above: Performed By: #### 1 291507279, 6961595, 21578555, 0186998, 1295804030, 4763011958 #### [facility] (DEFAULT) [address] [place] [address] 22219 Glucose (U) [Mass/Vol] Negative [facility] Comment on above: Performed By: #### 1 297803446, 6355423, 42890490, 5930195, 9996906332, 3457901369 #### [facility] (DEFAULT) [address] [place] [address] 94489 Ketones Ql (U) Negative Normal [facility] Comment on above: Performed By: #### 1 724063148, 2293218, 94605161, 4277688, 1077377173, 4161194254 #### [facility] (DEFAULT) [address] [place] [address] 35860 Micro? Not Indicated [facility] Comment on above: Performed By: #### 1 214863366, 2815535, 12948964, 4832189, 2696967065, 9405219124 #### [facility] (DEFAULT) [address] [place] [address] 39406 UA Bilirubin Negative Normal [facility] Comment on above: Performed By: #### 1 261641071, 7443737, 58101773, 7969227, 9948083379, 7569145510 #### [facility] (DEFAULT) [address] [place] [address] 01818 UA Blood Negative Normal NEGATIVE [facility] Comment on above: Performed By: #### 1 990460162, 7622369, 65272674, 4744240, 8611328077, 7629705625 #### [facility] (DEFAULT) [address] [place] [address] 69859 UA Clarity CLEAR Normal CLEAR [facility] Comment on above: Performed By: #### 1 681572309, 2663513, 27321137, 8148258, 0177205948, 0734818874 #### [facility] (DEFAULT) [address] [place] [address] 45718 UA Leuk Est Negative Normal NEGATIVE [facility] Comment on above: Performed By: #### 1 602076808, 4557788, 93749805, 7885668, 5073494726, 3671281908 #### [facility] (DEFAULT) [address] [place] [address] 10993 UA Nitrite Negative Normal NEGATIVE [facility] Comment on above: Performed By: #### 1 515242970, 1328524, 89191277, 2301107, 9666614284, 2488856123 #### [facility] (DEFAULT) [address] [place] [address] 13178 UA pH 6.5 Normal 5-8 [facility] Comment on above: Performed By: #### 1 135871485, 6086249, 50754015, 0455400, 9589462954, 9631056564 #### [facility] (DEFAULT) [address] [place] [address] UA Protein Negative Normal NEGATIVE [facility] Comment on above: Performed By: #### 1 970013166, 8089200, 71816776, 6847182, 9140090353, 1598642263 #### [facility] (DEFAULT) [address] [place] [address] UA Spec Grav 1.025 Normal 1.001-1.035 [facility] Comment on above: Performed By: #### 1 483060166, 8106318, 06220194, 6529027, 5393975428, 0849631944 #### [facility] (DEFAULT) [address] [place] [address] UA Urobilinogen 1.0 mg/dL Normal 0.2-1.0 [facility] Comment on above: Performed By: #### 1 622968917, 8188153, 63824102, 4806204, 4122604231, 5096757625 #### [facility] (DEFAULT) [address] [place] [address] Urine Source Clean Catch Normal [facility] Comment on above: Performed By: #### 1 751705233, 2177131, 27741824, 0815727, 7199694262, 2375303830 #### [facility] (DEFAULT) [address] [place] [address] Coding Summaryon 08-21-2019 Coding Summary CODING DATE: 08/21/2019 FINAL [facility] STATUS: Home PAYOR: Self Pay ADMIT DX: [...] Coded By: Christoph Gonzalez' Date Saved: 08/21/2019 02:57 pm [facility] Coding Summary CODING DATE: 08/21/2019 [facility] STATUS: Home PAYOR: Self Pay ADMIT [...] terminology. Coded By: Queta Gonzalez Date Saved: 08/21/2019 02:55 pm [facility] .Auto Diff 1on 08-16-2019 Auto [place] % 6 % Normal 1-12 [facility] Comment on above: Performed By: #### 1 [id number], 1421423, 00241684, 6876368, 8727021064, 9325036257 #### [facility] (DEFAULT) [address] [place] [address] 29687 Baso Abs# 0.0 x10 Normal 0.0-0.2 [facility] Comment on above: Performed By: #### 1 137729111, 8714807, 01906071, 7200965, 0229123301, 1530257138 #### [facility] (DEFAULT) [address] [place] [address] 31778 Basophils/100 WBC (Bld) 0.3 % Normal 0.2-2.0 [facility] Comment on above: Performed By: #### 1 756057651, 7712401, 23483157, 7066842, 3953405562, 1031872856 #### [facility] (DEFAULT) [address] [place] [address] 90020 Eos Abs# 0.7 x10 High 0.0-0.4 [facility] Comment on above: Performed By: #### 1 241083821, 3439425, 55547232, 5116697, 5476718248, 2432687743 #### [facility] (DEFAULT) [address] [place] [address] 49061 Eosinophils/100 WBC (Bld) 5.8 % High 0.9-4.0 [facility] Comment on above: Performed By: #### 1 038273141, 8952696, 00915413, 2355360, 2670905979, 2926270267 #### [facility] (DEFAULT) [address] [place] [address] 41318 Lymphocytes (Bld) [#/Vol] 2.6 x10 Normal 1.3-2.9 [facility] Comment on above: Performed By: #### 1 892538682, 7593279, 58849034, 8559717, 4096556959, 4689672976 #### [facility] (DEFAULT) [address] [place] [address] 37233 Lymphocytes/100 WBC (Bld) 22 % Normal 14-48 [facility] Comment on above: Performed By: #### 1 535340393, 5647720, 55745997, 6530949, 6973463332, 0718833923 #### [facility] (DEFAULT) [address] [place] [address] 58969 Washington Abs# 0.6 x10 Normal 0.0-0.8 [facility] Comment on above: Performed By: #### 1 117061373, 3717650, 27875447, 9901347, 1060291847, 2385754718 #### [facility] (DEFAULT) [address] [place] [address] Neut Abs# 7.6 x10 Normal 1.5-9.2 [facility] Comment on above: Performed By: #### 1 724696013, 7209775, 94825884, 5592372, 9318353313, 2853666193 #### [facility] (DEFAULT) [address] [place] [address] 81453 Neutrophils/100 WBC (Bld) 66 % Normal 44-88 [facility] Comment on above: Performed By: #### 1 373132795, 8118426, 45213412, 6026611, 0297390654, 6644263985 #### [facility] (DEFAULT) [address] [place] [address] CBC w/ Auto Diffon 0 Erythrocyte distribution width (RBC) [Ratio] 12.4 % Normal 11.5-15.0 [facility] Comment on above: Performed By: #### 1 773730487, 8215256, 33351159, 1555243, 1441817613, 2200903784 #### [facility] (DEFAULT) [address] [place] [address] Hematocrit (Bld) [Volume fraction] 43.9 % High 33.7-40.4 [facility] Comment on above: Performed By: #### 1 596819509, 6710879, 29791200, 1974832, 5492235643, 1076382958 #### [facility] (DEFAULT) [address] [place] [address] Hemoglobin (Bld) [Mass/Vol] 15.1 g/dL Normal 11.3-15.9 [facility] Comment on above: Performed By: #### 1 603192056, 5649621, 91809622, 7270021, 8409770401, 5825233875 #### [facility] (DEFAULT) [address] [place] [address] Man Diff? Auto Normal [facility] Comment on above: Performed By: #### 1 960452970, 6818819, 18949051, 4131190, 0122720736, 7218899822 #### [facility] (DEFAULT) [address] [place] [address] 94317 MCH (RBC) [Entitic mass] 31 pg Normal 24-34 [facility] Comment on above: Performed By: #### 1 923410692, 1113266, 54764141, 8726961, 3447266033, 1275001756 #### [facility] (DEFAULT) [address] [place] [address] MCHC (RBC) [Mass/Vol] 34 g/dL Normal 26-37 [facility] Comment on above: Performed By: #### 1 360355303, 7989212, 80495131, 6113424, 5405295446, 7446173965 #### [facility] (DEFAULT) [address] [place] [address] 14995 MCV (RBC) [Entitic vol] 90 fL Normal 81-100 [facility] Comment on above: Performed By: #### 1 074289685, 7379117, 57487236, 3573820, 3153513076, 8039208199 #### [facility] (DEFAULT) [address] [place] [address] 85580 Platelet mean volume (Bld) [Entitic vol] 10.5 fL High 6.3-10.2 [facility] Comment on above: Performed By: #### 1 220433570, 2154384, 82982201, 8164774, 2273827178, 0787187162 #### [facility] (DEFAULT) [address] [place] [address] Platelets (Bld) [#/Vol] 207 x10 Normal 138-427 [facility] Comment on above: Performed By: #### 1 770008939, 1704195, 37038848, 3259978, 6797557114, 0103387183 #### [facility] (DEFAULT) [address] [place] [address] 52795 RBC (Bld) [#/Vol] 4.87 x10 Normal 3.70-5.30 [facility] [facility] Comment on above: Performed By: #### 1 [id number], [id number], [id number], 7942220, [id number], [id number] #### [facility] (DEFAULT) [address] [place] [address] 48214 WBC (Bld) [#/Vol] 11.6 x10 [facility] Comment on above: Performed By: #### 1 [id number], 1594966, 04421588, 8340086, [id number], [id number] #### [facility] (DEFAULT) [address] [place] [address] 64420 CMP Standardon 08-16-2019 eGFR Non AA >60 [facility] Comment on above: Performed By: #### 1 [id number], 3888993, 23904907, 4368026, [id number], [id number] #### [facility] (DEFAULT) [address] [place] [address] 27173 eGFR AA >60 [facility] Comment on above: Result Comment: Community Outreach Coordinator angie Kidney disease could be indicated at eGFRs of less than 60 ml/min/1.73m2. Kidney Failure is indicated at less than 15 ml/min/1.73m2 Performed By: #### 1 [id number], 1858775, 61527386, 6663052, [id number], [id number] #### [facility] (DEFAULT) [address] [place] [address] 01370 Albumin [Mass/Vol] 4.5 g/dL Normal 3.5-5.0 [facility] Comment on above: Performed By: #### 1 [id number], 9224543, 87786012, 1171457, [id number], [id number] #### [facility] (DEFAULT) [address] [place] [address] 66925 Albumin/Globulin [Mass ratio] 1.5 {ratio} Normal 1.4-2.6 [facility] Comment on above: Performed By: #### 1 [id number], 3485014, 84554489, 1592703, [id number], [id number] #### [facility] (DEFAULT) [address] [place] [address] 23494 Alk Phos 55 IU/L Normal 32-91 [facility] Comment on above: Performed By: #### 1 [id number], 9900316, 50512659, 4979836, [id number], [id number] #### [facility] (DEFAULT) [address] [place] [address] 86808 ALT/SGPT 35.0 IU/L Normal 14.0-54.0 [facility] Comment on above: Performed By: #### 1 [id number], 0123560, 40991807, 9884959, 0391886870, [id number] #### [facility] (DEFAULT) [address] [place] [address] 94036 Anion gap [Moles/Vol] 13.0 mmol/L Normal 5.0-19.0 [facility] Comment on above: Performed By: #### 1 [id number], 8994439, 71939319, 1030278, [id number], [id number] #### [facility] (DEFAULT) [address] [place] [address] 18625 AST/SGOT 25 IU/L Normal 15-41 [facility] Comment on above: Performed By: #### 1 [id number], 4053211, 28752266, 1838626, 6507051900, [id number] #### [facility] (DEFAULT) [address] [place] [address] 74774 Bili Total 0.8 mg/dL Normal 0.3-1.2 [facility] Comment on above: Performed By: #### 1 [id number], 9278520, 95379188, 9182002, 6534341387, [id number] #### [facility] (DEFAULT) [address] [place] [address] 36046 Calcium [Mass/Vol] 9.6 mg/dL Normal 8.9-10.3 [facility] Comment on above: Performed By: #### 1 [id number], 4689750, 44619536, 0223275, 6639038444, [id number] #### [facility] (DEFAULT) [address] [place] [address] 56797 Chloride [Moles/Vol] 107 mmol/L Normal 101-111 [facility] Comment on above: Performed By: #### 1 [id number], 2880643, 07918361, 8260381, 7236884215, [id number] #### [facility] (DEFAULT) [address] [place] [address] 67990 CO2 [Moles/Vol] 25 mmol/L Normal 21-32 [facility] Comment on above: Performed By: #### 1 [id number], 0475536, 13187220, 9514387, 3764174436, [id number] #### [facility] (DEFAULT) [address] [place] [address] 94880 Creatinine [Mass/Vol] 0.81 mg/dL Normal 0.60-1.30 [facility] Comment on above: Performed By: #### 1 [id number], 9781259, 92423283, 8496580, [id number], [id number] #### [facility] (DEFAULT) [address] [place] [address] 80040 Globulin (S) [Mass/Vol] 3.0 g/dL Normal 1.5-4.3 [facility] Comment on above: Performed By: #### 1 [id number], 3403157, 02769135, 7726367, 0740650704, [id number] #### [facility] (DEFAULT) [address] [place] [address] 16188 Glucose [Mass/Vol] 83.0 mg/dL Normal 74.0-118.0 [facility] Comment on above: Performed By: #### 1 [id number], 0419307, 04177899, 5848795, 5831918374, [id number] #### [facility] (DEFAULT) [address] [place] [address] 92697 Osmolality [Osmolality] 282 mOsm/L [facility] Comment on above: Performed By: #### 1 [id number], 9990384, 50962376, 2541726, 2136343531, [id number] #### [facility] (DEFAULT) [address] [place] [address] 54279 Potassium [Moles/Vol] 3.6 mmol/L Normal 3.6-5.1 [facility] Comment on above: Performed By: #### 1 [id number], 0855706, 76473446, 2238571, 0536707980, [id number] #### [facility] (DEFAULT) [address] [place] [address] 29510 Protein [Mass/Vol] 7.5 g/dL Normal 6.5-8.1 [facility] Comment on above: Performed By: #### 1 [id number], 9450789, 91242258, 4967382, 3652602174, [id number] #### [facility] (DEFAULT) [address] [place] [address] 61191 Sodium [Moles/Vol] 141.0 mmol/L Normal 136.0-144.0 [facility] Comment on above: Performed By: #### 1 [id number], 0892730, 05150067, 3942190, 8580646362, [id number] #### [facility] (DEFAULT) [address] [place] [address] 99234 Urea nitrogen [Mass/Vol] 18 mg/dL Normal 8-26 [facility] Comment on above: Performed By: #### 1 [id number], 5560115, 64577074, 0982790, 5360423147, [id number] #### [facility] (DEFAULT) [address] [place] [address] 90487 Urea nitrogen/Creatinine [Mass ratio] 22.0 mg/mg High 4.6-16.2 [facility] Comment on above: Performed By: #### 1 [id number], 4461114, 19480880, 4486024, 8234807041, [id number] #### [facility] (DEFAULT) [address] [place] [address] 05180 ED Clinical Summaryon 2019 ED Clinical Summary [facility] - Emergency Department [address] [place] [address] 82777 ED Clinical Summary PERSON INFORMATION Name: KELI ESTRADA Age: 19 Years Sex: FEMALE : 2000 MRN: Acct#: Visit Reason: Medical problem - minor; Vomiting; VOMITING, WEAKNESS Arrival: 08/16/2019 18:56:00 Discharge: 08/16/2019 21:16:00 LOS: 000 02:20 Check In: 08/16/2019 18:56:00 Checkout:08/16/2019 21:16:00 Address: [place] [address] PCP: KO FREEMAN PROVIDER INFORMATION Provider Role [...] % Auto Lymph % 22 % Auto Washington % 6 % Auto Eos % 5.8 % HI Auto Baso % 0.3 % Neut Abs# 7.6 x103/mcL Lymph Abs# 2.6 x103/mcL [place] Abs# 0.6 x103/mcL Eos Abs# 0.7 x103/mcL HI Baso Abs# 0.0 x103/mcL Tube Collected Yes Tube Collected Yes . Notes: Patient symptoms improved with GI cocktail. Patient counseled that her lab work is otherwise unremarkable. She was advised to follow-up with her primary care physician in 3 to 5 days. She is in agreement with this plan.. Impression and Plan Diagnosis Heartburn symptom (RJR23-CE R12, Discharge, Medical) Vomiting (QUS16-GJ R11.10, Discharge, Medical) Plan Condition: Improved, Stable. [...] she is employed, she works at her [employer], she smokes occasionally, she rarely drinks, she [...] Heartburn Follow-Up: With: Address: When: KO FREEMAN [address] [place], [place] [address] Business (1) Within 3 to 5 days DIAGNOSIS: Heartburn symptom; Vomiting Patient Understands: Yes - Patient/family/caregi shanique verbalizes understanding of instructions given Comment: [place] ED Note - Physicianon 2019 ED Note [...] % Auto Lymph % 22 % Auto Washington % 6 % Auto Eos % 5.8 % HI Auto Baso % 0.3 % Neut Abs# 7.6 x103/mcL Lymph Abs# 2.6 x103/mcL [place] Abs# 0.6 x103/mcL Eos Abs# 0.7 x103/mcL HI Baso Abs# 0.0 x103/mcL Tube Collected Yes Tube Collected Yes . Notes: Patient symptoms improved with GI cocktail. Patient counseled that her lab work is otherwise unremarkable. She was advised to follow-up with her primary care physician in 3 to 5 days. She is in agreement with this plan.. Impression and Plan Diagnosis Heartburn symptom (QVV67-TJ R12, Discharge, Medical) Vomiting (GPU58-HH R11.10, Discharge, Medical) Plan Condition: Improved, Stable. [...] on: 08/16/2019 21:12 EST] Cyrus Resendez MD [facility] Note - Physician Patient: KELI ESTRADA [...] she is employed, she works at her [employer], she smokes occasionally, she rarely drinks, she [...] on: 08/16/2019 20:02 EST] Fernando Quiroz DO [place] ED Note-Nursingon 08-16-2019 ED Note-Nursing Patient came [...] No fever. 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 Patient is A/O X4 and placed in room 9. [facility] ED Patient Education Noteon 08-16-2019 ED Patient [...] pharmacies and retail stores. ? Eat bland, yitn-av-kvtkhf foods in small amounts as you are [...] and water are not available, use hand sqe. Make sure that everyone in your household washes their hands frequently. ? Take klfg-dcm-aeiwgqx and prescription medicines only as told by [...] and water are not available, use hand sqe. Make sure that everyone in your household [...] 06/26/2016 Document Revised: 11/08/2018 Document Reviewed: 11/08/2018 [employer] Patient Education ? 2019 [employer] Heartburn Heartburn is a type of [...] vinegar, hot sauces, and barbecue sauce. ? Winston fruit juices and citrus fruits, such as oranges, jorge, and limes. ? Tomato-based foods, such as red sauce, chili, salsa, and pizza with red sauce. ? Fried and fatty foods, such as donuts, cambodian fries, potato chips, and high-fat dressings. ? [...] any changes in your symptoms. ? Take ieww-kff-evgqqgq and prescription medicines only as told by [...] by your health care provider. ? Take pfbp-ybh-xpomqml and prescription medicines only as told by [...] 10/17/2009 Document Revised: 10/31/2018 Document Reviewed: 10/31/2018 [employer] Patient Education ? 2019 [employer] Normal [facility] ED Patient Summaryon 020 ED Patient Summary [facility] - Emergency Department [address] [place] [address] PATIENT DISCHARGE INSTRUCTIONS Patient Information Name: KELI ESTRADA Age: 19 Years Date of : 2000 Reason For Visit: Medical problem - minor; Vomiting; VOMITING, WEAKNESS Arrival Time: 08/16/2019 18:56:00 Primary Care Physician: KO FREEMAN Attending Physician: Fernando Quiroz DO Comment: Visit Diagnosis: Diagnoses This Visit Heartburn symptom (R12) Medical problem - minor ([id number]) Vomiting (R11.10) Vomiting ([id number]) Prescription Information: If you have been given a prescription for narcotics, seek immediate medical attention if you have any difficulty breathing or any sudden status changes such as confusion and sleepiness. If you or anyone you know is experiencing suicidal thoughts, mental health, alcohol and/or drug addiction problems; contact the [facility] 04/01 Crisis Hotline -text 4hope to 741741. If you received any narcotics, sedation, or [...] legal documents With: Address: When: KO FREEMAN [address] [place] [address] [place] [id number] Business (1) Within 3 to 5 days Medication Information: The exam and treatment you received today in the [facility] Emergency Department were for an urgent problem and are not intended as complete care. It is important for you to follow up with a doctor, nurse practitioner, or physician?s social research assistant for ongoing care. If your symptoms become [...] so we can reach you if necessary. [facility] Emergency Department has provided you with a complete list of medications post discharge. Please inform your floor sweeper/provider of your visit and for further instruction [...] pharmacies and retail stores. ? Eat bland, ynsd-er-jlzxhi foods in small amounts as you are [...] and water are not available, use hand sqe. Make sure that everyone in your household washes their hands frequently. ? Take wztx-sbw-xlhwzhi and prescription medicines only as told by [...] and water are not available, use hand sqe. Make sure that everyone in your household [...] 06/26/2016 Document Revised: 11/08/2018 Document Reviewed: 11/08/2018 [employer] Patient Education ? 2019 [employer] Heartburn Heartburn is a type of [...] vinegar, hot sauces, and barbecue sauce. ? Winston fruit juices and citrus fruits, such as oranges, jorge, and limes. ? Tomato-based foods, such as red sauce, chili, salsa, and pizza with red sauce. ? Fried and fatty foods, such as donuts, cambodian fries, potato chips, and high-fat dressings. ? [...] any changes in your symptoms. ? Take synl-mtn-ctlpjsg and prescription medicines only as told by [...] by your health care provider. ? Take yuzy-lzj-nvdovkt and prescription medicines only as told by [...] 10/17/2009 Document Revised: 10/31/2018 Document Reviewed: 10/31/2018 [employer] Patient Education ? 2019 [employer] Viruses or Bacteria What?s got you [...] Disease Control and Prevention February 2014 Normal [facility] Extra Blueon 08-16-2019 Tube Collected Yes [facility] Comment on above: Performed By: #### 1 [id number], 9516154, 15216325, 9570341, [id number], [id number] #### [facility] (DEFAULT) [address] [place] [address] Influenza A&B Rapidon 2019 Influenza A Negative Normal Negative [facility] Comment on above: Performed By: #### 1 [id number] #### [facility] (DEFAULT) [address] [place] [address] Influenza B Negative Normal [facility] Comment on above: Performed By: #### 1 [id number] #### [facility] (DEFAULT) [address] [place] [address] 35219 Internal QC OK? Pass Normal [facility] Comment on above: Performed By: #### 1 [id number] #### [facility] (DEFAULT) [address] [place] [address] 12760 Lipaseon 08-16-2019 Lipase Level 30.0 IU/L Normal 22.0-51.0 [facility] Comment on above: Performed By: #### 1 [id number], [id number], 06159315, 5013525, [id number], [id number] #### [facility] (DEFAULT) [address] [place] [address] 59782 HISTORY PHYSICALon HISTORY PHYSICAL HNO ID: [id number] Author: Jacoby Reyes Service: Pain Management Author [...] DATE: May 03, 2019 TIME: 9:24 AM PAGER:[id number] [facility] HISTORY PHYSICAL HNO ID: [id number] Author: Gloria Mckeon ([place]) Service: ? Author Type: Physician Loom Repairer Type: HANDP Filed: 05/03/2019 9:16 AM Note [...] May 03, 2019 TIME: 9:08 AM PAGER: [facility] OPERATIVE NOon 05-03-2019 OPERATIVE NO HNO ID: [id number] Author: Jacoby Reyes Service: Pain Management Author Type: Physician Type: Operative Report Filed: 05/03/2019 9:43 AM Note Text: Patient Name Medical Record # Keli Estrada [id number] Date of : 2000 Admit Date: May 03, 2019 Sex / Age: female / 18 year old Discharge Date: May 03, 2019 Attending Physician: Jacoby Reyes MD OPERATIVE REPORT DATE OF PROCEDURE: May 03, 2019 LOG ID: [id number] Surgery/Procedure Date: 05/03/2019 Incision/Procedure Start Time: 9:35 AM Incision Close/Procedure End Time: 9:41 AM Surgeon(s)/Procedural ist(s) and Loom Repairer(s): Surgeon(s) and Role: * Jacoby Reyes - [...] Drains: None. Implantable Device: None. Specimen: None. I, Jacoby Reyes MD, performed the entire procedure. ASSESSMENT AND PLAN: Keli Estrada is status post Bilateral pudendal nerve block. She is to return to clinic in 4 weeks for office visit follow up.. Postoperative instructions were given. She voiced understanding, and she was discharged to home in stable condition. Jacoby Reyes MD Pain Management May 03, 2019 [facility] HOSPon 03-21-2019 HOSP Patient:Shanique Estrada MRN: Height:5' [...] entered within the past 30 days Normal [facility] Encounters Encounter Date Encounter Type Care Provider Facility Start: 11-11-2023 End: 11-11-2023 ambulatory DEIDRA REES Not Available Start: 08-27-2023 End: 09-30-2023 ambulatory [place] Start: 09-07-2022 End: 09-07-2022 ambulatory Deidra Rees Facility:[facility] Start: 09-07-2022 End: 09-07-2022 ambulatory MD Ko Freeman Work Phone: [facility] Work Phone: Start: 09-07-2022 End: 09-07-2022 Departed Referred MD Ko Freeman Work Phone: [facility] [place] Work Phone: Start: 09-03-2022 End: 09-03-[address] KO FREEMAN . Facility:[facility] Start: 06-10-2022 End: 06-10-2022 ambulatory NGOC GODFREY Facility:[facility] Start: 03-05-[address] KO FREEMAN . Facili ty:[facility] Start: 02-25-2022 End: 02-25-[address] KO FREEMAN . Facility:[facility] Payers Date Payer Category Payer Self-pay [id number] 2022 Medicaid [id number] 2000 Unknown [id number] 2000 Unknown [id number] 2000 Unknown [id number] 593 2000 Unknown [id number] [id number] 2000 Unknown [id number] [id number] 1959 Unknown [id number] Private Health Insurance [facility] Plan [id number] Unknown [place] [id number] Unknown [id number] Social History Date Type Detail Facility [facility] Work Phone: Start: 2000 Sex Assigned At Female F [facility] Progress note 08-24-2021 Note Date & Type Note Facility 02-04-2021 Note HNO ID: [id number] Author: Alfie Card APRN.PLANTING SUPERVISOR Service: ? Author Type: Nurse Practitioner Type: [...] for abnormal hair growth. 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 Not on it now. 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 Never seen endocrinology Pudendal injection helped with tailbone pain. Has not been back to see Dr Reyes. Had a lot of relief for quite some time. Pelvic floor physical therapy for 1-2 months. No relief. Made it worse. Made better with Ibuprofen. [place] - sometimes pain afterwards. Makes it feel [...] Consult to pain management to see Dr Reyes again Flexeril at bedtime Baclofen suppository Follow up as needed Alfie Card APRN.[place] Medical Decision Making: Problems: Low: Stable chronic illness Data: Unique source(s) for external note(s) reviewed: 1 Risk: Low: Low risk from testing/treatment Moderate: Drug management Medical Decision Making Level: 3 - Low [facility] Evaluation note Note Date & Type Note Facility Evaluation note No assessment information availa [facility] Work Phone: Summary Purpose Family [...] section and content) DATE CREATED AUTHOR 05/03/2019 [facility] DATE CREATED AUTHOR AUTHOR'S ORGANIZ ATION 01/05/2020 [facility] DATE CREATED AUTHOR AUTHOR'S ORGANIZ ATION 07/11/2021 [facility] DATE CREATED AUTHOR AUTHOR'S ORGANIZ ATION 09/06/2022 [facility] DATE CREATED AUTHOR AUTHOR'S ORGANIZ ATION 09/18/2022 [facility] DATE CREATED AUTHOR AUTHOR'S ORGANIZ ATION 11/12/2023 [facility] DATE CREATED AUTHOR AUTHOR'S ORGANIZ ATION 01/05/2024 [facility] Teams (unrecognized sec tion and content) Team [...] BE BASED ON THE PRIMARY CLINICAL RECORDS. [facility] [employer] provides no warranty or guarantee of the accuracy or completeness of information in this document.
== END 2024-02-24 10:44 | disposition home or self-care (01) ==
LOC: RAD 10:45
PROVIDERS: Family Provider Obstetrics & Gynecology; PCP Family Medicine; Visit Provider Family Medicine
DX: M23.90 Unspecified internal derangement of unspecified knee (principal)
CPT/HCPCS: 73562

== ENCOUNTER 2024-04-04 08:47 | Outpatient (OUT) | payer MEDICAID, SELFPAY ==
--- NOTE | 2024-04-04 08:54 | MR_ITS ---
The [address] [address] Patient Name: CARMENZA SLADE MRN: TBH:[id number] date: 2000 Sex: F Assigned Patient Location: [facility] Current Patient Location: [facility] Accession/Order Number: [id number] Exam Date: 04/04/2024 09:02 Report Date: 04/04/2024 15:44 At the request of: KO HOFFMAN Procedure: MR knee RT wo con EXAMINATION: MR knee RT wo con HISTORY: Internal Derangement Of Knee COMPARISON: No relevant comparison available. TECHNIQUE: A complete multi-planar MRI was performed. FINDINGS: MEDIAL COMPARTMENT MEDIAL MENISCUS: No visible tear or significant degeneration. CARTILAGE: No visible defect. BONES: No marrow pathology, fracture, or significant arthropathy. MCL AND MEDIAL CAPSULE: Normal medial collateral ligament and medial capsule. LATERAL COMPARTMENT LATERAL MENISCUS: Linear signal abnormality identified along the medial aspect of the meniscus best seen on coronal image 129 and 130 with an associated meniscal cyst measuring 1.5 x 0.8 cm coronal image 127 and 1.5 cm sagittal image 18. CARTILAGE: No visible defect. BONES: No marrow pathology, fracture, or significant arthropathy. LCL/POSTEROLAT COMPLEX: Normal lateral collateral ligament, fascicles, lateral capsule and ligaments. ANTERIOR COMPARTMENT PATELLA: No marrow pathology, fracture, or significant arthropathy. CARTILAGE: No visible defect. TENDONS: Normal. EFFUSION: None. No synovitis or loose bodies. ACL: Normal appearing ligament. PCL: Normal appearing ligament. MENISCOFEMORAL: Normal meniscofemoral ligaments. OTHER: Negative. MR/MR knee RT wo con IMPRESSION: Small horizontal tear of the anterior medial aspect of the lateral meniscus with associated meniscal cyst Electronically authenticated by: PEDRO NATHAN Date: 04/04/2024 15:44
--- OUTSIDE RECORDS SUMMARY | 2024-04-04 09:08 | XMS_ITS | CCD ---
Author Organization [facility] Care Team Providers Care Radio Repair Teacher Name Role Phone DALTON ., DR [...] Unavailable MD Ko Freeman Primary Care Provider [phone] MD Deidra Rees Attending Provider Deidra Rees Admitting Unavailable Deidra Rees Attending Unavailable Ko Freeman Primary Care Unavailable DEIDRA REES Attending Unavailable Allergies Allergy Classification Reported Allergen(s) Allergy Type Date of Onset Reaction(s) Facility (1 source) Amoxicillin Drug Allergy [address] [facility] Repository (1 source) Clarithromycin Drug Allergy [address] [facility] Rep[facility] (1 source) Phentolamine Drug Allergy [address] [facility] Rep[facility] (1 source) Sulfamethoxazole / Trimethoprim Drug Allergy [address] [facility] Repository (2 sources) Clarithromycin; Translations: [clarithromycin] Drug Allergy 8 [facility] (2 sources) Sulfamethoxazole; Translations: [sulfamethoxazole] Drug Allergy 8 [facility] (2 sources) Tobramycin; Translations: [tobramycin] Drug Allergy 8 [facility] (2 sources) Trimethoprim; Translations: [trimethoprim] Drug Allergy 8 [facility] Medications Current Medications Medication Drug [...] every four to six hours Hydrocodone-Acetami nophen ([place]) 5-325 mg tablet Discontinued 1 TAB PO [...] 02-25-2022 Episodic Other aftercare (1 source) 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; Translations: [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 THERAPY] Onset: 02-27-2022 Episodic Pleurisy; pneumothorax; pulmonary collapse (1 source) Pleurisy; Translations: [PLEURISY] Onset: 02-27-2022 Episodic Unclassified (1 source) CONTACT W/AND (SUSP) EXPOS COVID-19; Translations: [CONTACT W/AND (SUSP) EXPOS COVID-19] Onset: 09-03-2022 Unclassified (1 source) COUGH, UNSPECIFIED; Translations: [COUGH, UNSPECIFIED] Onset: 06-10-2022 Results Test Name Value Interpretation Reference Range Facil ity Nilson 09-07-2022 L - -------- Specimen: [id number] Received: 09/07/22 Status: SANJUANITA Martinez Num: [id number] Spec Type: Surgical Subm Dr: DEIDRA REES MD Tissues: A Uterus w/ or w/o tubes ovaries except neoplastic or prolap (CERVIX, MARÍA FT Procedures: HE/8, Gross/Micro L5 -------- Age/ Patient Sex Location Account Attending Physician -------- Keli Estrada 22 [place] [id number] DEIDRA REES MD -------- SPEC NUM: [id number] RECD: 09/07/22 STATUS: SANJUANITA HENRIQUEZ NUM: [id number] NESS: 09/07/22- [facility] DR: DEIDRA REES MD ENTERED: 09/07/[address] [facility] [address]: Brando [facility] SPEC TYPE: Surgical DEPT: S [...] smooth-walled, clear fluid-filled cyst is -------- Specimen: [id number] Received: 09/07/22 Status: SANJUANITA Henriquez Num: [id number] Spec Type: Surgical Subm Dr: DEIDRA REES MD Tissues: A Uterus w/ or w/o tubes ovaries except neoplastic or prolap (CERVIX, MARÍA FT Procedures: HE/8, Gross/Micro L5 -------- Patient: Keli Estrada [id number] (Continued) -------- Specimen: [id number] Received: 09/07/22 (Continued) Gross Description (Continued) Signed (signature on file) Julia Ballesteros MD 09/08/22 1316 -------- Specimen: [id number] Received: 09/07/22 Status: SANJUANITA Henriquez Num: [id number] Spec Type: Surgical Subm Dr: DEIDRA REES MD Tissues: A Uterus w/ or w/o tubes ovaries except neoplastic or prolap (CERVIX, MARÍA FT Procedures: HE/Padmini, Gross/Micro L5 -------- Patient: Keli Estrada [id number] (Continued) -------- Specimen: [id number] Received: 09/07/22 (Continued) Gross Description (Continued) identified in the attached fat pad. The fallopian tube has a pinpoint lumen on cut section. Procurement Director sections are submitted in 8 cassettes as [...] support the above pathologic diagnosis. CPT Codes 63314 -------- (more content not included)... Normal [facility] Covid-19 PCR ([facility])on 08-13 SARS-CoV-2 (COVID-19) RNA KEKE+probe Ql (Unsp spec) Not detected Normal NOT DETECTED [facility] Comment on above: Result Comment: This test is not yet approved or cleared by the [place] FDA. When there are no FDA-approved or cleared tests available, and other criteria are met, FDA can make tests available under an emergency access mechanism called an Emergency Use Authorization (EUA). The EUA for this test is supported by the Pasteurizer of Health and Human Service's (HHS's) declaration [...] SARS-CoV-2. Performed By: #### C VDTB #### [facility] [address] [place] [address] Dr. Ning Leonardo Covid-19 PCR ([facility])on 05-15 SARS-CoV-2 (COVID-19) RNA KEKE+probe Ql (Unsp spec) Not detected Normal NOT DETECTED [facility] Comment on above: Result Comment: [...] for this test is supported by the Pasteurizer of Health and Human Service's declaration that [...] used). Performed By: #### C VDTB #### [facility] [address] [place] [address] Dr. Ning Leonardo INFLUENZA A AND B AGon 06-[facility] SEE BELOW Normal [facility] Comment on above: Result Comment: Nega tive for Flu A protein angiten. Infection due to Flu A cannot be ruled out. Flu A angiten in the sample may be below the detection limit of the test. Performed By: #### I NFLUAB #### [facility] [address] [place] [address] Dr. Ning Leonardo INFLUBNEG SEE BELOW Normal [facility] Comment on above: Result Comment: Nega tive for Flu B protein antigen. Infection due to Flu B cannot be ruled out. Flu B antigen in the sample may be below the detection limit of the test. Performed By: #### I NFLUAB #### [facility] [address] [place] [address] Dr. Ning Leonardo INFLUENZA A AG Negative Normal NEGATIVE SEE COMMENT [facility] Comment on above: Performed By: #### I NFLUAB #### [facility] [address] [place] [address] Dr. Ning Leoanrdo INFLUENZA B AG Negative Normal NEGATIVE SEE COMMENT [facility] Comment on above: Performed By: #### I NFLUAB #### [facility] [address] [place] [address] Dr. Ning Leonardo CBC AUTO DIFFon 02-25-2022 BASO # 0.0 103/ul Normal 0.0-0.1 [facility] Comment on above: Performed By: #### C BC #### [facility] [address] [place] [address] Dr. Ning Leonardo Basophils/100 WBC (Bld) 0.8 % Normal 0.2-2.[address] [facility] Comment on above: Performed By: #### C BC #### [facility] [address] [place] [address] Dr. Ning Leonardo EO # 0.3 103/ul Normal 0.0-0.[address] [facility] Comment on above: Performed By: #### C BC #### [facility] [address] [place] [address] Dr. Ning Leonardo Eosinophils/100 WBC (Bld) 6.2 % Normal 0.9-7.0 [facility] Comment on above: Performed By: #### C BC #### [facility] [address] [place] [address] Dr. Ning Leonardo Erythrocyte distribution width (RBC) [Ratio] 13.1 % Normal 11.0-15.0 [facility] Comment on above: Performed By: #### C BC #### [facility] [address] [place] [address] Dr. Ning Leonardo Hematocrit (Bld) [Volume fraction] 39.7 % Normal 36.0-48.0 [facility] Comment on above: Performed By: #### C BC #### [facility] [address] [place] [address] Dr. Ning Leonardo Hemoglobin (Bld) [Mass/Vol] 13.3 g/dL Normal 12.0-16.0 [facility] Comment on above: Performed By: #### C BC #### [facility] [address] [place] [address] Dr. Ning Leonardo IG # 0.03 10e3/ul Normal 0.00-0.03 [facility] Comment on above: Performed By: #### C BC #### [facility] [address] [place] [address] Dr. Ning Leonardo IG % 0.6 % Critically high 0.0-0.5 [facility] Comment on above: Performed By: #### C BC #### [facility] [address] [place] [address] Dr. Ning Leonardo LYMPH # 1.0 103/ul Critically low 1.2-3.8 [facility] Comment on above: Performed By: #### C BC #### [facility] [address] [place] [address] Dr. Ning Leonardo Lymphocytes/100 WBC (Bld) 18.8 % Critically low 20.5-60.0 [facility] Comment on above: Performed By: #### C BC #### [facility] [address] [place] [address] Dr. Ning Leonardo MANUAL DIFF REQ NO Normal [facility] Comment on above: Performed By: #### C BC #### [facility] [address] [place] [address] Dr. Ning Leonardo MCH (RBC) [Entitic mass] 32.5 pg Normal 26.7-34.0 [facility] Comment on above: Performed By: #### C BC #### [facility] [address] [place] [address] Dr. Ning Leonardo MCHC (RBC) [Mass/Vol] 33.5 g/dL Normal 29.9-35.2 [facility] Comment on above: Performed By: #### C BC #### [facility] [address] [place] [address] Dr. Ning Leonardo MCV (RBC) [Entitic vol] 97.1 fL Normal 81.0-99.0 [facility] Comment on above: Performed By: #### C BC #### [facility] [address] [place] [address] Dr. Ning Leonardo MONO # 0.6 103/ul Normal 0.3-0.8 [facility] Comment on above: Performed By: #### C BC #### [facility] [address] [place] [address] Dr. Ning Leonardo Monocytes/100 WBC (Bld) 11.6 % Normal 1.7-12.0 [facility] Comment on above: Performed By: #### C BC #### [facility] [address] [place] [address] Dr. Ning Leonardo NEUT # 3.2 103/ul Normal 1.4-6.5 [facility] Comment on above: Performed By: #### C BC #### [facility] [address] [place] [address] Dr. Ning Leonardo Neutrophils/100 WBC (Bld) 62.0 % Normal 43.0-75.[address] [facility] Comment on above: Performed By: #### C BC #### [facility] [address] [place] [address] Dr. Ning Leonardo Platelet mean volume (Bld) [Entitic vol] 11.1 fL Normal 9.5-13.5 [facility] Comment on above: Performed By: #### C BC #### [facility] [address] [address] [address] Ning Leonardo PLT 143 103/ul Critically low 150-450 [facility] Comment on above: Performed By: #### C BC #### [facility] [address] [address] [address] Ning Leonardo RBC 4.09 106/ul Critically low 4.20-5.40 [facility] Comment on above: Performed By: #### C BC #### [facility] [address] [address] [address] Ning Leonardo WBC 5.2 103/ul Normal 4.0-11.0 [facility] Comment on above: Performed By: #### C BC #### [facility] [address] [place] [address] Dr. Ning Leonardo CTA CHEST WO W [...] NÉSTOR JOHNSTON Date: 2022-02-25 17:[address] [facility] PROF CHEM 8 (BAS METB)on Anion gap [Moles/Vol] 5.6 mmol/L Normal [facility] Comment on above: Performed By: #### B MP, HSTROPN #### [facility] [address] [place] [address] Dr. Ning Leonardo Calcium [Mass/Vol] 8.6 mg/dL Normal 8.5-10.1 [facility] Comment on above: Performed By: #### B ELIS, HSTROPN #### [facility] [address] [address] [address] Ning Leonardo Chloride [Moles/Vol] 106 mmol/L Normal 98-[address] [facility] Comment on above: Performed By: #### B ELIS, HSTROPN #### [facility] [address] [address] [address] Ning Leonardo CO2 [Moles/Vol] 28.9 mmol/L Normal 21.0-32.[address] [facility] Comment on above: Performed By: #### B ELIS, HSTROPN #### [facility] [address] [place] [address] Dr. Ning Leonardo Creatinine [Mass/Vol] 0.60 mg/dL Normal 0.55-1.02 [facility] Comment on above: Performed By: #### B ELIS, HSTROPN #### [facility] [address] [place] [address] Dr. Ning Leonardo EGFR-AF KENYAN >60 Normal >=[address] [facility] Comment on above: Performed By: #### B ELIS, HSTROPN #### [facility] [address] [place] [address] Dr. Ning Leonardo EGFR-NON AF KENYAN >60 Normal >=[address] [facility] Comment on above: Performed By: #### B ELIS, HSTROPN #### [facility] [address] [place] [address] Dr. Ning Leonardo Glucose [Mass/Vol] 79 mg/dL Normal 74-106 [facility] Comment on above: Performed By: #### B ELIS, HSTROPN #### [facility] [address] [address] [address] Ning Leonardo Potassium [Moles/Vol] 4.5 mmol/L Normal 3.5-5.[address] [facility] Comment on above: Result Comment: spec imen slightly hemolyzed Performed By: #### B MP, HSTROPN #### [facility] [address] [address] [address] Ning Leonardo Sodium [Moles/Vol] 136 mmol/L Normal 136-145 [facility] Comment on above: Performed By: #### B MP, HSTROPN #### [facility] [address] [place] [address] Dr. Ning Leonardo Urea nitrogen [Mass/Vol] 12.0 mg/dL Normal 7.0-18.0 [facility] Comment on above: Performed By: #### B MP, HSTROPN #### [facility] [address] [address] [address] Ning Leonardo Urea nitrogen/Creatinine [Mass ratio] 20.0 mg/mg Normal [facility] Comment on above: Performed By: #### B MP, HSTROPN #### [facility] [address] [place] [address] Dr. Ning Leonardo TROPONIN, HIGH SENSITIVITYon 02-25-2022 HSTROP 4.8 pg/mL Normal 4.0-51.3 [facility] Comment on above: Result Comment: CUT- OFF POINTS HAVE BEEN ESTABLISHED BASED ON THE FOURTH UNIVERSAL DEFINITIONS OF MYOCARDIAL INFARCTION. THE UPPER REFERENCE LIMIT (URL) OF TROPONIN, DEFINED THE 99TH PERCENTILE OF cTnI DISTRIBUTION IN A REFERENCE POPULATION, HAS BEEN CONFIRMED THE DECISION THRESHOLD FOR AR DIAGNOSIS. Performed By: #### B MP, HSTROPN #### [facility] [address] [place] [address] Dr. Ning Palmer 02-18-2021 [facility]) KELI ESTRADA ([id number]) 2000 F Date Time Provider Department 02/18/21 JACOBY REYES [facility] During your visit today, we recorded the following information about you: Lavern Rob Bethany 02/18/2021 9:02 AM Signed Called patient and left a voice message to call the office back at [phone] option 3. Dear Keli This is a follow up phone call regarding your appointment with Dr. Reyes At [facility]. Your appointment time is 2arrive at [...] referring physician. 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 She has not been seen since 05/2019 with Gi George and 04/[address] Reyes. Mytrle Child 02/12/2021 4:23 PM Signed Spoke to [...] Encounter Status:Closed by MYRTLE CHILD on 02/12/21 [facility] CNOVon 02-04-2021 [facility]OV [facility] KELI ESTRADA ([id number]) 2000 F Date Time Provider Department 02/04/21 2:00 PM ALFIE CARD [facility] During your visit today, we recorded the following information about you: Blood pressure Weight Height 121/69 89.8 kg 1.626 m Alfie Card APRN.NANOSYSTEMS ENGINEER 03/03/2021 10:53 PM Signed CHRONIC PELVIC PAIN [...] for abnormal hair growth. 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 Not on it now. 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 Never seen endocrinology Pudendal injection helped with tailbone pain. Has not been back to see Dr Reyes. Had a lot of relief for quite some time. Pelvic floor physical therapy for 1-2 months. No relief. Made it worse. Made better with Ibuprofen. [place] - sometimes pain afterwards. 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 - baclofen vaginal sup (more content not included)... Normal [facility] Coding Summaryon 12-29-2019 Coding Summary CODING DATE: 12/29/2019 [facility] STATUS: Home PAYOR: Medicaid HMO ADMIT [...] Queta Gonzalez Date Saved: 12/29/2019 05:00 pm [facility] Coding Summary CODING DATE: 12/29/2019 [facility] STATUS: Home PAYOR: Medicaid HMO ADMIT [...] Queta Gonzalez Date Saved: 12/29/2019 04:59 pm [facility] .Auto Diff 1on 12-21-2019 Auto [place] % 6 % Normal 1-12 [facility] Comment on above: Performed By: #### 1 [id number], [id number], 6162841, 28810402, [id number] ####[facility] (DEFAULT)[address] [place] [address] Baso Abs# 0.0 x10 Normal 0.0-0.2 [facility] Comment on above: Performed By: #### 1 [id number], [id number], 4675615, 41454497, [id number] ####[facility] (DEFAULT)[address] [place] [address] Basophils/100 WBC (Bld) 0.3 % Normal 0.2-2.0 [facility] Comment on above: Performed By: #### 1 [id number], [id number], 3877011, 36386534, [id number] ####[facility] (DEFAULT)[address] [place] [address] Eos Abs# 0.4 x10 Normal 0.0-0.4 [facility] Comment on above: Performed By: #### 1 [id number], [id number], 7261712, 07899037, [id number] ####[facility] (DEFAULT)[address] [place] [address] Eosinophils/100 WBC (Bld) 3.3 % Normal 0.9-4.0 [facility] Comment on above: Performed By: #### 1 [id number], 7489894762, 5629799, 19534867, [id number] ####[facility] (DEFAULT)[address] [place] [address] Lymphocytes (Bld) [#/Vol] 1.2 x10 Low 1.3-2.9 [facility] Comment on above: Performed By: #### 1 [id number], [id number], 2480130, 84411578, [id number] ####[facility] (DEFAULT)[address] [place] [address] Lymphocytes/100 WBC (Bld) 9 % Low 14-48 [facility] Comment on above: Performed By: #### 1 [id number], 6674279081, 2485785, 77860509, 6069032842 ####[facility] (DEFAULT)[address] [place] [address] [place] Abs# 0.8 x10 Normal 0.0-0.8 [facility] Comment on above: Performed By: #### 1 [id number], 2778426005, 3257298, 62980144, [id number] ####[facility] (DEFAULT)[address] [place] [address] Neut Abs# 10.5 x10 High 1.5-9.2 [facility] Comment on above: Performed By: #### 1 [id number], 8960144596, 8906930, 29504699, [id number] ####[facility] (DEFAULT)[address] [place] [address] Neutrophils/100 WBC (Bld) 81 % Normal 44-88 [facility] Comment on above: Performed By: #### 1 [id number], 6568172513, 0717254, 20435305, 2032358763 ####[facility] (DEFAULT)[address] [place] [address] CBC w/ Auto Diffon 0 Erythrocyte distribution width (RBC) [Ratio] 12.6 % Normal 11.5-15.0 [facility] Comment on above: Performed By: #### 1 [id number], 9813521378, 6217941, 39647088, 9300673929 ####[facility] (DEFAULT)[address] [place] [address] Hematocrit (Bld) [Volume fraction] 43.2 % High 33.7-40.4 [facility] Comment on above: Performed By: #### 1 [id number], 5133517629, 4652235, 81539737, 3898928670 ####[facility] (DEFAULT)[address] [place] [address] Hemoglobin (Bld) [Mass/Vol] 14.7 g/dL Normal 11.3-15.9 [facility] Comment on above: Performed By: #### 1 [id number], 4290137952, 6769135, 82157296, 2256954432 ####[facility] (DEFAULT)[address] [place] [address] Man Diff? Auto Normal [facility] Comment on above: Performed By: #### 1 [id number], 9988267251, 9239595, 95775590, 5053020536 ####[facility] (DEFAULT)[address] [place] [address] MCH (RBC) [Entitic mass] 32 pg Normal 24-34 [facility] Comment on above: Performed By: #### 1 [id number], 3621257457, 4790234, 10549181, [id number] ####[facility] (DEFAULT)[address] [place] [address] MCHC (RBC) [Mass/Vol] 34 g/dL Normal 26-37 [facility] Comment on above: Performed By: #### 1 [id number], 6843412584, 6440253, 46357894, 8117655306 ####[facility] (DEFAULT)[address] [place] [address] MCV (RBC) [Entitic vol] 92 fL Normal 81-100 [facility] Comment on above: Performed By: #### 1 [id number], 0050421121, 6667311, 36631205, 3847494332 ####[facility] (DEFAULT)[address] [place] [address] Platelet mean volume (Bld) [Entitic vol] 10.2 fL Normal 6.3-10.2 [facility] Comment on above: Performed By: #### 1 [id number], 9837719393, 1545985, 07943524, 2398770734 ####[facility] (DEFAULT)[address] [place] [address] Platelets (Bld) [#/Vol] 208 x10 Normal 138-427 [facility] Comment on above: Performed By: #### 1 [id number], 5745853489, 2966867, 88474871, [id number] ####[facility] (DEFAULT)[address] [place] [address] RBC (Bld) [#/Vol] 4.67 x10 Normal 3.70-5.30 [facility] Comment on above: Performed By: #### 1 [id number], 7035052113, 3577464, 45477515, 3893531509 ####[facility] (DEFAULT)[address] [place] [address] WBC (Bld) [#/Vol] 12.9 x10 [facility] Comment on above: Performed By: #### 1 [id number], 3218764227, 8911152, 06798006, [id number] ####[facility] (DEFAULT)[address] [place] [address] CMP Standardon 12-21-2019 eGFR Non AA >60 [facility] Comment on above: Performed By: #### 1 [id number], 9309051, 81199009, 7552670, 2101894831, [id number] #### [facility] (DEFAULT) [address] [place] [address] eGFR AA >60 [facility] Comment on above: Result Comment: Quality Process Lead angie Kidney disease could be indicated at eGFRs of less than 60 ml/min/1.73m2. Kidney Failure is indicated at less than 15 ml/min/1.73m2 Performed By: #### 1 [id number], 5106262, 42847192, 0333140, 1628738517, [id number] #### [facility] (DEFAULT) [address] [place] [address] Albumin [Mass/Vol] 3.9 g/dL Normal 3.5-5.0 [facility] Comment on above: Performed By: #### 1 [id number], 8467512, 34091467, 9821623, 8169486231, [id number] #### [facility] (DEFAULT) [address] [place] [address] Albumin/Globulin [Mass ratio] 1.3 {ratio} Low 1.4-2.6 [facility] Comment on above: Performed By: #### 1 [id number], 7242780, 56104398, 4475602, [id number], [id number] #### [facility] (DEFAULT) [address] [place] [address] 61111 Alk Phos 54 IU/L Normal 32-91 [facility] Comment on above: Performed By: #### 1 [id number], 6849914, 75666224, 2268501, 7196044187, 4966803613 #### [facility] (DEFAULT) [address] [place] [address] ALT/SGPT 23.0 IU/L Normal 14.0-54.0 [facility] Comment on above: Performed By: #### 1 [id number], 8341509, 11525932, 7886375, 7916989822, 3515817862 #### [facility] (DEFAULT) [address] [place] [address] 53840 Anion gap [Moles/Vol] 10.0 mmol/L Normal 5.0-19.0 [facility] Comment on above: Performed By: #### 1 [id number], 7227915, 45124877, 9602724, 1693764170, 2713598426 #### [facility] (DEFAULT) [address] [place] [address] 69073 AST/SGOT 17 IU/L Normal 15-41 [facility] Comment on above: Performed By: #### 1 305311405, 0105755, 94145130, 3513120, 3267379309, 0624801019 #### [facility] (DEFAULT) [address] [place] [address] 96241 Bili Total 0.5 mg/dL Normal 0.3-1.2 [facility] Comment on above: Performed By: #### 1 294337086, 3551854, 32293160, 1068954, 4776625206, 4168222085 #### [facility] (DEFAULT) [address] [place] [address] 04805 Calcium [Mass/Vol] 8.6 mg/dL Low 8.9-10.3 [facility] Comment on above: Performed By: #### 1 270323196, 1450865, 35263395, 5849777, 9079621952, 6105977579 #### [facility] (DEFAULT) [address] [place] [address] 39286 Chloride [Moles/Vol] 107 mmol/L Normal 101-111 [facility] Comment on above: Performed By: #### 1 [id number], 3129495, 61731272, 7972805, 6613529426, 9426755354 #### [facility] (DEFAULT) [address] [place] [address] 45686 CO2 [Moles/Vol] 23 mmol/L Normal 21-32 [facility] Comment on above: Performed By: #### 1 721441959, 1424361, 05732744, 4079739, 3924614610, 4532347783 #### [facility] (DEFAULT) [address] [place] [address] 09787 Creatinine [Mass/Vol] 0.85 mg/dL Normal 0.60-1.30 [facility] Comment on above: Performed By: #### 1 243635869, 4326636, 86447148, 3423324, 8226456131, 7552383854 #### [facility] (DEFAULT) [address] [place] [address] 44356 Globulin (S) [Mass/Vol] 2.9 g/dL Normal 1.5-4.3 [facility] Comment on above: Performed By: #### 1 380367582, 7161899, 17876133, 0414293, 1075546939, 0908908050 #### [facility] (DEFAULT) [address] [place] [address] 46294 Glucose [Mass/Vol] 94.0 mg/dL Normal 74.0-118.0 [facility] Comment on above: Performed By: #### 1 564131376, 4080691, 92070364, 5274620, 7420142193, 2736598356 #### [facility] (DEFAULT) [address] [place] [address] 27713 Osmolality [Osmolality] 274 mOsm/L [facility] Comment on above: Performed By: #### 1 468706084, 3415984, 65700716, 9673087, 6227741669, 2323280551 #### [facility] (DEFAULT) [address] [place] [address] 34675 Potassium [Moles/Vol] 3.4 mmol/L Low 3.6-5.1 [facility] Comment on above: Performed By: #### 1 227290823, 0713208, 75543678, 8619555, 4910087204, 2430994971 #### [facility] (DEFAULT) [address] [place] [address] 51085 Protein [Mass/Vol] 6.8 g/dL Normal 6.5-8.1 [facility] Comment on above: Performed By: #### 1 067969861, 3198404, 63767708, 2903840, 3642604530, 2354465285 #### [facility] (DEFAULT) [address] [place] [address] 47358 Sodium [Moles/Vol] 137.0 mmol/L Normal 136.0-144.0 [facility] Comment on above: Performed By: #### 1 016244614, 9536363, 27629836, 0172445, 3995116863, 8506767562 #### [facility] (DEFAULT) [address] [place] [address] 28110 Urea nitrogen [Mass/Vol] 14 mg/dL Normal 8-26 [facility] Comment on above: Performed By: #### 1 253899012, 5534709, 47708465, 0947915, 6032303065, 4884438157 #### [facility] (DEFAULT) [address] [place] [address] 31647 Urea nitrogen/Creatinine [Mass ratio] 16.0 mg/mg Normal 4.6-16.2 [facility] Comment on above: Performed By: #### 1 488273662, 1963564, 29627599, 6858298, 4138687148, 5289231053 #### [facility] (DEFAULT) [address] [place] [address] 81228 ED Clinical Summaryon 2019 ED Clinical Summary [facility] - Emergency Department [address] [place] [address] 12532 ED Clinical Summary PERSON INFORMATION Name: KELI ESTRADA Age: 19 Years Sex: FEMALE : 2000 MRN: Acct#: Visit Reason: Diarrhea; Headache; Diarrhea; Headache - Recurrent; HEADACHE, BODY ACHES Arrival: 12/21/2019 00:29:46 Discharge: 12/21/2019 02:29:00 LOS: 000 02:00 Check In: 12/21/2019 00:29:46 Checkout:12/21/2019 02:29:00 Address: [place] [address] PCP: KO FREEMAN PROVIDER INFORMATION Provider Role Assigned Unassigned Cyrus Resendez MD ED Provider 12/21/2019 00:30:56 Ayla Regalado BANK GUARD Nurse 12/21/2019 00:47:16 VITALS INFORMATION Vital Sign [...] Home PATIENT EDUCATION INFORMATION Instructions: Migraine Headache, Vftn-mq-Pemu; Viral Gastroenteritis, Adult, Wyyv-ee-Evrd Follow-Up: With: Address: When: KO FREEMAN [address] [place] [address], [facility] [place] [phone] Business (1) Within 3 to 5 days DIAGNOSIS: Gastroenteritis; Headache Patient Understands: Yes - Patient/family/caregi shanique verbalizes understanding of instructions given Comment: [facility] ED Note - Physicianon 2019 ED Note [...] Auto Lymph % 9 % LOW Auto [place] % 6 % Auto Eos % 3.3 % Auto Baso % 0.3 % Neut Abs# 10.5 x103/mcL HI Lymph Abs# 1.2 x103/mcL LOW [place] Abs# 0.8 x103/mcL Eos Abs# 0.4 x103/mcL Baso Abs# 0.0 x103/mcL Tube Collected Yes Tube Collected Yes . Notes: Patient symptoms improved with IV hydration, IV Benadryl, Reglan and Zofran.. Impression and Plan Diagnosis Gastroenteritis ([id number]-QW K52.9, Discharge, Medical) Headache (ZJB78-IY R51, Discharge, Medical) Plan Condition: Improved, Stable. Disposition: Discharged: to home. Patient was given the following educational materials: Viral Gastroenteritis, Adult, Agms-bt-Jcao, Migraine Headache, Sbot-vv-Frmp, Migraine Headache, Hqxr-vi-Xcpj, Viral Gastroenteritis, Adult, Gzdd-py-Wyeb. Follow up with: KO FREEMAN Within 3 to 5 days. Counseled: Patient, Regarding diagnosis, Regarding diagnostic results, Regarding treatment plan, Patient indicated understanding of instructions. [Electronically Signed on: 12/21/2019 07:54 EDT] Cyrus Resendez MD [Verified on: 12/21/2019 07:54 EDT] Cyrus Resendez MD [facility] ED Note-Nursingon 12-21-2019 ED Note-Nursing patient arrived [...] lot today and may also be dehydrated. [facility] ED Patient Education Noteon 12-21-2019 ED Patient [...] ? Low-calorie sports drinks. ? Eat bland, bnms-gh-axgwkl foods in small amounts as you are able, such as: ? Bananas. ? Applesauce. ? Rice. ? Low-fat (lean) meats. ? Broadway. ? Crackers. ? Avoid fluids that have a lot of sugar or caffeine in them. ? Avoid alcohol. ? Avoid spicy or fatty foods. General instructions ? Drink enough fluid to keep your pee (urine) clear or pale yellow. ? Wash your hands often. If you cannot use soap and water, use hand chartered wealth manager. ? Make sure that all people in your home wash their hands well and often. ? Rest at home while you get better. ? Take sonb-mno-vfzrnuz and prescription medicines only as told by [...] 11/16/2008 Document Revised: 02/22/2019 Document Reviewed: 02/04/2016 [employer] Patient Education ? 2018 [employer]. Neurology Migraine Headache Use Tylenol, ibuprofen and [...] these instructions at home: Medicines ? Take hrnq-hgt-ygfrbsd and prescription medicines only as told by your doctor. ? Do not drive or use heavy machinery while taking prescription pain medicine. ? To prevent or treat constipation while you are taking prescription pain medicine, your doctor may recommend that you: ? Drink enough fluid to keep your pee (urine) clear or pale yellow. ? Take mkhf-qou-cldrdep or prescription medicines. ? Eat foods that [...] 03/09/2009 Document Revised: 02/22/2019 Document Reviewed: 11/16/2016 [employer] Patient Education ? 2019 [employer]. Normal [facility] ED Patient Summaryon 020 ED Patient Summary [facility] - Emergency Department [address] [id number] PATIENT DISCHARGE INSTRUCTIONS Patient Information Name: KELI ESTRADA Age: 19 Years Date of : 2000 Reason For Visit: Diarrhea; Headache; Diarrhea; Headache - Recurrent; HEADACHE, BODY ACHES Arrival Time: 12/21/2019 00:29:46 Primary Care Physician: KO FREEMAN Attending Physician: Cyrus Resendez MD Comment: Visit Diagnosis: Diagnoses This Visit Diarrhea ([id number]) Diarrhea ([id number]) Gastroenteritis (K52.9) Headache (R51) Headache ([id number]) Headache - Recurrent ([id number]) Prescription Information: If you have been given a prescription for narcotics, seek immediate medical attention if you have any difficulty breathing or any sudden status changes such as confusion and sleepiness. If you or anyone you know is experiencing suicidal thoughts, mental health, alcohol and/or drug addiction problems; contact the [facility] 04/01 Crisis Hotline -Text 4HZPW [place] 631798. If you received any narcotics, sedation, or [...] legal documents With: Address: When: KO FREEMAN [address] [place] [address] [place] [phone] Business (1) Within 3 to 5 days Medication Information: The exam and treatment you received today in the [facility] Department were for an urgent problem and are not intended as complete care. It is important for you to follow up with a doctor, nurse practitioner, or physician?s general assistant for ongoing care. If your symptoms [...] so we can reach you if necessary. [facility] Emergency Department has provided you with a complete list of medications post discharge. Please inform your grout machine operator/provider of your visit and for further instruction [...] these instructions at home: Medicines ? Take yaty-ybe-iwjchhd and prescription medicines only as told by your doctor. ? Do not drive or use heavy machinery while taking prescription pain medicine. ? To prevent or treat constipation while you are taking prescription pain medicine, your doctor may recommend that you: ? Drink enough fluid to keep your pee (urine) clear or pale yellow. ? Take ibgd-yvn-twekzbr or prescription medicines. ? Eat foods that [...] 03/09/2009 Document Revised: 02/22/2019 Document Reviewed: 11/16/2016 [employer] Patient Education ? 2019 [employer]. Viral Gastroenteritis, Adult Viral gastroenteritis is also [...] ? Low-calorie sports drinks. ? Eat bland, anqz-fw-oxaufu foods in small amounts as you are able, such as: ? Bananas. ? Applesauce. ? Rice. ? Low-fat (lean) meats. ? Broadway. ? Crackers. ? Avoid fluids that have a lot of sugar or caffeine in them. ? Avoid alcohol. ? Avoid spicy or fatty foods. General instructions ? Drink enough fluid to keep your pee (urine) clear or pale yellow. ? Wash your hands often. If you cannot use soap and water, use hand chartered wealth manager. ? Make sure that all people in your home wash their hands well and often. ? Rest at home while you get better. ? Take dpbm-jhk-ollyyda and prescription medicines only as told by [...] 11/16/2008 Document Revised: 02/22/2019 Document Reviewed: 02/04/2016 [employer] Patient Education ? 2019 [employer] Viruses or Bacteria What?s got you [...] Disease Control and Prevention February 2014 Normal [facility] Extra Redon 12-21-2019 Tube Collected Yes [facility] Comment on above: Performed By: #### 1 [id number], [id number], 4748912, 75672654, [id number] ####[facility] (DEFAULT)[address] [place] [address] Pharmacy Noteon 12-21-2019 Pharmacy Note I have [...] [Verified on: 12/21/2019 15:00 EDT] Carolyn Medina [facility] UA w Culture if Ind Standard on 12-21-2019 Breakpoint UA [facility] Comment on above: Performed By: #### 1 [id number], 8618157, 10937360, 2082296, 6377448588, 8978015200 #### [facility] (DEFAULT) [address] [place] [address] 79280 Color (U) Yellow [facility] Comment on above: Performed By: #### 1 [id number], 6468531, 56292051, 0510408, 8702006914, 4613872998 #### [facility] (DEFAULT) [address] [place] [address] 18842 Culture? Not Indicated [facility] Comment on above: Performed By: #### 1 [id number], 5782468, 36718911, 7404933, 9023424067, 2393806548 #### [facility] (DEFAULT) [address] [place] [address] 85001 Glucose (U) [Mass/Vol] Negative [facility] Comment on above: Performed By: #### 1 986575408, 5641652, 34054751, 0989243, 6651689564, 7267886217 #### [facility] (DEFAULT) [address] [place] [address] 44212 Ketones Ql (U) Negative Normal [facility] Comment on above: Performed By: #### 1 087916052, 7808564, 79371054, 3225746, 8171721286, 1796100052 #### [facility] (DEFAULT) [address] [place] [address] 55633 Micro? Not Indicated [facility] Comment on above: Performed By: #### 1 937623817, 6310565, 14919408, 9813132, 9625060568, 7194709635 #### [facility] (DEFAULT) [address] [place] [address] 48651 UA Bilirubin Negative Normal [facility] Comment on above: Performed By: #### 1 599952849, 3670325, 57980745, 3473347, 4898849390, 3438637835 #### [facility] (DEFAULT) [address] [place] [address] 99072 UA Blood Negative Normal NEGATIVE [facility] Comment on above: Performed By: #### 1 391363771, 9928792, 79326492, 9891506, 6005061453, 8546604484 #### [facility] (DEFAULT) [address] [place] [address] 34162 UA Clarity CLEAR Normal CLEAR [facility] Comment on above: Performed By: #### 1 138666681, 3617894, 45288674, 9627007, 1352221955, 7988802549 #### [facility] (DEFAULT) [address] [place] [address] 12131 UA Leuk Est Negative Normal NEGATIVE [facility] Comment on above: Performed By: #### 1 891089047, 2157731, 92574207, 8524958, 1211615676, 9037049129 #### [facility] (DEFAULT) [address] [place] [address] 32465 UA Nitrite Negative Normal NEGATIVE [facility] Comment on above: Performed By: #### 1 051813626, 1410083, 12271744, 1389058, 5411968805, 5873587741 #### [facility] (DEFAULT) [address] [place] [address] 89001 UA pH 6.5 Normal 5-8 [facility] Comment on above: Performed By: #### 1 653770045, 8085408, 33677819, 5916663, 5438408787, 8117831297 #### [facility] (DEFAULT) [address] [place] [address] UA Protein Negative Normal NEGATIVE [facility] Comment on above: Performed By: #### 1 130836354, 0970259, 39403684, 0735019, 1475318949, 0952750599 #### [facility] (DEFAULT) [address] [place] [address] UA Spec Grav 1.025 Normal 1.001-1.035 [facility] Comment on above: Performed By: #### 1 422333377, 5496804, 81229840, 0850415, 6078530894, 6300005645 #### [facility] (DEFAULT) [address] [place] [address] UA Urobilinogen 1.0 mg/dL Normal 0.2-1.0 [facility] Comment on above: Performed By: #### 1 275671499, 1490066, 35454966, 4703052, 5653249314, 3227681878 #### [facility] (DEFAULT) [address] [place] [address] Urine Source Clean Catch Normal [facility] Comment on above: Performed By: #### 1 213941351, 9122979, 09445913, 3089232, 0769289237, 0307165802 #### [facility] (DEFAULT) [address] [place] [address] Coding Summaryon 08-21-2019 Coding Summary CODING DATE: 08/21/2019 FINAL [facility] STATUS: Home PAYOR: Self Pay ADMIT [...] Christoph Gonzalez' Date Saved: 08/21/2019 02:57 pm [facility] Coding Summary CODING DATE: 08/21/2019 [facility] STATUS: Home PAYOR: Self Pay ADMIT [...] Queta Gonzalez Date Saved: 08/21/2019 02:55 pm [facility] .Auto Diff 1on 08-16-2019 Auto [place] % 6 % Normal 1-12 [facility] Comment on above: Performed By: #### 1 119110334, 5799152, 25583645, 0503987, 4816116146, 3453335401 #### [facility] (DEFAULT) [address] [place] [address] 94076 Baso Abs# 0.0 x10 Normal 0.0-0.2 [facility] Comment on above: Performed By: #### 1 642055122, 5239696, 41933232, 2028025, 1921904110, 4148307952 #### [facility] (DEFAULT) [address] [place] [address] 78290 Basophils/100 WBC (Bld) 0.3 % Normal 0.2-2.0 [facility] Comment on above: Performed By: #### 1 508474538, 9788599, 01323504, 4042376, 6566199798, 1309052073 #### [facility] (DEFAULT) [address] [place] [address] 07419 Eos Abs# 0.7 x10 High 0.0-0.4 [facility] Comment on above: Performed By: #### 1 896310702, 1702587, 78274383, 1105316, 8852072461, 9390930739 #### [facility] (DEFAULT) [address] [place] [address] 39042 Eosinophils/100 WBC (Bld) 5.8 % High 0.9-4.0 [facility] Comment on above: Performed By: #### 1 176120330, 2711016, 20456688, 6223449, 1759806789, 4085398259 #### [facility] (DEFAULT) [address] [place] [address] 50789 Lymphocytes (Bld) [#/Vol] 2.6 x10 Normal 1.3-2.9 [facility] Comment on above: Performed By: #### 1 299798367, 9667207, 70662287, 2006165, 9865396505, 9729598550 #### [facility] (DEFAULT) [address] [place] [address] 46420 Lymphocytes/100 WBC (Bld) 22 % Normal 14-48 [facility] Comment on above: Performed By: #### 1 780159164, 1105860, 75383676, 7517423, 5679936282, 2015623848 #### [facility] (DEFAULT) [address] [place] [address] 72299 [place] Abs# 0.6 x10 Normal 0.0-0.8 [facility] Comment on above: Performed By: #### 1 233185825, 3973859, 10758994, 2652529, 5724880822, 1690828691 #### [facility] (DEFAULT) [address] [place] [address] Neut Abs# 7.6 x10 Normal 1.5-9.2 [facility] Comment on above: Performed By: #### 1 539420269, 2567194, 40087329, 9949163, 5002581077, 5194236489 #### [facility] (DEFAULT) [address] [place] [address] 51835 Neutrophils/100 WBC (Bld) 66 % Normal 44-88 [facility] Comment on above: Performed By: #### 1 166417413, 3899097, 93137468, 6555048, 3723529551, 9348991274 #### [facility] (DEFAULT) [address] [place] [address] CBC w/ Auto Diffon 0 Erythrocyte distribution width (RBC) [Ratio] 12.4 % Normal 11.5-15.0 [facility] Comment on above: Performed By: #### 1 130958042, 4641045, 43083796, 1749343, 3129904570, 5036670622 #### [facility] (DEFAULT) [address] [place] [address] Hematocrit (Bld) [Volume fraction] 43.9 % High 33.7-40.4 [facility] Comment on above: Performed By: #### 1 031465676, 1227395, 35854507, 6602620, 7465159995, 1785332239 #### [facility] (DEFAULT) [address] [place] [address] Hemoglobin (Bld) [Mass/Vol] 15.1 g/dL Normal 11.3-15.9 [facility] Comment on above: Performed By: #### 1 690081212, 4959718, 72266430, 2785959, 5462213771, 8834096234 #### [facility] (DEFAULT) [address] [place] [address] Man Diff? Auto Normal [facility] Comment on above: Performed By: #### 1 352673283, 2658861, 22054800, 6763588, 8686714870, 1183605850 #### [facility] (DEFAULT) [address] [place] [address] 27201 MCH (RBC) [Entitic mass] 31 pg Normal 24-34 [facility] Comment on above: Performed By: #### 1 688734443, 3021734, 67834842, 6049334, 2987258783, 5955784496 #### [facility] (DEFAULT) [address] [place] [address] MCHC (RBC) [Mass/Vol] 34 g/dL Normal 26-37 [facility] Comment on above: Performed By: #### 1 875048325, 9823149, 33004330, 2859398, 1222924193, 2934069782 #### [facility] (DEFAULT) [address] [place] [address] 76984 MCV (RBC) [Entitic vol] 90 fL Normal 81-100 [facility] Comment on above: Performed By: #### 1 430481246, 6669736, 79632957, 1675705, 1658555581, 6875424588 #### [facility] (DEFAULT) [address] [place] [address] 21498 Platelet mean volume (Bld) [Entitic vol] 10.5 fL High 6.3-10.2 [facility] Comment on above: Performed By: #### 1 515145419, 1418215, 49931794, 4877907, 7693554205, 2798426853 #### [facility] (DEFAULT) [address] [place] [address] Platelets (Bld) [#/Vol] 207 x10 Normal 138-427 [facility] Comment on above: Performed By: #### 1 504211029, 9022879, 09157481, 4049490, 1685156837, 7012054055 #### [facility] (DEFAULT) [address] [place] [address] 78950 RBC (Bld) [#/Vol] 4.87 x10 Normal 3.70-5.30 [facility] Comment on above: Performed By: #### 1 864497817, 9744755, 60452811, 6253170, 5439635635, 9061053163 #### [facility] (DEFAULT) [address] [place] [address] 17938 WBC (Bld) [#/Vol] 11.6 x10 [facility] Comment on above: Performed By: #### 1 081890842, 0376016, 93310127, 8900130, 1642475630, 0668614419 #### [facility] (DEFAULT) [address] [place] [address] 73698 CMP Standardon 08-16-2019 eGFR Non AA >60 [facility] Comment on above: Performed By: #### 1 662507625, 8324435, 16057474, 7207769, 1963016011, 3245898616 #### [facility] (DEFAULT) [address] [place] [address] 08982 eGFR AA >60 [facility] Comment on above: Result Comment: Quality Process Lead angie Kidney disease could be indicated at eGFRs of less than 60 ml/min/1.73m2. Kidney Failure is indicated at less than 15 ml/min/1.73m2 Performed By: #### 1 621774972, 9296967, 67891677, 6180387, 0431535129, 9706413811 #### [facility] (DEFAULT) [address] [place] [address] 44644 Albumin [Mass/Vol] 4.5 g/dL Normal 3.5-5.0 [facility] Comment on above: Performed By: #### 1 290427001, 9071944, 24601503, 2475748, 6621908355, 6361626775 #### [facility] (DEFAULT) [address] [place] [address] 90822 Albumin/Globulin [Mass ratio] 1.5 {ratio} Normal 1.4-2.6 [facility] Comment on above: Performed By: #### 1 278068913, 8911637, 22097300, 7978579, 2954765380, 1228016079 #### [facility] (DEFAULT) [address] [place] [address] 72065 Alk Phos 55 IU/L Normal 32-91 [facility] Comment on above: Performed By: #### 1 673497827, 3733813, 95640377, 6032845, 5316132241, 9519608571 #### [facility] (DEFAULT) [address] [place] [address] 80338 ALT/SGPT 35.0 IU/L Normal 14.0-54.0 [facility] Comment on above: Performed By: #### 1 415003940, 3007081, 71458777, 5598440, 9955951921, 2914697094 #### [facility] (DEFAULT) [address] [place] [address] 91642 Anion gap [Moles/Vol] 13.0 mmol/L Normal 5.0-19.0 [facility] Comment on above: Performed By: #### 1 202734446, 8329668, 46121647, 1321823, 0236333767, 6564487285 #### [facility] (DEFAULT) [address] [place] [address] 42266 AST/SGOT 25 IU/L Normal 15-41 [facility] Comment on above: Performed By: #### 1 877822207, 9559285, 32512417, 4600870, 0748339330, 3681561502 #### [facility] (DEFAULT) [address] [place] [address] 85144 Bili Total 0.8 mg/dL Normal 0.3-1.2 [facility] Comment on above: Performed By: #### 1 [id number], [id number], [id number], [id number], [id number], [id number] #### [facility] (DEFAULT) [address] [place] [address] 05061 Calcium [Mass/Vol] 9.6 mg/dL Normal 8.9-10.3 [facility] Comment on above: Performed By: #### 1 [id number], [id number], [id number], 8298824, [id number], [id number] #### [facility] (DEFAULT) [address] [place] [address] 10307 Chloride [Moles/Vol] 107 mmol/L Normal 101-111 [facility] Comment on above: Performed By: #### 1 [id number], [id number], 05887818, 6865817, [id number], [id number] #### [facility] (DEFAULT) [address] [place] [address] 41607 CO2 [Moles/Vol] 25 mmol/L Normal 21-32 [facility] Comment on above: Performed By: #### 1 [id number], 5252423, 95708678, 6970860, [id number], [id number] #### [facility] (DEFAULT) [address] [place] [address] 55947 Creatinine [Mass/Vol] 0.81 mg/dL Normal 0.60-1.30 [facility] Comment on above: Performed By: #### 1 [id number], 6994177, 77889757, 8910753, [id number], [id number] #### [facility] (DEFAULT) [address] [place] [address] 80318 Globulin (S) [Mass/Vol] 3.0 g/dL Normal 1.5-4.3 [facility] Comment on above: Performed By: #### 1 [id number], 7483111, 15485506, 9568168, [id number], [id number] #### [facility] (DEFAULT) [address] [place] [address] 47992 Glucose [Mass/Vol] 83.0 mg/dL Normal 74.0-118.0 [facility] Comment on above: Performed By: #### 1 [id number], 7323874, 66014688, 9415799, [id number], [id number] #### [facility] (DEFAULT) [address] [place] [address] 10946 Osmolality [Osmolality] 282 mOsm/L [facility] Comment on above: Performed By: #### 1 [id number], 3723298, 28144191, 9257591, [id number], [id number] #### [facility] (DEFAULT) [address] [place] [address] 29373 Potassium [Moles/Vol] 3.6 mmol/L Normal 3.6-5.1 [facility] Comment on above: Performed By: #### 1 [id number], 2210020, 55754453, 8870057, [id number], [id number] #### [facility] (DEFAULT) [address] [place] [address] 35850 Protein [Mass/Vol] 7.5 g/dL Normal 6.5-8.1 [facility] Comment on above: Performed By: #### 1 [id number], 0078207, 49044809, 5853958, 1584371007, [id number] #### [facility] (DEFAULT) [address] [place] [address] 67198 Sodium [Moles/Vol] 141.0 mmol/L Normal 136.0-144.0 [facility] Comment on above: Performed By: #### 1 [id number], 8336962, 65871839, 6600516, 3483935145, [id number] #### [facility] (DEFAULT) [address] [place] [address] 72651 Urea nitrogen [Mass/Vol] 18 mg/dL Normal 8-26 [facility] Comment on above: Performed By: #### 1 [id number], 9932373, 16043357, 2485808, 2551589007, [id number] #### [facility] (DEFAULT) [address] [place] [address] 24648 Urea nitrogen/Creatinine [Mass ratio] 22.0 mg/mg High 4.6-16.2 [facility] Comment on above: Performed By: #### 1 [id number], 8055398, 37727359, 6358025, [id number], [id number] #### [facility] (DEFAULT) [address] [place] [address] 41999 ED Clinical Summaryon 2019 ED Clinical Summary [facility] - Emergency Department [address] [place] [address] 16119 ED Clinical Summary PERSON INFORMATION Name: KELI ESTRADA Age: 19 Years Sex: FEMALE : 2000 MRN: Acct#: Visit Reason: Medical problem - minor; Vomiting; VOMITING, WEAKNESS Arrival: 08/16/2019 18:56:00 Discharge: 08/16/2019 21:16:00 LOS: 000 02:20 Check In: 08/16/2019 18:56:00 Checkout:08/16/2019 21:16:00 Address: [place] [address] PCP: KO FREEMAN PROVIDER INFORMATION Provider Role [...] % Auto Lymph % 22 % Auto [place] % 6 % Auto Eos % 5.8 % HI Auto Baso % 0.3 % Neut Abs# 7.6 x103/mcL Lymph Abs# 2.6 x103/mcL [place] Abs# 0.6 x103/mcL Eos Abs# 0.7 x103/mcL HI Baso Abs# 0.0 x103/mcL Tube Collected Yes Tube Collected Yes . Notes: Patient symptoms improved with GI cocktail. Patient counseled that her lab work is otherwise unremarkable. She was advised to follow-up with her primary care physician in 3 to 5 days. She is in agreement with this plan.. Impression and Plan Diagnosis Heartburn symptom (OUD03-DF R12, Discharge, Medical) Vomiting (NVF73-YK R11.10, Discharge, Medical) Plan Condition: Improved, Stable. [...] she is employed, she works at her [employer], she smokes occasionally, she rarely drinks, she states that Dr. Freeman is her doctor, she did not see Dr. Clatyon today. She denies any upper respiratory illnesses, [...] Heartburn Follow-Up: With: Address: When: KO FREEMAN [address] [place], [place] [id number] Business (1) Within 3 to 5 days DIAGNOSIS: Heartburn symptom; Vomiting Patient Understands: Yes - Patient/family/caregi shanique verbalizes understanding of instructions given Comment: [facility] ED Note - Physicianon 2019 ED Note [...] % Auto Lymph % 22 % Auto [place] % 6 % Auto Eos % 5.8 % HI Auto Baso % 0.3 % Neut Abs# 7.6 x103/mcL Lymph Abs# 2.6 x103/mcL [place] Abs# 0.6 x103/mcL Eos Abs# 0.7 x103/mcL HI Baso Abs# 0.0 x103/mcL Tube Collected Yes Tube Collected Yes . Notes: Patient symptoms improved with GI cocktail. Patient counseled that her lab work is otherwise unremarkable. She was advised to follow-up with her primary care physician in 3 to 5 days. She is in agreement with this plan.. Impression and Plan Diagnosis Heartburn symptom (SGH63-FH R12, Discharge, Medical) Vomiting (EJJ82-LR R11.10, Discharge, Medical) Plan Condition: Improved, Stable. [...] on: 08/16/2019 21:12 EST] Cyrus Resendez MD [facility] ED Note - Physician Patient: KELI ESTRADA [...] she is employed, she works at her [employer], she smokes occasionally, she rarely drinks, she [...] on: 08/16/2019 20:02 EST] Fernando Quiroz DO [facility] ED Note-Nursingon 08-16-2019 ED Note-Nursing Patient came [...] No fever. 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 Patient is A/O X4 and placed in room 9. [facility] ED Patient Education Noteon 08-16-2019 ED Patient [...] pharmacies and retail stores. ? Eat bland, gsot-bs-qcvtvz foods in small amounts as you are [...] and water are not available, use hand chartered wealth manager. Make sure that everyone in your household washes their hands frequently. ? Take cvii-ged-fzgseoe and prescription medicines only as told by [...] and water are not available, use hand chartered wealth manager. Make sure that everyone in your household [...] 06/26/2016 Document Revised: 11/08/2018 Document Reviewed: 11/08/2018 [employer] Patient Education ? 2019 [employer] Heartburn Heartburn is a type of [...] vinegar, hot sauces, and barbecue sauce. ? [place] fruit juices and citrus fruits, such as oranges, jorge, and limes. ? Tomato-based foods, such as red sauce, chili, salsa, and pizza with red sauce. ? Fried and fatty foods, such as donuts, kosovan fries, potato chips, and high-fat dressings. ? [...] any changes in your symptoms. ? Take yiwq-xwz-srlnebm and prescription medicines only as told by [...] by your health care provider. ? Take kwtm-kjx-jbaypjw and prescription medicines only as told by [...] 10/17/2009 Document Revised: 10/31/2018 Document Reviewed: 10/31/2018 [employer] Patient Education ? 2019 [employer] Normal [facility] ED Patient Summaryon 020 ED Patient Summary [facility] - Emergency Department [address] [place] [address] PATIENT DISCHARGE INSTRUCTIONS Patient Information Name: KELI ESTRADA Age: 19 Years Date of : 2000 Reason For Visit: Medical problem - minor; Vomiting; VOMITING, WEAKNESS Arrival Time: 08/16/2019 18:56:00 Primary Care Physician: KO FREEMAN Attending Physician: Fernando Quiroz DO Comment: Visit Diagnosis: Diagnoses This Visit Heartburn symptom (R12) Medical problem - minor ([id number]) Vomiting (R11.10) Vomiting ([id number]) Prescription Information: If you have been given a prescription for narcotics, seek immediate medical attention if you have any difficulty breathing or any sudden status changes such as confusion and sleepiness. If you or anyone you know is experiencing suicidal thoughts, mental health, alcohol and/or drug addiction problems; contact the [facility] 04/01 Crisis Hotline -text 4hope to [...] legal documents With: Address: When: KO FREEMAN [address] [place] [address] [place] [id number] Business (1) Within 3 to 5 days Medication Information: The exam and treatment you received today in the [facility] Emergency Department were for an urgent problem and are not intended as complete care. It is important for you to follow up with a doctor, nurse practitioner, or physician?s general assistant for ongoing care. If your symptoms [...] so we can reach you if necessary. [facility] Emergency Department has provided you with a complete list of medications post discharge. Please inform your grout machine operator/provider of your visit and for further instruction [...] pharmacies and retail stores. ? Eat bland, gmog-yc-gemkkn foods in small amounts as you are [...] and water are not available, use hand chartered wealth manager. Make sure that everyone in your household washes their hands frequently. ? Take hyey-xgz-kneaubv and prescription medicines only as told by [...] and water are not available, use hand chartered wealth manager. Make sure that everyone in your household [...] 06/26/2016 Document Revised: 11/08/2018 Document Reviewed: 11/08/2018 [employer] Patient Education ? 2019 [employer] Heartburn Heartburn is a type of [...] vinegar, hot sauces, and barbecue sauce. ? [place] fruit juices and citrus fruits, such as oranges, jorge, and limes. ? Tomato-based foods, such as red sauce, chili, salsa, and pizza with red sauce. ? Fried and fatty foods, such as donuts, kosovan fries, potato chips, and high-fat dressings. ? [...] any changes in your symptoms. ? Take ojgw-fvy-jrfygqe and prescription medicines only as told by [...] by your health care provider. ? Take hzju-dmk-dtwcvfk and prescription medicines only as told by [...] 10/17/2009 Document Revised: 10/31/2018 Document Reviewed: 10/31/2018 [employer] Patient Education ? 2019 [employer] Viruses or Bacteria What?s got you [...] Disease Control and Prevention February 2014 Normal [facility] Extra Blueon 08-16-2019 Tube Collected Yes [facility] Comment on above: Performed By: #### 1 [id number], [id number], [id number], 6585129, [id number], [id number] #### [facility] (DEFAULT) [address] [place] [address] Influenza A&B Rapidon 2019 Influenza A Negative Normal Negative [facility] Comment on above: Performed By: #### 1 [id number] #### [facility] (DEFAULT) [address] [place] [address] Influenza B Negative Normal [facility] Comment on above: Performed By: #### 1 [id number] #### [facility] (DEFAULT) [address] [place] [address] 87628 Internal QC OK? Pass Normal [facility] Comment on above: Performed By: #### 1 [id number] #### [facility] (DEFAULT) [address] [place] [address] 32303 Lipaseon 08-16-2019 Lipase Level 30.0 IU/L Normal 22.0-51.0 [facility] Comment on above: Performed By: #### 1 [id number], [id number], 28340132, [id number], [id number], [id number] #### [facility] (DEFAULT) [address] [place] [address] 25487 HISTORY PHYSICALon HISTORY PHYSICAL HNO ID: [id number] Author: Jacoby Reyes Service: Pain Management Author [...] DATE: May 03, 2019 TIME: 9:24 AM PAGER:[id number] [facility] HISTORY PHYSICAL HNO ID: [id number] Author: Gloria Mckeon (Pa) Service: ? Author Type: Physician Jewelry Model Maker Type: HANDP Filed: 05/03/2019 9:16 AM Note [...] May 03, 2019 TIME: 9:08 AM PAGER: [facility] OPERATIVE NOon 05-03-2019 OPERATIVE NO HNO ID: [id number] Author: Jacoby Reyes Service: Pain Management Author Type: Physician Type: Operative Report Filed: 05/03/2019 9:43 AM Note Text: Patient Name Medical Record # Keli Estrada [id number] Date of : 2000 Admit Date: May 03, 2019 Sex / Age: female / 18 year old Discharge Date: May 03, 2019 Attending Physician: Jacoby Reyes MD OPERATIVE REPORT DATE OF PROCEDURE: May 03, 2019 LOG ID: [id number] Surgery/Procedure Date: 05/03/2019 Incision/Procedure Start Time: 9:35 AM Incision Close/Procedure End Time: 9:41 AM Surgeon(s)/Procedural ist(s) and Jewelry Model Maker(s): Surgeon(s) and Role: * Jacoby Reyes - [...] Reyes MD Pain Management May 03, 2019 [facility] HOSPon 03-21-2019 HOSP Patient:Shanique Estrada MRN: [...] entered within the past 30 days Normal [facility] Encounters Encounter Date Encounter Type Care Provider Facility Start: 11-11-2023 End: 11-11-2023 ambulatory DEIDRA REES Not Available Start: 08-27-2023 End: 09-30-2023 ambulatory [place] Start: 09-07-2022 End: 09-07-2022 ambulatory Deidra Rees Facility:[facility] Start: 09-07-2022 End: 09-07-2022 ambulatory MD Ko Freeman Work Phone: [facility] Work Phone: Start: 09-07-2022 End: 09-07-2022 Departed Referred MD Ko Freeman Work Phone: [facility] [place] Work Phone: Start: 09-03-2022 End: 09-03-[address] KO FREEMAN . Facility:[facility] Start: 06-10-2022 End: 06-10-2022 ambulatory [facility]FREY Facility:[facility] Start: 03-05-[address] KO FREEMAN . Facili ty:[facility] Start: 02-25-2022 End: 02-25-[address] KO FREEMAN . Facility:[facility] Payers Date Payer Category Payer Self-pay [id number] 2022 Medicaid [id number] 2000 Unknown [id number] 2000 Unknown [id number] 2000 Unknown [id number] 2000 Unknown [id number] [id number] 2000 Unknown [id number] [id number] 1959 Unknown [id number] Private Health Insurance [facility] Plan [id number] Unknown [place] [id number] Unknown [id number] Social History Date Type Detail Facility [facility] if ever [facility] Work Phone: Start: 2000 Sex Assigned At Female F [facility] Progress note 08-24-2021 Note Date & Type Note Facility 02-04-2021 Note HNO ID: [id number] Author: Alfie Card APRN.NANOSYSTEMS ENGINEER Service: ? Author Type: Nurse Practitioner Type: [...] for abnormal hair growth. 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 Not on it now. 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 Never seen endocrinology Pudendal injection helped with tailbone pain. Has not been back to see Dr Reyes. Had a lot of relief for quite some time. Pelvic floor physical therapy for 1-2 months. No relief. Made it worse. Made better with Ibuprofen. [place] - sometimes pain afterwards. Makes it feel [...] Medical Decision Making Level: 3 - Low [facility] Evaluation note Note Date & Type Note Facility Evaluation note No assessment information availa [facility] Work Phone: Summary Purpose Family History No [...] section and content) DATE CREATED AUTHOR 05/03/2019 [facility] DATE CREATED AUTHOR AUTHOR'S ORGANIZ ATION 01/05/2020 [facility] DATE CREATED AUTHOR AUTHOR'S ORGANIZ ATION 07/11/2021 [facility] DATE CREATED AUTHOR AUTHOR'S ORGANIZ ATION 09/06/2022 [facility] DATE CREATED AUTHOR AUTHOR'S ORGANIZ ATION 09/18/2022 [facility] DATE CREATED AUTHOR AUTHOR'S ORGANIZ ATION 11/12/2023 [facility] DATE CREATED AUTHOR AUTHOR'S ORGANIZ ATION 01/05/2024 [facility] Teams (unrecognized sec tion and content) Team [...] BE BASED ON THE PRIMARY CLINICAL RECORDS. [facility] [employer] provides no warranty or guarantee of the accuracy or completeness of information in this document.
== END 2024-04-04 08:48 | disposition home or self-care (01) ==
LOC: RAD 08:47
PROVIDERS: Family Provider Obstetrics & Gynecology; PCP Family Medicine; Visit Provider Family Medicine
DX: Z01.818 Encounter for other preprocedural examination (principal); M23.90 Unspecified internal derangement of unspecified knee; S83.281A Other tear of lateral meniscus, current injury, right knee, initial encounter
CPT/HCPCS: 73721

== ENCOUNTER 2025-02-15 10:46 | Emergency (ER) | payer MEDICAID, SELFPAY ==
--- OUTSIDE RECORDS SUMMARY | 2024-03-21 07:49 | XMS_ITS ---
Author Organization The [facility] [place] Address [address] [place] [address] Care Team Providers Care Trials Manager Name Role Phone Polo Freeman Primary Care Provider REASON FOR VISIT update on knee Encounters Encounter Location Date Provider Diagnosis [facility] [address] [place] [address] 03/21/2024 Polo Freeman Plan Of Treatment No Information Progress Notes * Keli ESTRADA LDOB:[birth year] (23 yo F)Acc No.[id number]:03/21/2024 Patient: Chandni LARSON Keli Newsome :2000 A ge:23 Y S ex:Female Address:[place] [address] * true * Date: Generated for Printi ng/Fapolag/eTransmitting on: 0 02/15/2025 10:56 AM EDT
--- OUTSIDE RECORDS SUMMARY | 2024-03-27 07:03 | XMS_ITS ---
Author Organization The [facility] [place] Address [address] [place] [address] Care Team Providers Care Print Shop Helper Name Role Phone Polo Freeman Primary Care Provider REASON FOR VISIT orbits before MRI Encounters Encounter Location Date Provider Diagnosis [facility] [address] [place] [address] 03/27/2024 Polo Lydia Pre-procedural examination Z01.818 Assessments Encounter Date Diagnosis (ICD Code) Assessment Notes Treatment Notes Treatment Clinical Notes Section Notes 03/27/2024 Pre-procedural examination (ICD-10 - Z01.818) Plan Of Treatment Pending Test Test Name Order Date XR Orbits Complete 03/27/2024 Progress Notes * Keli ESTRADA LDOB:[birth year] (23 yo F)Acc No.[id number]:03/27/2024 Patient: Maliha DUQUEjazmyn Newsome :2000 A ge:23 Y S ex:Female Address:[place] [address] Subjective: * Chief Complaints: * o rbits before MRI * Medical History: * Surgical History: * Hospitalization/Major Diagno stic Procedure: * Medications: Objective: * Vitals: * Physical Examination: Assessment: * Assessment: 1. P re-procedural examination - Z01.818 (Primary) Plan: * Treatment: * Procedure Codes: * true * Date: Generated for Printi ng/Faxing/eTransmitting on: 0 02/15/2025 10:55 AM EDT
--- OUTSIDE RECORDS SUMMARY | 2024-04-04 12:20 | XMS_ITS ---
Author Organization [facility] in [place] Address [address] [place] [address] Care Team Providers Care Nutritional Services Host Name Role Phone Polo Freeman Primary Care Provider Reason For Referral Diagnosis 1 Meniscus tear, right , initial encounter (S83.206A) Referral Organization [facility] Referring Provider First Name Polo Referring Provider Last Name Lydia Referring Provider [facility] brooke Referred Provider Nixon Angel Referred Provider Specialty Orthopedic S urgery Referral Priority Routine REASON FOR VISIT MRI results Encounters Encounter Location Date Provider Diagnosis [facility] [address] [place] [address] 04/04/2024 Polo Freeman Meniscus tear, right , initial encounter S83.206A Assessments Encounter Date Diagnosis (ICD Code) Assessment Notes Treatment Notes Treatment Clinical Notes Section Notes 04/04/2024 Meniscus tear, right, initial encounter (ICD-10 - S83.206A) Plan Of Treatment Referrals Referral Date Details 04/04/2024 04/04/2024, Nixon kaur Progress Notes * Keli ESTRADA LDOB:[birth year] (23 yo F)Acc No.[id number]:04/04/2024 Patient: Keli DUQUE :2000 A ge:23 Y S ex:Female Address:[place] [address] Subjective: * Chief Complaints: * M RI results * Medical History: * Surgical History: * Hospitalization/Major Diagno stic Procedure: * Medications: Objective: * Vitals: * Physical Examination: Assessment: * Assessment: 1. M eniscus tear, right, initial encounter - (Primary) Plan: * Treatment: * Procedure Codes: * true * Date: Generated for Esvin dee/Jerome/eTransmitting on: 0 02/15/2025 10:55 AM EDT Consultation Request Notes Referral Date Referring Provider Referred Provider Not es 04/04/2024 Polo Freeman Steven
--- OUTSIDE RECORDS SUMMARY | 2024-04-14 07:57 | XMS_ITS ---
Author Organization [facility] [place] Address [address] [place] [address] Care Team Providers Care Employee'S Representative Name Role Phone Polo Freeman Primary Care Provider REASON FOR VISIT SICK Medications Medication SIG (Take, Route, Fr equency, Duration) Notes Start Date End Date Status Ondansetron HCl 4 MG 1 tablet Orally BID prn for 7 days 04/14/2024 Active Cefdinir 300 MG one capsule Orally B ID for 10 days 04/14/2024 Active Encounters Encounter Location Date Provider Diagnosis [address] [address] 04/14/2024 Polo Freeman Plan Of Treatment Medication Medication Name Sig Start Date Stop Date Notes Ondansetron HCl 4 MG 1 tablet Orally BID prn for 7 days Cefdinir 300 MG one capsule Orally BID for 10 days 024 Progress Notes * Keli ESTRADA LDOB:[birth year] (23 yo F)Acc No.[id number]:04/14/2024 Patient: Maliha DUQUEjazmyn Newsome :2000 A ge:23 Y S ex:Female Address:[place] [address] [address] [address] * Refills Start Cefdinir Capsule, 300 MG, Orally, 20, one capsule, BID, 10 days, Refills=0 Start Ondansetron HCl Tablet, 4 MG, Orally, 14, 1 tablet, BID prn, 7 days, Refills=0 Subjective: * Chief Complaints: * S ICK * Medical History: * Surgical History: * Hospitalization/Major Diagno stic Procedure: * Medications: Objective: * Vitals: * Physical Examination: Assessment: Plan: * Treatment: * Procedure Codes: * true * Date: Generated for Esvin dee/Jerome/Delio on: 0 02/15/2025 10:55 AM EDT
--- OUTSIDE RECORDS SUMMARY | 2024-07-10 07:40 | XMS_ITS ---
Author Organization [facility] Address [address] [place] [address] Care Team Providers Care Mergers And Acquisitions Attorney Name Role Phone Sarbjit Freeman Primary Care Provider Nixon Winkler [facility] [phone] REASON FOR VISIT RIGHT KNEE RECHECK Encounters Encounter Location Date Provider Diagnosis [facility] [address] [place] [address] 07/10/2024 Nixon Angel Plan Of Treatment No Information Progress Notes * YANY, CARMENZA LDOB:[birth year] (24 yo F)Acc No.[id number]:07/10/2024 Patient: CARMENZA DUQUE Provider: Edi Angel MD :2000 A ge:24 Y S ex:Female Date:07/10/2024 Address:[address], [id number] Pcp:Sarbjit Freeman Subjective: * Chief Complaints: * 1 . RIGHT KNEE RECHECK. * Medical History: Objective: * Vitals: Assessment: Plan: * Treatment: Forms: * Images: * Electronic signature of Milton Angel MD on 02/15/2025 at 10:55 AM EDT Sign off status: Pending * Provider: Edi Angel MD Date: 0 07/10/2024 Generated for Esvin dee/Jerome/eTransmitting on: 0 02/15/2025 10:55 AM EDT
[2025-02-15 10:49] VITALS: BP 113/82; PULSE 68; TEMP 36.8; O2SAT 98; BMI 31.8
--- OUTSIDE RECORDS SUMMARY | 2025-02-15 10:55 | XMS_ITS | Patient Health Record ---
Author Organization [facility] Address [address] [place] [address] Care Team Providers Care Tag Writer Name Role Phone Sarbjit Freeman Primary Care Provider Nixon Winkler [facility] [phone] Allergies Allergen (clinical drug ingredient) Drug/Non Drug Allergy documented on EMR Reaction Allergy Type Onset Date Status BIOXIN (uncoded) Unknown Allergy Act sabra tobramycin Unknown Drug Allergy Active sulfamethoxazole / trimethoprim Bactrim Unknown Drug Allergy Active amoxicillin amoxicillin Unknown Drug Allergy Act sabra Reason For Referral No Information Medications Medication SIG (Take, Route, Fr equency, Duration) Notes Start Date End Date Status ketorolac 10 mg 1 tab(s) orally 3 ti mes a day for 5 days 04/17/2024 Unknown Mobic 15 mg 1 tab(s) orally once a day for 45 days 04/17/2024 Unknown naproxen 500 mg 1 tab(s) orally 2 ti mes a day for 30 days 05/29/2024 Active Social History Tobacco Use: Social History Observation Description Date Details (start date - stop date) Never Smoker NA - NA AUDIT-C (Standard) Question Answer Notes Did you have a drink containing alcohol in the p ast year? No Points 0 Interpretation Negative Tobacco Control (Standard) Question Answer Notes Tobacco use: Nonsmoker Vital Signs Height 5'4 in 04/17/2024 Weight 173 lbs 04/17/2024 BMI 29.69 04/17/2024 Encounters Encounter Location Date Provider Diagnosis [facility] [address] [place] [address] 04/17/2024 Nixon Angel Acute pain of right knee M25.561 [facility] [address] [place] [address] 05/29/2024 Nixon Angel Acute pain of right knee M25.561 Assessments Encounter Date Diagnosis (ICD Code) Assessment Notes Treatment Notes Treatment Clinical Notes Section Notes 05/29/2024 Acute pain of right knee (ICD-10 - M25.561) 04/17/2024 Acute pain of right knee (ICD-10 - M25.561) 04/17/2024 Other I discussed the patient that MRI findings do not correlate with her mainly medial sided joint pain. Also discussed MRI findings are not convincing for a meniscal tear. I recommended conservative treatment. She reports of her other conditions in the past Toradol has worked quite well. I will write a for 5 days of Toradol in the meloxicam. Will follow-up in 6 weeks to reassess her progress. We have discussed alternative treatment options such as corticosteroid injections. We have discussed that ultimately if she is not improving consideration could be made for diagnostic arthroscopy. Import medication 05/29/2024 Other For right knee pain I recommended Naprosyn 500 mg twice a day. She has a sulfa allergy and does not tolerate Celebrex. She also reports an reaction to Depo-Medrol. Consideration could be made for a dexamethasone injection if he is not improving. Import medication Plan Of Treatment No Information Insurance Providers Payer Name Payer Address Payer Phone Subscriber Number Group Number Insured Name Patient Relationship to Insured Coverage Start Date Coverage End Date Medicaid An[place] [address] [place] [address] [id number] CARMENZA SLADE Self - patient is the insured
--- OUTSIDE RECORDS SUMMARY | 2025-02-15 10:55 | XMS_ITS | Encounter Summary ---
Author Organization [facility] Address [address] [place] [address] Care Team Providers Care Manufacturing Development Engineer Name Role Phone Unallocated, Noms Provider Primary Care Provi [email or web address] Encounter Details Date Type Department Care Team (Late st Contact Info) Description 01/28/2023 Abstract VINNIE Yanelyboaz CLAROS [address] [facility] [address] [place] [address] Serg Rees MD [address] [facility] [address] [place] [address] Social History Tobacco Use Types Packs/Day Years Used Date Smoking Tobacco: Every Day Cigarettes Smokeless Tobacco: Never Alcohol Use Standard Drinks/Week Comments Yes 0 (1 standard drink = 0.6 oz pur e alcohol) Comments Unknown Sex and Gender Information Value Date Recorded Sex Assigned at Not on file Legal Sex Female 7:30 PM EDT Gender Identity Female 08/26/2022 7:30 PM EDT Sexual Orientation Bisexual 08/26/2022 7: 30 PM EDT documented as of this encounter Plan of Treatment Not on file documented as of this encounter Visit Diagnoses Not on filedocumented in this encounter Care Teams Manufacturing Development Engineer Relationship Specialty Start Date End Date Unallocated, Noms Provider, [place] [address] PCP - General Family Medicine 11/11/23 documented as of this encounter
--- OUTSIDE RECORDS SUMMARY | 2025-02-15 10:56 | XMS_ITS | Patient Health Record ---
Author Organization [facility] [place] [facility] [place] Address [address] [place] [address] Care Team Providers Care Resource Manager Forester Name Role Phone Polo Hoffman Primary Care Provider Allergies Allergen (clinical drug ingredient) Drug/Non Drug Allergy documented on EMR Reaction Allergy Type Onset Date Status amoxicillin Amoxicillin itchy Drug Allergy Act sabra sulfamethoxazole / trimethoprim Bactrim Unknown Drug Allergy Active Biaxin Unknown Drug Allergy Active tobramycin Tobramycin Unknown Drug Allergy Activ e Results Component Value Reference Range Notes MR knee RT wo con Reviewed date:04/04/2024 04:21:39 PM Interpretation: Performing Lab: Notes/Report: Source Facility: [place] [address] Magnetic Resonance Report Signed Patient: KELI ESTRADA MR#: [id number] : 2000 Acct:[id number] Age/Sex: 23 / F ADM Date: 04/04/24 Loc: RAD Attending Dr: Ko Hoffamn M.D. Ordering Physician: Ko Hoffman M.D. Date of Service: 04/04/24 Procedure(s): MR knee RT wo con Accession Number(s): [id number] cc: Ko Hoffman M.D. [place] [address] Patient Name: KELI ESTRADA MRN: [facility]:[id number] date: 2000 Sex: F Assigned Patient Location: [facility] Current Patient Location: [facility] Accession/Order Number: [id number] Exam Date: 04/04/2024 09:02 Report Date: 04/04/2024 15:44 At the request of: KO HOFFMAN Procedure: MR knee RT wo con EXAMINATION: MR knee RT wo con HISTORY: Internal Derangement Of Knee COMPARISON: No relevant comparison available. TECHNIQUE: A complete multi-planar MRI was performed. FINDINGS: MEDIAL COMPARTMENT MEDIAL MENISCUS: No visible tear or significant degeneration. CARTILAGE: No visible defect. BONES: No marrow pathology, fracture, or significant arthropathy. MCL AND MEDIAL CAPSULE: Normal medial collateral ligament and medial capsule. LATERAL COMPARTMENT LATERAL MENISCUS: Linear signal abnormality identified along the medial aspect of the meniscus best seen on coronal image 129 and 130 with an associated meniscal cyst measuring 1.5 x 0.8 cm coronal image 127 and 1.5 cm sagittal image 18. CARTILAGE: No visible defect. BONES: No marrow pathology, fracture, or significant arthropathy. LCL/POSTEROLAT COMPLEX: Normal lateral collateral ligament, fascicles, lateral capsule and ligaments. ANTERIOR COMPARTMENT PATELLA: No marrow pathology, fracture, or significant arthropathy. CARTILAGE: No visible defect. TENDONS: Normal. EFFUSION: None. No synovitis or loose bodies. ACL: Normal appearing ligament. PCL: Normal appearing ligament. MENISCOFEMORAL: Normal meniscofemoral ligaments. OTHER: Negative. MR/MR knee RT wo con IMPRESSION: Small horizontal tear of the anterior medial aspect of the lateral meniscus with associated meniscal cyst Electronically authenticated by: PEDRO NATHAN Date: 04/04/2024 15:44 Dictated By: Pedro Nathan M.D. Signed By: 04/04/24 1546 DD/ 1544 TD/TT: Pipefitter Helper: [place] [address] Magnetic Resonance Report Signed Patient: DAYNA ESTRADA MR#: [id number] : 2000 Acct:[id number] Age/Sex: 23 / F ADM Date: 04/04/24 Loc: RAD Attending Dr: Ko Hoffman M.D. Ordering Physician: Ko Hoffman M.D. Date of Service: 04/04/24 Procedure(s): MR knee RT wo con Accession Number(s): [id number] cc: Ko Hoffman M.D. [place] [id number] Patient Name: KELI ESTRADA MRN: [id number] date: 2000 Sex: F Assigned Patient Location: RAD Current Patient Location: RAD Accession/Order Numb er: [id number] Exam Date: 09:02 Report Date: 04/04/2024 15:44 At the request of: KO HOFFMAN Procedure: MR knee RT wo con EXAMINATION: MR knee RT wo con HISTORY: Internal De rangement Of Knee COMPARISON: No relev ant comparison available. TECHNIQUE: A complet e multi-planar MRI was performed. FINDINGS: MEDIAL COMPARTMENT MEDIAL MENISCUS: No visible tear or significant degeneration. CARTILAGE: No visible defect. BONES: No marrow pat hology, fracture, or significant arthropathy. MCL AND MEDIAL CAPSU LE: Normal medial collateral ligament and medial capsule. LATERAL COMPARTMENT LATERAL MENISCUS: Li near signal abnormality identified along the medial aspect of the meniscus best seen on coronal image 129 and 130 with an associated meniscal cyst measur ing 1.5 x 0.8 cm coronal image 127 and 1.5 cm sagittal image 18. CARTILAGE: No visible defect. BONES: No marrow pat hology, fracture, or significant arthropathy. LCL/POSTEROLAT COMPL EX: Normal lateral collateral ligament, fascicles, lateral capsule and ligaments. ANTERIOR COMPARTMENT PATELLA: No marrow p athology, fracture, or significant arthropathy. CARTILAGE: No visible defect. TENDONS: Normal. EFFUSION: None. No s ynovitis or loose bodies. ACL: Normal appearing ligament. PCL: Normal appearing ligament. MENISCOFEMORAL: Norm al meniscofemoral ligaments. OTHER: Negative. M R/MR knee RT wo con IMPRESSION: Small horizontal tea r of the anterior medial aspect of the lateral meniscus with associated meniscal cyst Electronically authe nticated by: PEDRO NATHAN Date: 04/04/2024 15:44 Dictated By: Pedro Nathan M.D. Signed By: 04/04/24 1546 DD/ 1544 TD/TT: Pipefitter Helper: XR KNEE RT 3V Reviewed date:02/27/2024 11:36:31 AM Interpretation: Performing Lab: Notes/Report: Source Facility: [place] [address] XRay Report Signed Patient: KEIL ESTRADA MR#: [id number] : 2000 Acct:[id number] Age/Sex: 23 / F ADM Date: 02/24/24 Loc: RAD Attending Dr: Ko Hoffman M.D. Ordering Physician: Ko Hoffman M.D. Date of Service: 02/24/24 Procedure(s): XR knee RT 3V Accession Number(s): [id number] cc: Ko Hoffman M.D. [place] [address] Patient Name: KELI ESTRADA MRN: [id number] date: 2000 Sex: F Assigned Patient Location: RAD Current Patient Location: Accession/Order Number: [id number] Exam Date: 02/24/2024 10:58 Report Date: 02/26/2024 06:08 At the request of: KO HOFFMAN Procedure: XR knee RT 3V PROCEDURE: XR knee RT 3V HISTORY: Internal Derangement Of Knee COMPARISON: None. FINDINGS: BONES:No fracture, acute abnormality, or significant arthropathy. SOFT TISSUES:No visible soft tissue swelling. EFFUSION:None visible. OTHER: Negative. XR/XR knee RT 3V IMPRESSION: 1. No acute bone abnormality. Electronically authenticated by: NIXON LAMAS Date: 02/26/2024 06:08 Dictated By: Nixon Lamas M.D. Signed By: 02/26/24610 DD/ 7 TD/TT: Pipefitter Helper: [place] [address] XRay Report Signed Patient: DAYNA ESTRADA MR#: [id number] : 2000 Acct:[id number] Age/Sex: 23 / F ADM Date: 02/24/24 Loc: RAD Attending Dr: Ko Hoffman M.D. Ordering Physician: Ko Hoffman M.D. Date of Service: 02/24/24 Procedure(s): XR knee RT 3V Accession Number(s): [id number] cc: Ko Hoffman M.D. [address] [address] Patient Name: KELI ESTRADA MRN: [id number] date: 2000 Sex: F Assigned Patient Location: RAD Current Patient Location: Accession/Order Numb er: [id number] Exam Date: 02/24/2024 10:58 Report Date: 02/26/2024 06:08 At the request of: KO HOFFMAN Procedure: XR knee RT 3V PROCEDURE: XR knee RT 3V HISTORY: Internal De rangement Of Knee COMPARISON: None. FINDINGS: BONES:No fracture, a cute abnormality, or significant arthropathy. SOFT TISSUES:No visi ble soft tissue swelling. EFFUSION:None visible. OTHER: Negative. X R/XR knee RT 3V IMPRESSION: 1. No acute bone abnormality. Electronically authe nticated by: NIXON LAMAS Date: 02/26/2024 06:08 Dictated By: Nixon Lamas M.D. Signed By: 02/26/24610 DD/ 7 TD/TT: Pipefitter Helper: Reason For Referral Diagnosis 1 Meniscus tear, right , initial encounter (S83.206A) Referral Organization [facility] Referring Provider First Name Polo Referring Provider Last Name Lydia Referring Provider Speciality Family Med icine Referred Provider Nixon Angel Referred Provider Specialty Orthopedic S urgery Referral Priority Routine Medications Medication SIG (Take, Route, Frequency, Duration) Notes Start Date End Date Status Albuterol Sulfate HFA 108 (90 Base) MCG/ACT INHALE 1 PUFF BY MOUTH EVERY 4 HOURS NEEDED for 33 Active Pulmicort 1 MG/2ML 1 mL Inhalation Twic e a day for 30 days Dx: J45.909 Active Hyoscyamine Sulfate 0.125 MG 1-2 tabs SL SL every 4 hrs PRN abd pain 03/07/2024 Active Protonix 40 MG 1 tablet Orally Once a day for 30 days 03/07/2024 Active Ondansetron HCl 4 MG 1 tablet Orally BID prn for 7 days 04/14/2024 Active Ondansetron 4 MG 1 tablet on the tongue and allow to dissolve Orally four times daily as needed for 14 days PRN Active Intuniv 1 MG 1 capsule Orally bid 07/09/2023 Active Levsin 0.125 MG 1 tablet as needed Orally QID for 5 days 10/14/2023 Active Cefdinir 300 MG one capsule Orally BID for 10 days 04/14/2024 Active Albuterol Sulfate (2.5 MG/3ML) 0.083% 3 mL as needed Inhalation every 6 hrs for 30 days PRN. Dx: J44.909 Active Diclofenac Sodium 75 MG 1 tablet as needed Orally Twice a day for 30 days 02/24/2024 Active Dulera 100-5 MCG/ACT 2 puffs Inhalation Twice a day for 30 days Active Social History Tobacco Use: Social History Observation Description Date Details (start date - stop date) Former Smoker NA - NA Tobacco Use/Smoking Question Answer Notes Patient is a former smoker How long has it been since you last smoked? < 1 month Alcohol Screen (Audit-C) Question Answer Notes Did you have a drink contain ing alcohol in the past year? Yes How often did you have 6 or more drinks on one occasion in the past year? Monthly or less (1 point) How many drinks did you have on a typical day when you were drinking in the past year? 1 or 2 drinks (0 point) How often did you have a dri nk containing alcohol in the past year? Less than monthly (1 point) Points 2 Interpretation Negative AUDIT-C (Standard) Question Answer Notes Did you have a drink containing alcohol in the p ast year? 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, not intractable, without status epilepticus (G40.209) Active confirmed Problem Hirsutism (718064968) Hirsutism (L68.0) Active confirmed Problem Acanthosis nigricans (210271428) Acanthosis nigricans (L83) Active confirmed Problem Seizure (47856269) Seizure (R56.9) Active confi rmed Problem Asthma (419910304) Asthma (J45.909) Active conf irmed Problem Obstructive sleep apnea (30934764) Obstructive sleep apnea (G47.33) Active confirmed Problem Insomnia (675517548) Insomnia (G47.00) Active confirmed Problem Sinusitis (94744272) Sinusitis (J32.9) Active confirmed Problem Acute sinusitis (08334446) Acute sinusitis (J01.90) Active confirmed Problem Allergic rhinitis (78634741) Allergic rhinitis (J30.9) Active confirmed Problem Obese (367520468) Obese (E66.9) Active confirme d Problem Gastritis (4356138) Gastritis (K29.70) Active confirmed Problem Well adult (952724502) Well adult (Z00.00) Active confirmed Problem Cellulitis (443218746) Cellulitis (L03.90) Active confirmed Problem Alopecia (06256890) Hair loss (L65.9) Active confirmed Problem Chronic obstructive pulmonary disease (95186450) Chronic asthmatic bronchitis with acute exacerbation (J44.9) Active confirmed Problem Pain in right foot (558088474478761) Pain in right foot (M79.671) Active confirmed Problem Otitis externa (3689846) Otitis externa (H60.90) Active confirmed Problem Menstrual disorder (891848105) Irregular menses (N92.6) Active confirmed Problem Acute gastroenteritis (28375987) Acute gastroenteritis (K52.9) Active confirmed Problem Internal derangement of knee (59041168) Internal derangement of knee (M23.90) Active confirmed Problem Shoulder impingement syndrome (274769650) Shoulder impingement syndrome (M75.40) Active confirmed Problem Sleep disturbance (84258943) Other sleep disturbances (G47.8) Active confirmed Problem Diabetes mellitus (44541060) Diabetes mellitus (E11.9) Active confirmed Problem Disease caused by Severe acute respiratory syndrome coronavirus 2 (disorder) (662265628) COVID-19 virus infection (U07.1) Active confirmed Vital Signs Blood pressure diastolic 64 mm Hg 03/07/2024 Height 64 in 03/07/2024 Blood pressure systolic 104 mm Hg 03/07/2024 Weight 170.0 lbs 03/07/2024 BMI 29.18 kg/m2 03/07/2024 Encounters Encounter Location Date Provider [facility] [address] [facility] [address] 02/27/2024 Polo Hoffman [facility] [address] [facility] [address] 03/21/2024 Polo Aminheather [facility] [address] [place] [address] 03/27/2024 Polo Hoffman Pre-procedural exami [facility] emergency department Z01.818 [facility] [address] [place] [address] 04/04/2024 Polo Brennanheather Meniscus tear, right , initial encounter S83.206A [facility] [address] [facility] [address] 04/14/2024 Polo Lydia [facility] [address] [facility] [address] 02/24/2024 Polo Lydia Internal derangement of knee M23.90 [facility] [address] [place] [address] 03/07/2024 Polo Lydia Acute gastroenteriti s K52.9 and Internal derangement of knee M23.90 Assessments Encounter Date Diagnosis (ICD Code) Assessment Notes Treatment Notes Treatment Clinical Notes Section Notes 02/24/2024 Internal derangement of knee (ICD-10 - M23.90) 03/07/2024 Acute gastroenteritis (ICD-10 - K52.9) 03/07/2024 Internal derangement of knee (ICD-10 - M23.90) 03/27/2024 Pre-procedural examination (ICD-10 - Z01.818) 04/04/2024 Meniscus tear, right, initial encounter (ICD-10 - S83.206A) Plan Of Treatment Pending Test Test Name Order Date CMP (COMPLETE METABOLIC PANEL) CULTURE, STOOL 03/07/2024 HEMOGLOBIN A1C (GLYCO) 07/09/2023 IRON, TOTAL 07/09/2023 LIPID PANEL (CHOL/TRIG/HDL/LDL) 01/26/20 24 CBC WITH DIFF 07/09/2023 VITAMIN D, 25 LEVEL (TOTAL) 07/09/2023 Insulin Level 07/09/2023 C DIFF TOX PCR STOOL 03/07/2024 XR Orbits Complete 03/27/2024 MRI KNEE RT WO CON 03/07/2024 THYROID PANEL (T4/TSH/FREE T3) SARS-CoV-2 KEKE 07/27/2023 SARS-CoV-2 KEKE 07/27/2023 Insurance Providers Payer Name Payer Address Payer Phone Subscriber Number Group Number Insured Name Patient Relationship to Insured Coverage Start Date Coverage End Date [employer] [place] [employer] [address] [address] [place] [phone] [id number] Keli Estrada Self - patient is the insured 3 Medical (General) History Medical History History ICD Code Shoulder impingement syndrome M75.40 Over weight E66.3 Asthma J45.909 COVID-19 virus infection U07.1 Cellulitis L03.90 Otitis externa H60.90 Well adult Z00.00 Pain in right foot M79.671 Acute sinusitis J01.90 Obstructive sleep apnea G47.33 Localization-related (focal) (partial) symptomatic epilepsy and epileptic syndromes with complex partial seizures, not intractable, without status epilepticus G40.209 Other sleep disturbances G47.8 Insomnia G47.00 Chronic asthmatic bronchitis with acute exacerbation J44.9 Tinea corporis B35.4 Gastritis K29.70 Hair loss L65.9 Irregular menses N92.6 Acanthosis nigricans L83 Hirsutism L68.0 Allergic rhinitis J30.9 Diabetes mellitus E11.9 Seizure R56.9 Obese E66.9 Surgical History Surgery Date(Month/Year) Tonsilectomy [place] Teeth Extraction Partial Hysterectomy
--- OUTSIDE RECORDS SUMMARY | 2025-02-15 10:56 | XMS_ITS | Clinical Summary ---
Author Organization [facility] Address [id number] [address] [place] [address] Care Team Providers Care Automatic I Threading Machine Feeder Name Role Phone Sarbjit Freeman MD Primary Care Provider [phone] Allergies Active Allergy Reactions Criticality Noted Date Comments Sulfamethoxazole-Trimethoprim Hives,Swelling Clarithromycin Hives,Swelling 10/12/2016 Tobramycin Swelling,Fever 10/12/2016 Medications mometasone/formote rol (DULERA INHL) Inhale. Ac tive albuterol (PROVENTIL HFA;VENTOLIN HFA) 90 mcg/actuation inhaler Inhale 2 puffs every 6 (six) hours as needed for wheezing. Active budesonide (PULMICORT) 1 mg/2 mL nebulizer solution Inhale 1 mg by nebulization once daily. Active ondansetron ODT (ZOFRAN ODT) 4 mg disintegrating tablet Dissolve 1 tablet (4 mg total) on tongue every 8 (eight) hours as needed for nausea for up to 10 doses. 10 tablet 06/22/19 23 Active diphenhydrAMINE (BENADRYL) 25 mg capsule Take 1 capsule (25 mg total) by mouth every 6 (six) hours as needed for itching. Active tiZANidine (ZANAFLEX) 4 mg tablet Take 1 tablet (4 mg total) by mouth every 6 (six) hours as needed for muscle spasms. Active lidocaine (LIDODERM) 5 % Place 1 patch on the skin daily. Remove & Discard patch within 12 hours or as directed by MD 30 patch 04/06/20 23 Active ketorolac (TORADOL) 10 mg tablet Take 1 tablet (10 mg total) by mouth every 6 (six) hours as needed for pain. 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 Overview (03/14/2018): problem replaced by 2018 ICD 10 March Update Asthma 11/02/2016 Seizures 11/02/2016 S/P tonsillectomy 11/02/2016 Tonsillitis and adenoiditis, chronic 10/16/2016 Polycystic ovaries 02/20/2016 Hirsutism 02/14/2016 Acanthosis nigricans 02/14/2016 Family History Medical History Relation Name Comments Depression Mother bipolar, anxiet y Relation Name Status Comments Father Alive Mother Alive Social History Tobacco Use Types Packs/Day Years Used Date Smoking Tobacco: Former Cigarettes 0.3 5 Cigars Smokeless Tobacco: Never Tobacco Cessation:Counseling Given: Not Answered Alcohol Use Standard Drinks/Week Comments No 0 (1 standard drink = 0.6 oz pur e alcohol) Childcare Answer Date Recorded Childcare Unknown 11/20/2018 Employment Answer Date Recorded Employment Unknown 11/20/2018 Hunger Screening Answer Date Recorded Within the past 12 months we worried whether our food would run out before we got money to buy more. Never True 05/14/2023 Within the past 12 months th e food we bought just didn't last and we didn't have money to get more. Never True 05/14/2023 Purpose - Life Answer Date Recorded Purpose and direction in life Unknown Comments No Sex and Gender Information Value Date Recorded Sex Assigned at Not on file Legal Sex Female 5:47 PM EDT Gender Identity Not on file Sexual Orientation Not on file Last Filed Vital Signs Vital Sign Reading Time Taken Comments Blood Pressure 120/62 05/14/2023 6:53 PM EST Pulse 66 05/14/2023 6:53 PM EST Temperature 36.6 C (97.8 F) 05/14/2023 6:53 PM EST Respiratory Rate 16 05/14/2023 6:53 PM EST Oxygen Saturation 98% 05/14/2023 6:53 PM EST Inhaled Oxygen Concentration - - Weight 75.8 kg (167 lb) 05/14/2023 5:25 PM EST Height 162.6 cm (5' 4 ) 05/14/2023 5:25 PM EST Body Mass Index 28.67 05/14/2023 5:25 PM EST Plan of Treatment Health Maintenance Due Date Last Done Comments Depression Screening 2010 Adult BMI Screening 05/14/2024 05/14/2023 Tobacco Screening 05/14/2024 05/14/2023 Influenza Vaccine 02/12/2025 07/10/2015 DTaP,Tdap and Td Vaccines (5 - Td or Tdap) 08/21/2025 08/22/2015, 02/12/2006, 10/22/2005, Additional history exists Medical Devices Not on file Insurance [employer] Care Teams Automatic I Threading Machine Feeder Relationship Specialty Start Date End Date Sarbjit Freeman MD PCP - General 05/14/23
--- OUTSIDE RECORDS SUMMARY | 2025-02-15 10:56 | XMS_ITS | Clinical Summary ---
Author Organization [facility] Address [address] [place] [id number] Care Team Providers Care Aircraft Painter Name Role Phone Sarbjit Freeman MD Primary Care Provider [phone] Serg Rees MD Unavailable [phone] Allergies Active Allergy Reactions Criticality Noted Date Comments Sulfamethoxazole-Trimethoprim Hives,Swelling Clarithromycin Rash,Swelling,Shortn ess of Breath 02/14/2016 Seasonal Allergies Itching 02/14/2016 Tobramycin Other: See Comments,Swelling 10/12/2016 Medications Cetirizine 10 mg cap Take 1 Tablespoonful by mouth. Active albuterol HFA (PROVENTIL HFA, VENTOLIN HFA) 90 mcg/actuation inhaler INHALE 2 PUFFS QID PRN. START WITH 2 PUFFS 30 MINUTES BEFORE PRACTICE 5 03/05/20 19 Active ondansetron orally disintegrating (ZOFRAN ODT) 4 mg disintegrating tablet DISSOLVE 1 T ON THE TONGUE QID PRN 11 01/19/20 19 Active DULERA 100-5 mcg/actuation inhaler INHALE 2 PUFFS PO INTO THE LUNGS BID 11 03/09/20 19 Active cyclobenzaprine (FLEXERIL) 5 mg tabletIndications :High-tone pelvic floor dysfunction,Myofa scial muscle pain,Pudendal neuralgia Take 1-2 tablets by mouth at bedtime as needed. 30 tablet 2 02/05/20 21 Active baclofen vaginal suppository 10 mg (CPD)Indications: High-tone pelvic floor dysfunction,Myofa scial muscle pain,Pudendal neuralgia Unwrap and insert one suppository once daily at bedtime as directed. 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 High-tone pelvic floor dysfunction 02/23/2018 Myofascial muscle pain 02/23/2018 Secondary dysmenorrhea 02/23/2018 Tenderness of uterine cervix 02/23/2018 Leg length discrepancy 02/23/2018 PCOS (polycystic ovarian syndrome) 02/20/2016 Hirsutism 02/14/2016 Irregular periods 02/14/2016 Abnormal weight gain 02/14/2016 Acanthosis nigricans 02/14/2016 Family History Medical History Relation Comments dyslipidemia [Other] No Family History Social History Tobacco Use Types Packs/Day Years Used Date Smoking Tobacco: Some Days Smokeless Tobacco: Never Comments:5 cigs per day Alcohol Use Standard Drinks/Week Comments No 0 (1 standard drink = 0.6 oz pur e alcohol) Area Deprivation Index Answer Date Silverio rded National Score (1-100), lower number is lower ri sk Not on file 05/23/2020 State Score (1-10), lower number is lower risk N ot on file 05/23/2020 Data from: https://www.neighborhoodatlas.medicine.[facility].edu/. Last address used for calculation Not on file 05/23/2020 Comments No Sex and Gender Information Value Date Recorded Sex Assigned at Not on file Legal Sex Female 2:06 PM EDT Gender Identity Not on file Sexual Orientation Not on file Last Filed Vital Signs Vital Sign Reading Time Taken Comments Blood Pressure 121/69 02/04/2021 1:31 PM EDT Pulse 63 05/30/2019 3:14 PM EST Temperature 36.3 C (97.3 F) 05/03/2019 9:44 AM EST Respiratory Rate 18 05/03/2019 9:57 AM EST Oxygen Saturation 97% 05/30/2019 3:14 PM EST Inhaled Oxygen Concentration - - Weight 89.8 kg (198 lb) 02/04/2021 1:31 PM EDT Height 162.6 cm (5' 4 ) 02/04/2021 1:31 PM EDT Body Mass Index 33.99 02/04/2021 1:31 PM EDT Plan of Treatment Health Maintenance Due Date Last Done Comments Peds To Adult Transition Ini tial Discussion 2010 Peds To Adult Transition Veronica ual Assessment 2012 HPV Vaccine (3 - 3-dose series) 02/22/2016 6, 08/22/2015 Anxiety Screening 2016 Depression Screening 2016 HIV Screening 2016 Hepatitis C Screening 2016 Cervical Cancer Screening 2019 Influenza Vaccine (#1) 2025 07/10/2015 DTaP,Tdap,Td Vaccine (5 - Td or Tdap) 08/21/2025 08/22/2015, 02/12/2006, 10/22/2005, Additional history exists Hepatitis B Vaccine Completed 02/12/2006, 10/22/2005, 07/22/2005, Additional history [place] [address] [employer] [place] OF [place] Care Teams Aircraft Painter Relationship Specialty Start Date End Date Sarbjit Freeman MD PCP - General Family Medicine 01/08/16 Serg Rees MD [address] [facility] [address] [place] [id number] Referring Obstetrics 03/02/19
--- OUTSIDE RECORDS SUMMARY | 2025-02-15 10:56 | XMS_ITS | Clinical Summary ---
Author Organization [facility] Address [address] [place] [address] Care Team Providers Care Hearing Aid Specialist Name Role Phone Unallocated, Noms Provider Primary Care Provi [email or web address] Allergies Active Allergy Reactions Criticality Noted Date Comments Amoxicillin Hives 11/02/2023 Clarithromycin High 10/27/2022 Sulfamethoxazole Hives 10/08/2017 Sulfamethoxazole-Trimethoprim Hives,Swelling,Unknown 10/12/2016 Tobramycin High 10/27/2022 Trimethoprim Hives 10/08/2017 Medications Cyclobenzaprine HCl (FLEXERIL PO) Flexeril Active Ondansetron HCl (ZOFRAN PO) Zofran Active albuterol HFA 90 mcg/act inhaler Inhale 2 puffs every 6 (six) hours if needed Active albuterol (2.5 MG/3ML) 0.083% nebulizer solution every 6 (six) hours Active budesonide (Pulmicort) 1 MG/2ML nebulizer solution every 12 (twelve) hours Active diphenhydrAMINE (BENADryl) 25 MG capsule Take 25 mg by mouth every 6 (six) hours if needed Active Dulera 100-5 MCG/ACT inhaler every 12 (twelve) hours Active guanFACINE (Tenex) 2 MG tablet Take by mouth Active Active Problems Problem Noted Date Diagnosed Date Other insomnia 03/24/2024 Obesity 03/24/2024 Seizure 03/24/2024 Depression 03/24/2024 Hot flashes due to menopause 10/27/2022 Hyperandrogenism 10/27/2022 Interstitial cystitis 10/27/2022 Major depressive disorder, single episode, unspe cified 10/27/2022 Chronic pelvic pain in female 10/27/2022 Pain in female genitalia on intercourse 10/28/19 23 Postcoital bleeding 10/27/2022 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, nonorganic Seizure disorder Obesity (BMI 35.0-39.9 without comorbidity) Sleep disturbance Insomnia Obstructive sleep apnea Epilepsy Family History Medical History Relation Name Comments Lung cancer Mother's Brother Relation Name Status Comments Mother's Brother Social History Tobacco Use Types Packs/Day Years Used Date Smoking Tobacco: Every Day Cigarettes Smokeless Tobacco: Never Tobacco Cessation:Counseling Given: Not Answered Alcohol Use Standard Drinks/Week Comments Yes 0 (1 standard drink = 0.6 oz pur e alcohol) caffeine: 1-2 cups per day AUDIT-C Answer Date Recorded Q1: How often do you have a drink containing alc ohol? Monthly or less 03/24/2024 Q2: How many drinks containi ng alcohol do you have on a typical day when you are drinking? 1 or 2 03/24/2024 Q3: How often do you have si x or more drinks on one occasion? Never 03/24/2024 Comments No Sex and Gender Information Value Date Recorded Sex Assigned at Not on file Legal Sex Female 7:30 PM EDT Gender Identity Female 08/26/2022 7:30 PM EDT Sexual Orientation Bisexual 08/26/2022 7: 30 PM EDT Last Filed Vital Signs Vital Sign Reading Time Taken Comments Blood Pressure 104/66 04/04/2024 1:14 PM EDT Pulse 60 04/04/2024 1:14 PM EDT Temperature - - Respiratory Rate - - Oxygen Saturation 100% 04/04/2024 1:14 PM EDT Inhaled Oxygen Concentration - - Weight 78.9 kg (174 lb) 04/04/2024 1:14 PM EDT Height 162.6 cm (5' 4 ) 04/04/2024 1:14 PM EDT Body Mass Index 29.87 04/04/2024 1:14 PM EDT Plan of Treatment Health Maintenance Due Date Last Done Comments Influenza Vaccine (#1) 2025 07/10/2015 Insurance MEDICAID [place] Care Teams Hearing Aid Specialist Relationship Specialty Start Date End Date Unallocated, Noms Provider, [address] [place] [address] PCP - General Family Medicine 11/11/23
--- NOTE | 2025-02-15 11:02 | PC.NURSE ---
right knee pain when pt extends this knee, pt able to flex back with no problem. pt aware of previous small tear to right knee as she has seen Orthopedic Dr for this in the past. Pt currently has appt on Mon with this Orthopedic DR. Pt ambulated to ER Rm 1 with slight limp
--- OUTSIDE RECORDS SUMMARY | 2025-02-15 11:02 | XMS_ITS | CCD ---
Author Organization [facility] Care Team Providers Care Highway Landscape Architect Name Role Phone DALTON ., DR CONNELL Primary Care Unavailable HAY ., DR PINO Admitting Unavailable HAY ., DR PINO Attending Unavailable HAY ., DR PINO Consulting Unavailable NÉSTOR JOHNSTON Consulting Unavailable HOY ., DR CONNELL Admitting Unavailable HOY ., DR CONNELL Attending Unavailable HOY ., DR CONNELL Primary Care Unavailable ABDIRASHIDY ., DR CONNELL Consulting Unavailable PRINTSaumya, DR GAY Consulting Unavailable NGOC GODFREY Admitting Unavailable NGOC GODFREY Attending Unavailable DALTON ., DR CONNELL Primary Care Unavailable NGOC GODFREY Consulting Unavailable HOY ., DR CONNELL Admitting Unavailable HOY ., DR CONNELL Attending Unavailable ABDIRASHIDY ., DR CONNELL Primary Care Unavailable MD Ko Freeman Primary Care Provider [phone] MD Deidra Rees Attending Provider Deidra Rees Admitting Unavailable Deidra Rees Attending Unavailable Ko Freeman Primary Care Unavailable Unallocated , Noms Provider Primary Care Provi marychuy DEIDRA REES Attending Unavailable SIXTO ALBRECHT Attending Unavailable Allergies Allergy Classification Reported Allergen(s) Allergy Type Date of Onset Reaction(s) Facility (1 source) Amoxicillin Drug Allergy 0 [facility] Repository (1 source) Clarithromycin Drug Allergy 4 [facility] (1 source) Phentolamine Drug Allergy 4 [facility] (1 source) Sulfamethoxazole / Trimethoprim Drug Allergy 7 [facility] Repository (5 sources) Clarithromycin; Translations: [clarithromycin] Drug Allergy 8 Hives [facility] (5 sources) Sulfamethoxazole; Translations: [sulfamethoxazole] Drug Allergy 8 [facility] (5 sources) Tobramycin; Translations: [tobramycin] Drug Allergy 8 [facility] (5 sources) Trimethoprim; Translations: [trimethoprim] Drug Allergy 8 [facility] (3 sources) Amoxicillin Drug Allergy 4 Hives [facility] (3 sources) Sulfamethoxazole / Trimethoprim Drug Allergy 7 Hives, Swelling, Unknown [facility] Medications Current Medications Medication Drug Class(es) Dates Sig (Normalized) Sig (Original) albuterol 0.83 mg/ml inhalation solution (7 sources) beta2-Adrenergic Agonist Start: 10-08-2017 Albuterol Sulfate Active October 08, 2017 12:00am albuterol (2.5 M G/3ML) 0.083% nebulizer solution every 6 (six) hours Active take 2 puff(s) by in halation every six hours albuterol HFA 90 mcg/act inhaler Inhale 2 puffs every 6 (six) hours if needed Active budesonide 0.5 mg/ml inhalation suspension (4 sources) Corticosteroid Start: 10-08-2017 Budesonide Act sabra October 08, 2017 12:00am budesonide (Pulm icort) 1 MG/2ML nebulizer solution every 12 (twelve) hours Active cetirizine hydrochloride 10 mg oral tablet (4 sources) Histamine-1 Receptor Antagonist Start: 10-08-2017 Cetirizine Active TABLET October 08, 2017 12:00am End: 05-29-2024 Cetirizine HCl 10 MG capsule Take 1 Tbsp by mouth 05/29/2024 Discontinued (Med list cleanup) cyclobenzaprine (3 sources) Muscle Relaxant Cyclobenzaprine HCl (FLEXERIL PO) Flexeril Active diphenhydrAMINE hydrochloride 25 mg oral capsule (4 sources) Histamine-1 Receptor Antagonist Start: 10-08-2017 Diphenhydramine Hcl (Benadryl) 25 mg Capsule Active October 08, 2017 12:00am take 1 capsule by mo ut every six hours as needed diphenhydrAMINE (BENADryl) 25 MG capsule Take 25 mg by mouth every 6 (six) hours if needed Active 60 actuat formoterol fumarate 0.005 mg/actuat / mometasone furoate 0.1 mg/actuat metered dose inhaler (3 sources) Corticosteroid, beta2-Adrenergic Agonist Dulera 100-5 MCG/ACT inhaler every 12 (twelve) hours Active guanFACINE 2 mg oral tablet (3 sources) Central alpha-2 Adrenergic Agonist guanFACINE (Tenex) 2 MG tablet Take by mouth Active ibuprofen 600 mg oral tablet (1 source) Nonsteroidal Anti-inflammatory Drug Start: 10-09-19 18 take 600 mg by mouth every six hours Ibuprofen Active 600 MG PO Q6H October 08, 2017 12:00am Ondansetron (3 sources) Serotonin-3 Receptor Antagonist Ondansetron HCl (ZOFRAN PO) Zofran Active Completed/Discontinued Medications Medication Drug Class(es) Dates Sig (Normalized) Sig (Original) acetaminophen 325 mg / HYDROcodone bitartrate 5 mg oral tablet (1 source) Opioid Agonist Start: 10-08-2017 End: 10-15-2017 take 1 tablet by mouth every four to six hours Hydrocodone-Acetami nophen ([place]) 5-325 mg tablet Discontinued 1 TAB PO EVERY 4-6 HOURS 10 01October 08, 2017 October 15, 2017 12:01am Problems Active Problems Problem Classification Problem Date Documented Date Episodic/Chronic Attention-deficit, conduct, and disruptive behavior disorders (3 sources) Attention-deficit hyperactivity disorder, unspecified type; Translations: [ADHD UNSPECIFIED TYPE] Onset: 2 Chronic Epilepsy; convulsions (8 sources) Seizure disorder; Translations: [Epilepsy, unspecified, not intractable, without status epilepticus] 03-24-2024 Chronic Epilepsy; convulsions (3 sources) Seizure; Translations: [Unspecified convulsions] Onset: 4 03-24-2024 Episodic Inflammatory diseases of female pelvic organs (3 sources) Salpingitis isthmica nodosa; 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] Onset: 3 10-27-2022 Chronic Menopausal disorders (3 sources) Menopausal flushing; Translations: [Menopausal and female climacteric states] Onset: 3 10-27-2022 Chronic Miscellaneous mental health disorders (3 sources) Non-organic sleep disorder; Translations: [Sleep disorder not due to a substance or known physiological condition, unspecified] 03-24-2024 Chronic Mood disorders (8 sources) Major depressive disorder, single episode, unspecified; Translations: [Major depression, single episode] Onset: 3 Chronic Other endocrine disorders (3 sources) Hyperandrogenization syndrome; 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] Onset: 3 10-27-2022 Chronic Other female genital disorders (3 sources) Pain in female genitalia on intercourse; Translations: [Unspecified dyspareunia] Onset: 3 10-27-2022 Chronic Other female genital disorders (3 sources) Postcoital bleeding; Translations: [Postcoital and contact bleeding] Onset: 3 10-27-2022 Chronic Other nutritional; endocrine; and metabolic disorders (3 sources) Obesity; Translations: [Obesity, unspecified] Onset: 4 03-24-2024 Chronic Other nutritional; endocrine; and metabolic disorders (3 sources) Body mass index 30+ - obesity; Translations: [Obesity, unspecified] 03-24-2024 Chronic Residual codes; unclassified (3 sources) Insomnia; Translations: [Other insomnia] Onset: 4 03-24-2024 Chronic Residual codes; unclassified (5 sources) Obstructive sleep apnea syndrome; Translations: [Obstructive sleep apnea (adult) (pediatric)] 03-24-2024 Chronic Residual codes; unclassified (3 sources) Disturbance in sleep behavior; Translations: [Sleep disorder, unspecified] 03-24-2024 Episodic Residual codes; unclassified (3 sources) Insomnia; Translations: [Insomnia, unspecified] 03-24-2024 Episodic Substance-related disorders (1 source) Nicotine dependence, cigarettes, uncomplicated; Translations: [NICOTINE DEPEND CIGARETTES UNCOMP] Onset: 2 Chronic Unclassified (4 sources) CONTACT W/AND (SUSP) EXPOS COVID-19; Translations: [CONTACT W/AND (SUSP) EXPOS COVID-19] Onset: 2 Unclassified (3 sources) COUGH, UNSPECIFIED; Translations: [COUGH, UNSPECIFIED] Onset: 2 Urinary tract infections (3 sources) Chronic interstitial cystitis; Translations: [Interstitial cystitis (chronic) without hematuria] Onset: 10-27-2022 Chronic Past or Other Problems Problem Classification Problem Date Documented Da te Episodic/Chronic Abdominal pain (4 sources) Pelvic and perineal pain; Translations: [Chronic pelvic pain of female] Onset: 09-07-2022 10-27-2022 Episodic Nonspecific chest pain (3 sources) Chest pain, unspecified; Translations: [CHEST PAIN UNSPECIFIED] Onset: 02-25-2022 Episodic Other aftercare (1 source) Other alley worker (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) 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 therapy; Translations: [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 CURRENT DRUG THERAPY] Onset: 02-27-2022 Episodic Pleurisy; pneumothorax; pulmonary collapse (1 source) Pleurisy; Translations: [PLEURISY] Onset: 02-27-2022 Episodic Unclassified (1 source) CONTACT W/AND (SUSP) EXPOS COVID-19; Translations: [CONTACT W/AND (SUSP) EXPOS COVID-19] Onset: 09-03-2022 Unclassified (1 source) COUGH, UNSPECIFIED; Translations: [COUGH, UNSPECIFIED] Onset: 06-10-2022 Results Test Name Value Interpretation Reference Range Facil ity Nilson 09-07-2022 L - -------- Specimen: [id number] Received: 09/07/22 Status: SANJUANITA Martinez Num: [id number] Spec Type: Surgical Subm Dr: DEIDRA REES MD Tissues: A Uterus w/ or w/o tubes ovaries except neoplastic or prolap (CERVIX, MARÍA FT Procedures: HE/8, Gross/Micro L5 -------- Age/ Patient Sex Location Account Attending Physician -------- NatalieKeli tam [place] [id number] DEIDRA REES MD -------- SPEC NUM: [id number] RECD: 09/07/22 STATUS: SANJUANITA HENRIQUEZ NUM: [id number] NESS: 09/07/22- [facility] DR: DEIDRA REES MD ENTERED: 09/07/[address] [facility] [address]: [facility] SPEC TYPE: Surgical DEPT: S ORDERED: HE/8, Gross/Micro L5 ORDERED: HE8, Gross/Micro L5 Pathological Diagnosis Uterus, cervix, bilateral [...] smooth-walled, clear fluid-filled cyst is -------- Specimen: [id number] Received: 09/07/22 Status: CHRISTIANNila Martinez Num: [id number] Spec Type: Surgical Subm Dr: DEIDRA REES MD Tissues: A Uterus w/ or w/o tubes ovaries except neoplastic or prolap (CERVIX, MARÍA FT Procedures: HE/8, Gross/Micro L5 -------- Patient: Keli Estrada [id number] (Continued) -------- Specimen: [id number] Received: 09/07/22 (Continued) Gross Description (Continued) Signed (signature on file) Julia Ballesteros MD 09/08/22 1316 -------- Specimen: [id number] Received: 09/07/22 Status: SANJUANITA Henriquez Num: [id number] Spec Type: Surgical Subm Dr: DEIDRA REES MD Tissues: A Uterus w/ or w/o tubes ovaries except neoplastic or prolap (CERVIX, MARÍA FT Procedures: Manjit [place]/Alice L5 -------- Patient: Keli Estrada [id number] (Continued) -------- Specimen: [id number] Received: 09/07/22-1239 (Continued) Gross Description (Continued) identified in the attached fat pad. The fallopian tube has a pinpoint lumen on cut section. Project Management Professional sections are submitted in 8 cassettes as [...] support the above pathologic diagnosis. CPT Codes 66675 -------- (more content not included)... Normal [facility] Covid-19 PCR ([facility])on 08-13 SARS-CoV-2 (COVID-19) RNA KEKE+probe Ql (Unsp spec) Not detected Normal NOT DETECTED [facility] Comment on above: Result Comment: This test is not yet approved or cleared by the [place] FDA. When there are no FDA-approved or cleared tests available, and other criteria are met, FDA can make tests available under an emergency access mechanism called an Emergency Use Authorization (EUA). The EUA for this test is supported by the Middle Card Tender of Health and Human Service's (HHS's) declaration [...] consistent with SARS-CoV-2. Performed By: #### C VDTBH #### [facility] [address] [place] [id number] [address] N[address] Leonardo Covid-19 PCR ([facility])on 05-15 SARS-CoV-2 (COVID-19) RNA KEKE+probe Ql (Unsp spec) Not detected Normal NOT DETECTED [facility] Comment on above: Result Comment: When diagnostic [...] for this test is supported by the Middle Card Tender of Health and Human Service's declaration that [...] used). Performed By: #### C VDTB #### [facility] [address] [place], [place] [id number] Dr. Ning Leonardo INFLUENZA A AND B AGon 06-10 INFLUANEGH SEE BELOW Normal [facility] Comment on above: Result Comment: Nega tive for Flu A protein angiten. Infection due to Flu A cannot be ruled out. Flu A angiten in the sample may be below the detection limit of the test. Performed By: #### I NFLUAB #### [facility] [address] [place] [address] Dr. Ning Leonardo [facility] SEE BELOW Normal [facility] Comment on above: Result Comment: Nega tive for Flu B protein antigen. Infection due to Flu B cannot be ruled out. Flu B antigen in the sample may be below the detection limit of the test. Performed By: #### I NFLUAB #### [facility] [address] [place] [address] Dr. Ning Leonardo INFLUENZA A AG Negative Normal NEGATIVE SEE COMMENT [facility] Comment on above: Performed By: #### I NFLUAB #### [facility] [address] [place] [address] Dr. Ning Leonardo INFLUENZA B AG Negative Normal NEGATIVE SEE COMMENT [facility] Comment on above: Performed By: #### I NFLUAB #### [facility] [address] [place] [address] Dr. Ning Leonardo CBC AUTO DIFFon 02-25-2022 BASO # 0.0 103/ul Normal 0.0-0.1 [facility] Comment on above: Performed By: #### C BC #### [facility] [address] [place] [address] Dr. Ning Leonardo Basophils/100 WBC (Bld) 0.8 % Normal 0.2-2.0 [facility] Comment on above: Performed By: #### C BC #### [facility] [address] [place] [address] Dr. Ning Leonardo EO # 0.3 103/ul Normal 0.0-0.7 [facility] Comment on above: Performed By: #### C BC #### [facility] [address] [place] [address] Dr. Ning Leonardo Eosinophils/100 WBC (Bld) 6.2 % Normal 0.9-7.0 [facility] Comment on above: Performed By: #### C BC #### [facility] [address] [place] [address] Dr. Ning Leonardo Erythrocyte distribution width (RBC) [Ratio] 13.1 % Normal 11.0-15.0 [facility] Comment on above: Performed By: #### C BC #### [facility] [address] [place] [address] Dr. Ning Leonardo Hematocrit (Bld) [Volume fraction] 39.7 % Normal 36.0-48.0 [facility] Comment on above: Performed By: #### C BC #### [facility] [address] [place] [address] Dr. Ning Leonardo Hemoglobin (Bld) [Mass/Vol] 13.3 g/dL Normal 12.0-16.0 [facility] Comment on above: Performed By: #### C BC #### [facility] [address] [place] [address] Dr. Ning Leonardo IG # 0.03 10e3/ul Normal 0.00-0.03 [facility] Comment on above: Performed By: #### C BC #### [facility] [address] [place] [address] Dr. Ning Leonardo IG % 0.6 % Critically high 0.0-0.5 [facility] Comment on above: Performed By: #### C BC #### [facility] [address] [place] [address] Dr. Ning Leonardo LYMPH # 1.0 103/ul Critically low 1.2-3.8 [facility] Comment on above: Performed By: #### C BC #### [facility] [address] [place] [address] Dr. Ning Leonardo Lymphocytes/100 WBC (Bld) 18.8 % Critically low 20.5-60.0 [facility] Comment on above: Performed By: #### C BC #### [facility] [address] [place] [address] Dr. Ning Leonardo MANUAL DIFF REQ NO Normal [facility] Comment on above: Performed By: #### C BC #### [facility] [address] [place] [address] Dr. Ning Leonardo MCH (RBC) [Entitic mass] 32.5 pg Normal 26.7-34.0 [facility] Comment on above: Performed By: #### C BC #### [facility] [address] [address] [address] Ning Leonardo MCHC (RBC) [Mass/Vol] 33.5 g/dL Normal 29.9-35.2 [facility] Comment on above: Performed By: #### C BC #### [facility] [address] [place] [address] Dr. Ning Leonardo MCV (RBC) [Entitic vol] 97.1 fL Normal 81.0-99.0 [facility] Comment on above: Performed By: #### C BC #### [facility] [address] [place] [address] Dr. Ning Leonardo MONO # 0.6 103/ul Normal 0.3-0.8 [facility] Comment on above: Performed By: #### C BC #### [facility] [address] [place] [address] Dr. Ning Leonardo Monocytes/100 WBC (Bld) 11.6 % Normal 1.7-12.0 [facility] Comment on above: Performed By: #### C BC #### [facility] [address] [place] [address] Dr. Ning Leonardo NEUT # 3.2 103/ul Normal 1.4-6.5 [facility] Comment on above: Performed By: #### C BC #### [facility] [address] [place] [address] Dr. Ning Leonardo Neutrophils/100 WBC (Bld) 62.0 % Normal 43.0-75.0 [facility] Comment on above: Performed By: #### C BC #### [facility] [address] [place] [address] Dr. Ning Leonardo Platelet mean volume (Bld) [Entitic vol] 11.1 fL Normal 9.5-13.5 [facility] Comment on above: Performed By: #### C BC #### [facility] [address] [place] [address] Dr. Ning Leonardo PLT 143 103/ul Critically low 150-450 [facility] Comment on above: Performed By: #### C BC #### [facility] [address] [address] [address] Ning Leonardo RBC 4.09 106/ul Critically low 4.20-5.40 [facility] Comment on above: Performed By: #### C BC #### [facility] [address] [id number] [address] Ning Leonardo WBC 5.2 103/ul Normal 4.0-11.0 [facility] Comment on above: Performed By: #### C BC #### [facility] [address] [address] [address] Ning Leonardo CTA CHEST WO W [...] by: NÉSTOR JOHNSTON Date: 2022-02-25 17:[address] [facility] PROF CHEM 8 (BAS METB)on Anion gap [Moles/Vol] 5.6 mmol/L Normal [facility] Comment on above: Performed By: #### B ELIS HSTROPN #### [facility] [address] [address] [address] Ning Leonardo Calcium [Mass/Vol] 8.6 mg/dL Normal 8.5-10.1 [facility] Comment on above: Performed By: #### B ELIS HSTROPN #### [facility] [address] [address] [address] Ning Leonardo Chloride [Moles/Vol] 106 mmol/L Normal 98-107 [facility] Comment on above: Performed By: #### B MP, HSTROPN #### [facility] [address] [place] [address] Dr. Ning Leonardo CO2 [Moles/Vol] 28.9 mmol/L Normal 21.0-32.0 [facility] Comment on above: Performed By: #### B MP, HSTROPN #### [facility] [address] [address] [address] Ning Leonardo Creatinine [Mass/Vol] 0.60 mg/dL Normal 0.55-1.02 [facility] Comment on above: Performed By: #### B MP, HSTROPN #### [facility] [address] [place] [address] Dr. Ning Leonardo EGFR-AF KAZAKH >60 Normal >=60 [facility] Comment on above: Performed By: #### B MP, HSTROPN #### [facility] [address] [address] [address] Ning Leonardo EGFR-NON AF KAZAKH >60 Normal >=60 [facility] Comment on above: Performed By: #### B MP, HSTROPN #### [facility] [address] [place] [address] Dr. Ning Leonardo Glucose [Mass/Vol] 79 mg/dL Normal 74-106 [facility] Comment on above: Performed By: #### B MP, HSTROPN #### [facility] [address] [place] [address] Dr. Ning Leonardo Potassium [Moles/Vol] 4.5 mmol/L Normal 3.5-5.1 [facility] Comment on above: Result Comment: spec imen slightly hemolyzed Performed By: #### B MP, HSTROPN #### [facility] [address] [place] [address] Dr. Ning Leonardo Sodium [Moles/Vol] 136 mmol/L Normal 136-145 [facility] Comment on above: Performed By: #### B MP, HSTROPN #### [facility] [address] [address] [address] Ning Leonardo Urea nitrogen [Mass/Vol] 12.0 mg/dL Normal 7.0-18.0 [facility] Comment on above: Performed By: #### B MP, HSTROPN #### [facility] [address] [id number] [address] Ning Leonardo Urea nitrogen/Creatinine [Mass ratio] 20.0 mg/mg Normal [facility] Comment on above: Performed By: #### B MP, HSTROPN #### [facility] [address] [address] [address] Ning Leonardo TROPONIN, HIGH SENSITIVITYon 02-25-2022 HSTROP 4.8 pg/mL Normal 4.0-51.3 [facility] Comment on above: Result Comment: CUT- OFF POINTS HAVE BEEN ESTABLISHED BASED ON THE FOURTH UNIVERSAL DEFINITIONS OF MYOCARDIAL INFARCTION. THE UPPER REFERENCE LIMIT (URL) OF TROPONIN, DEFINED THE 99TH PERCENTILE OF cTnI DISTRIBUTION IN A REFERENCE POPULATION, HAS BEEN CONFIRMED THE DECISION THRESHOLD FOR VA DIAGNOSIS. Performed By: #### B MP, HSTROPN #### [facility] [address] [address] [address] Ning Palmer [facility] KELI ESTRADA ([id number]) 2000 F Date Time Provider Department 02/18/21 JACOBY REYES [facility] During your visit today, we recorded the following information about you: Lavern Rob Ma 02/18/2021 9:02 AM Signed Called patient and left a voice message to call the office back at [phone] option 3. Dear Keli This is a follow up phone call regarding your appointment with Dr. Reyes At [place] [facility]. Your appointment time is 2arrive at 1:40. [...] physician. 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, which means that he treats chronic pain [...] LAVERN ROB MA on 05/13/21 [facility] 02-12-2021 [facility]) KELI ESTRADA ([id number]) 2000 F Date Time Provider Department 02/12/21 JACOBY REYES [facility] During your visit today, we recorded the [...] Encounter Status:Closed by MYRTLE CHILD on 02/12/21 [facility] CNOVon 02-04-2021 CNOV Office Visit [facility] ) KELI ESTRADA ([id number]) 2000 F Date Time Provider Department 02/04/21 2:00 PM ALFIE CARD [facility] During your visit today, we recorded the following information about you: Blood pressure Weight Height 121/69 89.8 kg 1.626 m Alfie Card APRN.CNP 03/03/2021 10:53 PM Signed CHRONIC PELVIC PAIN [...] for abnormal hair growth. 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 Not on it now. 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 Never seen endocrinology Pudendal injection helped with tailbone pain. Has not been back to see Dr Reyes. Had a lot of relief for quite some time. Pelvic floor physical therapy for 1-2 months. No relief. Made it worse. Made better with Ibuprofen. Hoople - sometimes pain afterwards. 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 - baclofen vaginal sup (more content not included)... Normal [facility] Coding Summaryon 12-29-2019 Coding Summary CODING DATE: 12/29/2019 [facility] STATUS: Home PAYOR: Medicaid HMO [...] terminology. Coded By: Christoph Gonzalez' Date Saved: 12/29/2019 05:00 pm [facility] Coding Summary CODING DATE: 12/29/2019 FINAL [facility] STATUS: Home PAYOR: Medicaid HMO ADMIT DX: [...] terminology. Coded By: Christoph Gonzalez' Date Saved: 12/29/2019 04:59 pm Normal [facility] .Auto Diff 1on 12-21-2019 Auto [place] % 6 % Normal 1-12 [facility] Comment on above: Performed By: #### 1 [id number], [id number], 3498771, 06359555, [id number] ####[facility] (DEFAULT)[address] [place] [address] Baso Abs# 0.0 x10 Normal 0.0-0.2 [facility] Comment on above: Performed By: #### 1 [id number], [id number], 6169603, 55115892, [id number] ####[facility] (DEFAULT)[address] [place] [address]71 Basophils/100 WBC (Bld) 0.3 % Normal 0.2-2.0 [facility] Comment on above: Performed By: #### 1 [id number], 1185310239, 6717492, 92082798, [id number] ####[facility] (DEFAULT)[address] [place] [address] 76207 Eos Abs# 0.4 x10 Normal 0.0-0.4 [facility] Comment on above: Performed By: #### 1 [id number], 6256992311, 6635726, 08063788, [id number] ####[facility] (DEFAULT)[address] [place] [address]60 Eosinophils/100 WBC (Bld) 3.3 % Normal 0.9-4.0 [facility] Comment on above: Performed By: #### 1 [id number], 3884585099, 5894422, 43711529, 1317174518 ####[facility] (DEFAULT)[address] [place] [address] Lymphocytes (Bld) [#/Vol] 1.2 x10 Low 1.3-2.9 [facility] Comment on above: Performed By: #### 1 [id number], 1667328297, 6759862, 92087120, [id number] ####[facility] (DEFAULT)[address] [place] [address] Lymphocytes/100 WBC (Bld) 9 % Low 14-48 [facility] Comment on above: Performed By: #### 1 [id number], 4594486268, 2368017, 55173780, 4241368915 ####[facility] (DEFAULT)[address] [place] [address] [place] Abs# 0.8 x10 Normal 0.0-0.8 [facility] Comment on above: Performed By: #### 1 [id number], 9818706951, 3888443, 90315544, [id number] ####[facility] (DEFAULT)[address] [place] [address] Neut Abs# 10.5 x10 High 1.5-9.2 [facility] Comment on above: Performed By: #### 1 [id number], 6408942690, 0057628, 51191516, 3121278636 ####[facility] (DEFAULT)[address] [place] [address] Neutrophils/100 WBC (Bld) 81 % Normal 44-88 [facility] Comment on above: Performed By: #### 1 [id number], 5056165219, 8710983, 18399824, 9766264339 ####[facility] (DEFAULT)[address] [place] [address] CBC w/ Auto Diffon 0 Erythrocyte distribution width (RBC) [Ratio] 12.6 % Normal 11.5-15.0 [facility] Comment on above: Performed By: #### 1 [id number], 8608125116, 1890037, 40541566, 3348031503 ####[facility] (DEFAULT)[address] [place] [address] Hematocrit (Bld) [Volume fraction] 43.2 % High 33.7-40.4 [facility] Comment on above: Performed By: #### 1 [id number], 4177470872, 1958544, 78262981, 3889672677 ####[facility] (DEFAULT)[address] [place] [address] Hemoglobin (Bld) [Mass/Vol] 14.7 g/dL Normal 11.3-15.9 [facility] Comment on above: Performed By: #### 1 [id number], 6010098418, 9830274, 60075879, 5771992746 ####[facility] (DEFAULT)[address] [place] [address] Man Diff? Auto Normal [facility] Comment on above: Performed By: #### 1 [id number], 4519848814, 8036236, 18326400, 7435479596 ####[facility] (DEFAULT)[address] [place] [address] MCH (RBC) [Entitic mass] 32 pg Normal 24-34 [facility] Comment on above: Performed By: #### 1 385997786, 9205651796, 5308525, 95692410, 4242435149 ####[facility] (DEFAULT)[address] [place] [address] MCHC (RBC) [Mass/Vol] 34 g/dL Normal 26-37 [facility] Comment on above: Performed By: #### 1 [id number], 6278984912, 4290722, 73971960, 6384916471 ####[facility] (DEFAULT)[address] [place] [address] MCV (RBC) [Entitic vol] 92 fL Normal 81-100 [facility] Comment on above: Performed By: #### 1 [id number], 1939162355, 2016571, 25081216, 1390062369 ####[facility] (DEFAULT)[address] [place] [address] Platelet mean volume (Bld) [Entitic vol] 10.2 fL Normal 6.3-10.2 [facility] Comment on above: Performed By: #### 1 [id number], 9347861271, 8324415, 30068709, 3495706310 ####[facility] (DEFAULT)[address] [place] [address] Platelets (Bld) [#/Vol] 208 x10 Normal 138-427 [facility] Comment on above: Performed By: #### 1 [id number], 2999104138, 5347612, 06904696, 4090849836 ####[facility] (DEFAULT)[address] [place] [address] RBC (Bld) [#/Vol] 4.67 x10 Normal 3.70-5.30 [facility] Comment on above: Performed By: #### 1 [id number], 0292445372, 0641032, 84074811, 4940207796 ####[facility] (DEFAULT)[address] [place] [address] WBC (Bld) [#/Vol] 12.9 x10 [facility] Comment on above: Performed By: #### 1 [id number], 1103710561, 1416455, 39793633, 5617658831 ####[facility] (DEFAULT)[address] [place] [address] Standardon 12-21-2019 eGFR Non AA >60 [facility] Comment on above: Performed By: #### 1 [id number], 6048824, 31304726, 4703342, 5160208534, [id number] #### [facility] (DEFAULT) [address] [place] [address] eGFR AA >60 [facility] Comment on above: Result Comment: Management Coordinator angie Kidney disease could be indicated at eGFRs of less than 60 ml/min/1.73m2. Kidney Failure is indicated at less than 15 ml/min/1.73m2 Performed By: #### 1 434754626, 6871206, 73950665, 2886994, 1641893192, 7441089817 #### [facility] (DEFAULT) [address] [place] [address] Albumin [Mass/Vol] 3.9 g/dL Normal 3.5-5.0 [facility] Comment on above: Performed By: #### 1 179796821, 3528630, 24159380, 4779636, 3394869075, 7473903567 #### [facility] (DEFAULT) [address] [place] [address] Albumin/Globulin [Mass ratio] 1.3 {ratio} Low 1.4-2.6 [facility] Comment on above: Performed By: #### 1 [id number], 2901959, 91097580, 2127792, 0766394141, 1159543676 #### [facility] (DEFAULT) [address] [place] [address] Alk Phos 54 IU/L Normal 32-91 [facility] Comment on above: Performed By: #### 1 [id number], 3169814, 57287082, 0901898, 9256083213, 2553841205 #### [facility] (DEFAULT) [address] [place] [address] ALT/SGPT 23.0 IU/L Normal 14.0-54.0 [facility] Comment on above: Performed By: #### 1 521194456, 2511354, 53476096, 6009283, 4501729604, 1635072234 #### [facility] (DEFAULT) [address] [place] [address] 53378 Anion gap [Moles/Vol] 10.0 mmol/L Normal 5.0-19.0 [facility] Comment on above: Performed By: #### 1 [id number], 8413907, 52901367, 7881592, 4037087371, 8828896551 #### [facility] (DEFAULT) [address] [place] [address] 46322 AST/SGOT 17 IU/L Normal 15-41 [facility] Comment on above: Performed By: #### 1 [id number], 3671159, 34534370, 8538940, 2928045077, 7298341633 #### [facility] (DEFAULT) [address] [place] [address] 07113 Bili Total 0.5 mg/dL Normal 0.3-1.2 [facility] Comment on above: Performed By: #### 1 [id number], 2812142, 22883668, 4259229, 5320067979, 6235692515 #### [facility] (DEFAULT) [address] [place] [address] 68098 Calcium [Mass/Vol] 8.6 mg/dL Low 8.9-10.3 [facility] Comment on above: Performed By: #### 1 [id number], 8300614, 41091525, 9874663, 8387698785, 4442853053 #### [facility] (DEFAULT) [address] [place] [address] 97394 Chloride [Moles/Vol] 107 mmol/L Normal 101-111 [facility] Comment on above: Performed By: #### 1 [id number], 8434322, 32008709, 0759959, 9177625923, 4676419228 #### [facility] (DEFAULT) [address] [place] [address] 03392 CO2 [Moles/Vol] 23 mmol/L Normal 21-32 [facility] Comment on above: Performed By: #### 1 012729316, 2357752, 20312559, 7098121, 8000427414, 5530935802 #### [facility] (DEFAULT) [address] [place] [address] 86965 Creatinine [Mass/Vol] 0.85 mg/dL Normal 0.60-1.30 [facility] Comment on above: Performed By: #### 1 209488092, 5155975, 75516533, 5694762, 3526418502, 7996450882 #### [facility] (DEFAULT) [address] [place] [address] 88459 Globulin (S) [Mass/Vol] 2.9 g/dL Normal 1.5-4.3 [facility] Comment on above: Performed By: #### 1 617148592, 2717550, 70149105, 4007326, 5547608124, 8590965298 #### [facility] (DEFAULT) [address] [place] [address] 92968 Glucose [Mass/Vol] 94.0 mg/dL Normal 74.0-118.0 [facility] Comment on above: Performed By: #### 1 896300310, 3227992, 90977946, 6849627, 6029211224, 8523540763 #### [facility] (DEFAULT) [address] [place] [address] 64173 Osmolality [Osmolality] 274 mOsm/L [facility] Comment on above: Performed By: #### 1 167868674, 3225167, 56956243, 9827984, 7578472392, 8994872170 #### [facility] (DEFAULT) [address] [place] [address] 21557 Potassium [Moles/Vol] 3.4 mmol/L Low 3.6-5.1 [facility] Comment on above: Performed By: #### 1 922686920, 0371375, 01116303, 3525331, 6049947984, 3776513493 #### [facility] (DEFAULT) [address] [place] [address] 56211 Protein [Mass/Vol] 6.8 g/dL Normal 6.5-8.1 [facility] Comment on above: Performed By: #### 1 117095186, 8608182, 62771606, 5682285, 7592058904, 5767324941 #### [facility] (DEFAULT) [address] [place] [address] 43083 Sodium [Moles/Vol] 137.0 mmol/L Normal 136.0-144.0 [facility] Comment on above: Performed By: #### 1 408202486, 9753762, 46372566, 9018182, 1457330511, 4542498713 #### [facility] (DEFAULT) [address] [place] [address] 00833 Urea nitrogen [Mass/Vol] 14 mg/dL Normal 8-26 [facility] Comment on above: Performed By: #### 1 735307486, 3783618, 17805561, 7131893, 6680804024, 3926115416 #### [facility] (DEFAULT) [address] [place] [address] Urea nitrogen/Creatinine [Mass ratio] 16.0 mg/mg Normal 4.6-16.2 [facility] Comment on above: Performed By: #### 1 [id number], 1592265, 08446109, 4817059, 3896368274, 0703472564 #### [facility] (DEFAULT) [address] [place] [address] ED Clinical Summaryon 2019 ED Clinical Summary [facility] - Emergency Department [address] [place] [address] ED Clinical Summary PERSON INFORMATION Name: KELI ESTRADA Age: 19 Years Sex: FEMALE : 2000 MRN: Acct#: Visit Reason: Diarrhea; Headache; Diarrhea; Headache - Recurrent; HEADACHE, BODY ACHES Arrival: 12/21/2019 00:29:46 Discharge: 12/21/2019 02:29:00 LOS: 000 02:00 Check In: 12/21/2019 00:29:46 Checkout:12/21/2019 02:29:00 Address: [place] [address] PCP: KO FREEMAN PROVIDER INFORMATION Provider Role Assigned Unassigned Cyrus Resendez MD ED Provider 12/21/2019 00:30:56 Ayla Regalado [employer] Nurse 12/21/2019 00:47:16 VITALS INFORMATION Vital Sign [...] Home PATIENT EDUCATION INFORMATION Instructions: Migraine Headache, Mbcq-ux-Pgxp; Viral Gastroenteritis, Adult, Yopm-gj-Fktg Follow-Up: With: Address: When: KO FREEMAN [facility], [address] [place] [id number] Business (1) Within 3 to 5 days DIAGNOSIS: Gastroenteritis; Headache Patient Understands: Yes - Patient/family/caregi shanique verbalizes understanding of instructions given Comment: [facility] ED Note - Physicianon 2019 ED [...] Auto Lymph % 9 % LOW Auto [place] % 6 % Auto Eos % 3.3 % Auto Baso % 0.3 % Neut Abs# 10.5 x103/mcL HI Lymph Abs# 1.2 x103/mcL LOW [place] Abs# 0.8 x103/mcL Eos Abs# 0.4 x103/mcL Baso Abs# 0.0 x103/mcL Tube Collected Yes Tube Collected Yes . Notes: Patient symptoms improved with IV hydration, IV Benadryl, Reglan and Zofran.. Impression and Plan Diagnosis Gastroenteritis (BDY95-JY K52.9, Discharge, Medical) Headache (GFY59-CN R51, Discharge, Medical) Plan Condition: Improved, Stable. Disposition: Discharged: to home. Patient was given the following educational materials: Viral Gastroenteritis, Adult, Msja-ch-Mjre, Migraine Headache, Iqjx-zb-Vlra, Migraine Headache, Tqhq-gp-Elwz, Viral Gastroenteritis, Adult, Hqyg-pi-Rfky. Follow up with: KO FREEMAN Within 3 to 5 days. Counseled: Patient, Regarding diagnosis, Regarding diagnostic results, Regarding treatment plan, Patient indicated understanding of instructions. [Electronically Signed on: 12/21/2019 07:54 EDT] Cyrus Resendez MD [Verified on: 12/21/2019 07:54 EDT] Cyrus Resendez MD [facility] ED Note-Nursingon 12-21-2019 ED Note-Nursing patient [...] lot today and may also be dehydrated. [facility] ED Patient Education Noteon 12-21-2019 ED [...] ? Low-calorie sports drinks. ? Eat bland, yijr-ni-xztzaa foods in small amounts as you are able, such as: ? Bananas. ? Applesauce. ? Rice. ? Low-fat (lean) meats. ? Chauncey. ? Crackers. ? Avoid fluids that have a lot of sugar or caffeine in them. ? Avoid alcohol. ? Avoid spicy or fatty foods. General instructions ? Drink enough fluid to keep your pee (urine) clear or pale yellow. ? Wash your hands often. If you cannot use soap and water, use hand acoustical material worker. ? Make sure that all people in your home wash their hands well and often. ? Rest at home while you get better. ? Take fzlj-mlp-puqzbak and prescription medicines only as told by [...] 11/16/2008 Document Revised: 02/22/2019 Document Reviewed: 02/04/2016 [employer] Patient Education ? 2019 [employer] Neurology Migraine Headache Use Tylenol, ibuprofen and [...] these instructions at home: Medicines ? Take xqgg-ilx-vdvzect and prescription medicines only as told by your doctor. ? Do not drive or use heavy machinery while taking prescription pain medicine. ? To prevent or treat constipation while you are taking prescription pain medicine, your doctor may recommend that you: ? Drink enough fluid to keep your pee (urine) clear or pale yellow. ? Take qjyi-uyd-mgwnjdz or prescription medicines. ? Eat foods that [...] 03/09/2009 Document Revised: 02/22/2019 Document Reviewed: 11/16/2016 [employer] Interactive Patient Education ? 2019 [employer] Normal [facility] ED Patient Summaryon 020 ED Patient Summary [facility] - Emergency Department [address] [place], [place] [id number] PATIENT DISCHARGE INSTRUCTIONS Patient Information Name: KELI ESTRADA Age: 19 Years Date of : 2000 Reason For Visit: Diarrhea; Headache; Diarrhea; Headache - Recurrent; HEADACHE, BODY ACHES Arrival Time: 12/21/2019 00:29:46 Primary Care Physician: KO FREEMAN Attending Physician: Cyrus Resendez MD Comment: Visit Diagnosis: Diagnoses This Visit Diarrhea ([id number]) Diarrhea ([id number]) Gastroenteritis (K52.9) Headache (R51) Headache ([id number]) Headache - Recurrent ([id number]) Prescription Information: If you have been given a prescription for narcotics, seek immediate medical attention if you have any difficulty breathing or any sudden status changes such as confusion and sleepiness. If you or anyone you know is experiencing suicidal thoughts, mental health, alcohol and/or drug addiction problems; contact the [facility] 04/01 Crisis Hotline -Text 9MEWK po [phone]. If you received any narcotics, sedation, or [...] legal documents With: Address: When: KO FREEMAN [address] [place] [address], [address] [place] [id number] Business (1) Within 3 to 5 days Medication Information: The exam and treatment you received today in the [facility] Emergency Department were for an urgent problem and are not intended as complete care. It is important for you to follow up with a doctor, nurse practitioner, or physician?s anesthesiologist assistant certified for ongoing care. If your symptoms become [...] so we can reach you if necessary. [facility] Emergency Department has provided you with a complete list of medications post discharge. Please inform your snowmaker/provider of your visit and for further instruction [...] these instructions at home: Medicines ? Take dbcf-twj-mrbbhzk and prescription medicines only as told by your doctor. ? Do not drive or use heavy machinery while taking prescription pain medicine. ? To prevent or treat constipation while you are taking prescription pain medicine, your doctor may recommend that you: ? Drink enough fluid to keep your pee (urine) clear or pale yellow. ? Take svlt-wim-fmjbduj or prescription medicines. ? Eat foods that [...] 03/09/2009 Document Revised: 02/22/2019 Document Reviewed: 11/16/2016 [employer] Patient Education ? 2019 [employer]. Viral Gastroenteritis, Adult Viral gastroenteritis is also [...] ? Low-calorie sports drinks. ? Eat bland, vfec-ms-gmrokr foods in small amounts as you are able, such as: ? Bananas. ? Applesauce. ? Rice. ? Low-fat (lean) meats. ? Chauncey. ? Crackers. ? Avoid fluids that have a lot of sugar or caffeine in them. ? Avoid alcohol. ? Avoid spicy or fatty foods. General instructions ? Drink enough fluid to keep your pee (urine) clear or pale yellow. ? Wash your hands often. If you cannot use soap and water, use hand acoustical material worker. ? Make sure that all people in your home wash their hands well and often. ? Rest at home while you get better. ? Take svsp-lsg-ntlrwqw and prescription medicines only as told by [...] 11/16/2008 Document Revised: 02/22/2019 Document Reviewed: 02/04/2016 [employer] Patient Education ? 2019 [employer] Viruses or Bacteria What?s got you [...] Disease Control and Prevention February 2014 Normal [facility] Extra Redon 12-21-2019 Tube Collected Yes [facility] Comment on above: Performed By: #### 1 [id number], 7238032919, 1894113, 75818738, [id number] ####[facility] (DEFAULT)[address] [place] [address] Pharmacy Noteon 12-21-2019 Pharmacy Note I have [...] [Verified on: 12/21/2019 15:00 EDT] Carolyn Medina [facility] UA w Culture if Ind Standard on 12-21-2019 Breakpoint UA [facility] Comment on above: Performed By: #### 1 [id number], 5611971, 74742588, 7356117, 3777362999, 5709791910 #### [facility] (DEFAULT) [address] [place] [address] Color (U) Yellow [facility] Comment on above: Performed By: #### 1 [id number], 9352576, 44777414, 6329694, 1048777539, 2163157428 #### [facility] (DEFAULT) [address] [place] [address] Culture? Not Indicated [facility] Comment on above: Performed By: #### 1 [id number], 5932706, 04764516, 0897277, 3898610683, [id number] #### [facility] (DEFAULT) [address] [place] [address] Glucose (U) [Mass/Vol] Negative [facility] Comment on above: Performed By: #### 1 668463691, 1876691, 56549742, 8164598, 2693614237, 1911758218 #### [facility] (DEFAULT) [address] [place] [address] Ketones Ql (U) Negative [facility] Comment on above: Performed By: #### 1 [id number], 6113765, 13661725, 6221070, 7028413268, [id number] #### [facility] (DEFAULT) [address] [place] [address] Micro? Not Indicated [facility] Comment on above: Performed By: #### 1 077949171, 7958613, 06984545, 9290926, 2395751375, 0249076167 #### [facility] (DEFAULT) [address] [place] [address] 72029 UA Bilirubin Negative Normal [facility] Comment on above: Performed By: #### 1 [id number], 6500858, 23134786, 4391451, 9544170156, [id number] #### [facility] (DEFAULT) [address] [place] [address] 55965 UA Blood Negative Normal NEGATIVE [facility] Comment on above: Performed By: #### 1 013873891, 2675933, 18378336, 8922485, 1226903743, 1733801491 #### [facility] (DEFAULT) [address] [place] [address] UA Clarity CLEAR Normal CLEAR [facility] Comment on above: Performed By: #### 1 [id number], 7249930, 40014682, 1806852, 7884528095, [id number] #### [facility] (DEFAULT) [address] [place] [address] UA Leuk Est Negative Normal NEGATIVE [facility] Comment on above: Performed By: #### 1 447052657, 3771076, 40078185, 0619755, 0315660480, [id number] #### [facility] (DEFAULT) [address] [place] [address] 57805 UA Nitrite Negative Normal NEGATIVE [facility] Comment on above: Performed By: #### 1 605496418, 0490901, 47246176, 8551808, 6803106253, 9739586942 #### [facility] (DEFAULT) [address] [place] [address] 61378 UA pH 6.5 Normal 5-8 [facility] Comment on above: Performed By: #### 1 [id number], 7991380, 20467984, 1711548, 6384863701, 1658043135 #### [facility] (DEFAULT) [address] [place] [address] UA Protein Negative Normal NEGATIVE [facility] Comment on above: Performed By: #### 1 [id number], 4341476, 00080027, 8736594, 7064622482, [id number] #### [facility] (DEFAULT) [address] [place] [address] UA Spec Grav 1.025 Normal 1.001-1.035 [facility] Comment on above: Performed By: #### 1 654331428, 9373212, 23567679, 2445906, 6406067405, [id number] #### [facility] (DEFAULT) [address] [place] [address] UA Urobilinogen 1.0 mg/dL Normal 0.2-1.0 [facility] Comment on above: Performed By: #### 1 [id number], 1303099, 47718441, 0531659, [id number], [id number] #### [facility] (DEFAULT) [address] [place] [address] Urine Source Clean Catch [facility] Comment on above: Performed By: #### 1 [id number], 5662155, 44706895, 9729377, [id number], [id number] #### [facility] (DEFAULT) [address] [place] [address] Coding Summaryon 08-21-2019 Coding Summary CODING DATE: 08/21/2019 [facility] STATUS: Home PAYOR: Self Pay [...] Coded By: Queta Gonzalez Date Saved: 08/21/2019 02:57 pm [facility] Coding Summary CODING DATE: 08/21/2019 [facility] STATUS: Home PAYOR: Self Pay [...] Gonzalez' Date Saved: 08/21/2019 02:55 pm Normal [facility] .Auto Diff 1on 08-16-2019 Auto [place] % 6 % Normal -12 [facility] Comment on above: Performed By: #### 1 [id number], 0220016, 33757930, 5518366, [id number], [id number] #### [facility] (DEFAULT) [address] [place] [address] 88516 Baso Abs# 0.0 x10 Normal 0.0-0.2 [facility] Comment on above: Performed By: #### 1 [id number], 0547913, 49815912, 8571888, 4802307042, [id number] #### [facility] (DEFAULT) [address] [place] [address] 32653 Basophils/100 WBC (Bld) 0.3 % Normal 0.2-2.0 [facility] Comment on above: Performed By: #### 1 [id number], 5659278, 16833104, 1299601, 0157549777, [id number] #### [facility] (DEFAULT) [address] [place] [address] 57615 Eos Abs# 0.7 x10 High 0.0-0.4 [facility] Comment on above: Performed By: #### 1 [id number], 1992385, 04572683, 4679906, [id number], [id number] #### [facility] (DEFAULT) [address] [place] [address] 35760 Eosinophils/100 WBC (Bld) 5.8 % High 0.9-4.0 [facility] Comment on above: Performed By: #### 1 [id number], 9778311, 54111897, 0960180, 1875609554, [id number] #### [facility] (DEFAULT) [address] [place] [address] Lymphocytes (Bld) [#/Vol] 2.6 x10 Normal 1.3-2.9 [facility] Comment on above: Performed By: #### 1 [id number], 6301636, 42790667, 4808181, [id number], [id number] #### [facility] (DEFAULT) [address] [place] [address] Lymphocytes/100 WBC (Bld) 22 % Normal 14-48 [facility] Comment on above: Performed By: #### 1 [id number], 6094557, 11447608, 3089705, 5553340280, [id number] #### [facility] (DEFAULT) [address] [place] [address] [place] Abs# 0.6 x10 Normal 0.0-0.8 [facility] Comment on above: Performed By: #### 1 142672667, 2406182, 39210787, 5149939, 0920125019, [id number] #### [facility] (DEFAULT) [address] [place] [address] Neut Abs# 7.6 x10 Normal 1.5-9.2 [facility] Comment on above: Performed By: #### 1 [id number], 6898863, 40248345, 1502627, 0597137064, [id number] #### [facility] (DEFAULT) [address] [place] [address] Neutrophils/100 WBC (Bld) 66 % Normal 44-88 [facility] Comment on above: Performed By: #### 1 [id number], 5450309, 47092228, 8406018, 5806126858, 6808244675 #### [facility] (DEFAULT) [address] [place] [address] CBC w/ Auto Diffon 0 Erythrocyte distribution width (RBC) [Ratio] 12.4 % Normal 11.5-15.0 [facility] Comment on above: Performed By: #### 1 [id number], 4519416, 57188530, 3434100, 2839180127, [id number] #### [facility] (DEFAULT) [address] [place] [address] Hematocrit (Bld) [Volume fraction] 43.9 % High 33.7-40.4 [facility] Comment on above: Performed By: #### 1 [id number], 8562289, 43758243, 6691718, 5876115013, 4050109318 #### [facility] (DEFAULT) [address] [place] [address] Hemoglobin (Bld) [Mass/Vol] 15.1 g/dL Normal 11.3-15.9 [facility] Comment on above: Performed By: #### 1 660831748, 6143198, 04176994, 2238582, 7792510397, [id number] #### [facility] (DEFAULT) [address] [place] [address] Man Diff? Auto Normal [facility] Comment on above: Performed By: #### 1 360558180, 3961837, 24167100, 9937720, 4208799314, 3727706162 #### [facility] (DEFAULT) [address] [place] [address] MCH (RBC) [Entitic mass] 31 pg Normal 24-34 [facility] Comment on above: Performed By: #### 1 856071510, 2321027, 52398151, 9908163, 9986103135, 9875846200 #### [facility] (DEFAULT) [address] [place] [address] 88025 MCHC (RBC) [Mass/Vol] 34 g/dL Normal 26-37 [facility] Comment on above: Performed By: #### 1 442903261, 2430637, 60760651, 8726818, 3019301244, 0803919680 #### [facility] (DEFAULT) [address] [place] [address] MCV (RBC) [Entitic vol] 90 fL Normal 81-100 [facility] Comment on above: Performed By: #### 1 614524919, 9787727, 13221464, 9218764, 5558121763, 9891567537 #### [facility] (DEFAULT) [address] [place] [address] Platelet mean volume (Bld) [Entitic vol] 10.5 fL High 6.3-10.2 [facility] Comment on above: Performed By: #### 1 [id number], 3223876, 25340318, 8428098, 2685470705, 0363605496 #### [facility] (DEFAULT) [address] [place] [address] Platelets (Bld) [#/Vol] 207 x10 Normal 138-427 [facility] Comment on above: Performed By: #### 1 665652926, 6569150, 35606250, 5215062, 9754523098, 4575571682 #### [facility] (DEFAULT) [address] [place] [address] RBC (Bld) [#/Vol] 4.87 x10 Normal 3.70-5.30 [facility] Comment on above: Performed By: #### 1 [id number], 2196609, 31627837, 6525755, 6051301291, 6703705071 #### [facility] (DEFAULT) [address] [place] [address] WBC (Bld) [#/Vol] 11.6 x10 [facility] Comment on above: Performed By: #### 1 [id number], 7103992, 23977337, 0868045, 8519003684, 1954483057 #### [facility] (DEFAULT) [address] [place] [address] Standardon 08-16-2019 eGFR Non AA >60 [facility] Comment on above: Performed By: #### 1 [id number], 1392396, 81754957, 1025596, 7180205541, 4765156752 #### [facility] (DEFAULT) [address] [place] [address] eGFR AA >60 [facility] Comment on above: Result Comment: Management Coordinator angie Kidney disease could be indicated at eGFRs of less than 60 ml/min/1.73m2. Kidney Failure is indicated at less than 15 ml/min/1.73m2 Performed By: #### 1 [id number], 5247785, 11730329, 1373922, 5777384535, 5213060968 #### [facility] (DEFAULT) [address] [place] [address] Albumin [Mass/Vol] 4.5 g/dL Normal 3.5-5.0 [facility] Comment on above: Performed By: #### 1 648345028, 7733106, 91429318, 9475846, 0776448529, 8035080341 #### [facility] (DEFAULT) [address] [place] [address] Albumin/Globulin [Mass ratio] 1.5 {ratio} Normal 1.4-2.6 [facility] Comment on above: Performed By: #### 1 649336077, 2837691, 27631380, 5333201, 6867603186, 5600858878 #### [facility] (DEFAULT) [address] [place] [address] Alk Phos 55 IU/L Normal 32-91 [facility] Comment on above: Performed By: #### 1 [id number], 7577962, 32802537, 7654774, 3267834412, 0104076400 #### [facility] (DEFAULT) [address] [place] [address] ALT/SGPT 35.0 IU/L Normal 14.0-54.0 [facility] Comment on above: Performed By: #### 1 386099641, 1612525, 60693008, 8670161, 3600340986, 6577802784 #### [facility] (DEFAULT) [address] [place] [address] Anion gap [Moles/Vol] 13.0 mmol/L Normal 5.0-19.0 [facility] Comment on above: Performed By: #### 1 880270069, 7764928, 73207701, 0044121, 9083917216, 6878926825 #### [facility] (DEFAULT) [address] [place] [address] AST/SGOT 25 IU/L Normal 15-41 [facility] Comment on above: Performed By: #### 1 474920563, 1811935, 15823436, 8412389, 5009733625, 6524006289 #### [facility] (DEFAULT) [address] [place] [address] 28383 Bili Total 0.8 mg/dL Normal 0.3-1.2 [facility] Comment on above: Performed By: #### 1 213999127, 3177158, 85112803, 9617424, 2255381035, 1534478002 #### [facility] (DEFAULT) [address] [place] [address] 46844 Calcium [Mass/Vol] 9.6 mg/dL Normal 8.9-10.3 [facility] Comment on above: Performed By: #### 1 181975829, 5447007, 42060255, 8926609, 0542808260, 0664436602 #### [facility] (DEFAULT) [address] [place] [address] 65183 Chloride [Moles/Vol] 107 mmol/L Normal 101-111 [facility] Comment on above: Performed By: #### 1 932697564, 5172369, 33150449, 1568856, 5445873029, 2034508145 #### [facility] (DEFAULT) [address] [place] [address] 39026 CO2 [Moles/Vol] 25 mmol/L Normal 21-32 [facility] Comment on above: Performed By: #### 1 868750393, 5904044, 42445898, 1076690, 7708400345, 0813877063 #### [facility] (DEFAULT) [address] [place] [address] 94424 Creatinine [Mass/Vol] 0.81 mg/dL Normal 0.60-1.30 [facility] Comment on above: Performed By: #### 1 [id number], 4300032, 21674696, 4046453, 0538036731, 1703134971 #### [facility] (DEFAULT) [address] [place] [address] 86379 Globulin (S) [Mass/Vol] 3.0 g/dL Normal 1.5-4.3 [facility] Comment on above: Performed By: #### 1 [id number], 8358872, 48069820, 2822717, 2088881108, 5400714901 #### [facility] (DEFAULT) [address] [place] [address] 92604 Glucose [Mass/Vol] 83.0 mg/dL Normal 74.0-118.0 [facility] Comment on above: Performed By: #### 1 862158599, 9422475, 78991168, 5749816, 1153577094, 9124900300 #### [facility] (DEFAULT) [address] [place] [address] 73432 Osmolality [Osmolality] 282 mOsm/L [facility] Comment on above: Performed By: #### 1 496546240, 6863861, 21814580, 1904208, 2191439874, 5421571123 #### [facility] (DEFAULT) [address] [place] [address] 70668 Potassium [Moles/Vol] 3.6 mmol/L Normal 3.6-5.1 [facility] Comment on above: Performed By: #### 1 185858300, 4432160, 01374437, 8416850, 1204375278, 0495497694 #### [facility] (DEFAULT) [address] [place] [address] 63478 Protein [Mass/Vol] 7.5 g/dL Normal 6.5-8.1 [facility] Comment on above: Performed By: #### 1 710982522, 1241674, 60947333, 0681921, 4908752106, 1549218612 #### [facility] (DEFAULT) [address] [place] [address] 90776 Sodium [Moles/Vol] 141.0 mmol/L Normal 136.0-144.0 [facility] Comment on above: Performed By: #### 1 017097169, 6504218, 50802400, 6606823, 4061722035, 4921362919 #### [facility] (DEFAULT) [address] [place] [address] 55026 Urea nitrogen [Mass/Vol] 18 mg/dL Normal 8-26 [facility] Comment on above: Performed By: #### 1 427231171, 3251703, 41099124, 4919944, 0311005429, 0669831603 #### [facility] (DEFAULT) [address] [place] [address] 77959 Urea nitrogen/Creatinine [Mass ratio] 22.0 mg/mg High 4.6-16.2 [facility] Comment on above: Performed By: #### 1 [id number], 3986628, 31892932, 1100002, 6012036675, 2843531740 #### [facility] (DEFAULT) [address] [place] [address] 41046 ED Clinical Summaryon 2019 ED Clinical Summary [facility] - Emergency Department [address] [place], [place] [id number] ED Clinical Summary PERSON INFORMATION Name: KELI ESTRADA Age: 19 Years Sex: FEMALE : 2000 MRN: Acct#: Visit Reason: Medical problem - minor; Vomiting; VOMITING, WEAKNESS Arrival: 08/16/2019 18:56:00 Discharge: 08/16/2019 21:16:00 LOS: 000 02:20 Check In: 08/16/2019 18:56:00 Checkout:08/16/2019 21:16:00 Address: [place] [address] PCP: KO FREEMAN PROVIDER INFORMATION Provider Role [...] % Auto Lymph % 22 % Auto [place] % 6 % Auto Eos % 5.8 % HI Auto Baso % 0.3 % Neut Abs# 7.6 x103/mcL Lymph Abs# 2.6 x103/mcL [place] Abs# 0.6 x103/mcL Eos Abs# 0.7 x103/mcL HI Baso Abs# 0.0 x103/mcL Tube Collected Yes Tube Collected Yes . Notes: Patient symptoms improved with GI cocktail. Patient counseled that her lab work is otherwise unremarkable. She was advised to follow-up with her primary care physician in 3 to 5 days. She is in agreement with this plan.. Impression and Plan Diagnosis Heartburn symptom (FDT68-VP R12, Discharge, Medical) Vomiting (WEZ62-ZG R11.10, Discharge, Medical) Plan Condition: Improved, Stable. [...] she is employed, she works at her [employer], she smokes occasionally, she rarely drinks, she [...] Heartburn Follow-Up: With: Address: When: KO FREEMAN [address] [place], [place] [address] Business (1) Within 3 to 5 days DIAGNOSIS: Heartburn symptom; Vomiting Patient Understands: Yes - Patient/family/caregi shanique verbalizes understanding of instructions given Comment: [facility] ED Note - Physicianon 2019 ED [...] % Auto Lymph % 22 % Auto [place] % 6 % Auto Eos % 5.8 % HI Auto Baso % 0.3 % Neut Abs# 7.6 x103/mcL Lymph Abs# 2.6 x103/mcL [place] Abs# 0.6 x103/mcL Eos Abs# 0.7 x103/mcL HI Baso Abs# 0.0 x103/mcL Tube Collected Yes Tube Collected Yes . Notes: Patient symptoms improved with GI cocktail. Patient counseled that her lab work is otherwise unremarkable. She was advised to follow-up with her primary care physician in 3 to 5 days. She is in agreement with this plan.. Impression and Plan Diagnosis Heartburn symptom ([id number]-KQ R12, Discharge, Medical) Vomiting (CKN96-YI R11.10, Discharge, Medical) Plan Condition: Improved, Stable. [...] on: 08/16/2019 21:12 EST] Cyrus Resendez MD [facility] ED Note - Physician Patient: KELI [...] she is employed, she works at her [employer], she smokes occasionally, she rarely drinks, she [...] on: 08/16/2019 20:02 EST] Fernando Quiroz DO [facility] ED Note-Nursingon 08-16-2019 ED Note-Nursing Patient [...] No fever. LBM today about 2 hours COMMUNICATION SPEC. Patient is A/O X4 and placed in room 9. [facility] ED Patient Education Noteon 08-16-2019 ED [...] pharmacies and retail stores. ? Eat bland, vqps-vn-noooqq foods in small amounts as you are [...] and water are not available, use hand acoustical material worker. Make sure that everyone in your household washes their hands frequently. ? Take ebwk-hsu-qbayxjq and prescription medicines only as told by [...] and water are not available, use hand acoustical material worker. Make sure that everyone in your household [...] 06/26/2016 Document Revised: 11/08/2018 Document Reviewed: 11/08/2018 [employer] Patient Education ? 2019 [employer] Heartburn Heartburn is a type of [...] vinegar, hot sauces, and barbecue sauce. ? Green Tree fruit juices and citrus fruits, such as oranges, jorge, and limes. ? Tomato-based foods, such as red sauce, chili, salsa, and pizza with red sauce. ? Fried and fatty foods, such as donuts, kuwaiti fries, potato chips, and high-fat dressings. ? [...] any changes in your symptoms. ? Take cxpj-wdj-pinlaju and prescription medicines only as told by [...] by your health care provider. ? Take gcmr-xej-wwluddl and prescription medicines only as told by [...] 10/17/2009 Document Revised: 10/31/2018 Document Reviewed: 10/31/2018 [employer] Interactive Patient Education ? 2019 [employer] Normal [facility] ED Patient Summaryon 020 ED Patient Summary [facility] - Emergency Department [address] [place] [address] PATIENT DISCHARGE INSTRUCTIONS Patient Information Name: KELI ESTRADA Age: 19 Years Date of : 2000 Reason For Visit: Medical problem - minor; Vomiting; VOMITING, WEAKNESS Arrival Time: 08/16/2019 18:56:00 Primary Care Physician: KO FREEMAN Attending Physician: Fernando Quiroz DO Comment: Visit Diagnosis: Diagnoses This Visit Heartburn symptom (R12) Medical problem - minor ([id number]) Vomiting (R11.10) Vomiting ([id number]) Prescription Information: If you have been given a prescription for narcotics, seek immediate medical attention if you have any difficulty breathing or any sudden status changes such as confusion and sleepiness. If you or anyone you know is experiencing suicidal thoughts, mental health, alcohol and/or drug addiction problems; contact the [facility] 04/01 Crisis Hotline -Biiy 6DODS mo [id number]. If you received any narcotics, sedation, or [...] legal documents With: Address: When: KO FREEMAN [address] [place] [address] Business (1) Within 3 to 5 days Medication Information: The exam and treatment you received today in the [facility] Emergency Department were for an urgent problem and are not intended as complete care. It is important for you to follow up with a doctor, nurse practitioner, or physician?s anesthesiologist assistant certified for ongoing care. If your symptoms become [...] so we can reach you if necessary. [facility] Emergency Department has provided you with a complete list of medications post discharge. Please inform your snowmaker/provider of your visit and for further instruction [...] pharmacies and retail stores. ? Eat bland, doxq-iy-odvzib foods in small amounts as you are [...] and water are not available, use hand acoustical material worker. Make sure that everyone in your household washes their hands frequently. ? Take nkuu-xis-tbcimmi and prescription medicines only as told by [...] and water are not available, use hand acoustical material worker. Make sure that everyone in your household [...] 06/26/2016 Document Revised: 11/08/2018 Document Reviewed: 11/08/2018 [employer] Patient Education ? 2019 [employer] Heartburn Heartburn is a type of [...] vinegar, hot sauces, and barbecue sauce. ? Green Tree fruit juices and citrus fruits, such as oranges, jorge, and limes. ? Tomato-based foods, such as red sauce, chili, salsa, and pizza with red sauce. ? Fried and fatty foods, such as donuts, kuwaiti fries, potato chips, and high-fat dressings. ? [...] any changes in your symptoms. ? Take yhjr-efy-sffonrs and prescription medicines only as told by [...] by your health care provider. ? Take teop-act-ukskyvb and prescription medicines only as told by [...] 10/17/2009 Document Revised: 10/31/2018 Document Reviewed: 10/31/2018 [employer] Patient Education ? 2019 [employer] Viruses or Bacteria What?s got you [...] Disease Control and Prevention February 2014 Normal [facility] Extra Blueon 08-16-2019 Tube Collected Yes [facility] Comment on above: Performed By: #### 1 [id number], 0584928, 02093523, 4821894, [id number], [id number] #### [facility] (DEFAULT) [address] [place] [address] 53611 Influenza A&B Rapidon 2019 Influenza A Negative Normal Negative [facility] Comment on above: Performed By: #### 1 [id number] #### [facility] (DEFAULT) [address] [place] [address] 72875 Influenza B Negative Normal Negative [facility] Comment on above: Performed By: #### 1 [id number] #### [facility] (DEFAULT) [address] [place] [address] 11256 Internal QC OK? Pass Normal [facility] Comment on above: Performed By: #### 1 [id number] #### [facility] (DEFAULT) [address] [place] [address] 29906 Lipaseon 08-16-2019 Lipase Level 30.0 IU/L Normal 22.0-51.0 [facility] Comment on above: Performed By: #### 1 [id number], 2984143, 79615745, 6848271, 9891275850, [id number] #### [facility] (DEFAULT) [address] [place] [address] 46614 HISTORY PHYSICALon HISTORY PHYSICAL HNO ID: [id number] Author: Jacoby Reyes Service: Pain Management Author [...] DATE: May 03, 2019 TIME: 9:24 AM PAGER:[phone] [facility] HISTORY PHYSICAL HNO ID: [id number] Author: Gloria Mckeon (Pa) Service: ? Author Type: Physician General Road Supervisor Type: HANDP Filed: 05/03/2019 9:16 AM Note [...] May 03, 2019 TIME: 9:08 AM PAGER: [facility] OPERATIVE NOon 05-03-2019 OPERATIVE NO HNO ID: [id number] Author: Jacoby Reyes Service: Pain Management Author Type: Physician Type: Operative Report Filed: 05/03/2019 9:43 AM Note Text: Patient Name Medical Record # Keli Estrada [id number] Date of : 2000 Admit Date: May 03, 2019 Sex / Age: female / 18 year old Discharge Date: May 03, 2019 Attending Physician: Jacoby Reyes MD OPERATIVE REPORT DATE OF PROCEDURE: May 03, 2019 LOG ID: [id number] Surgery/Procedure Date: 05/03/2019 Incision/Procedure Start Time: 9:35 AM Incision Close/Procedure End Time: 9:41 AM Surgeon(s)/Procedural ist(s) and General Road Supervisor(s): Surgeon(s) and Role: * Jacoby Reyes - [...] Reyes MD Pain Management May 03, 2019 [facility] HOSPon 03-21-2019 HOSP Patient:Shanique Estrada MRN: [...] entered within the past 30 days Normal [facility] Vital Signs Date Time Vital Sign Value Performing Clinician Ken alvares 04-04-2024 13:14-0400 Body height 162.6 cm Progreso Financiero DO Work Phone: [facility] 04-04-2024 13:14-0400 Body mass index (BMI) [Ratio] 29.87 kg/m2 Sixto Biom'Up DO Work Phone: [facility] 04-04-2024 13:14-0400 Body weight 78.93 kg Progreso Financiero DO Work Phone: [facility] 04-04-2024 13:14-0400 Diastolic blood pressure 66 mm[Hg] Sixto Biom'Up DO Work Phone: [facility] 04-04-2024 13:14-0400 Heart rate 60 /min Progreso Financiero DO Work Phone: [facility] 04-04-2024 13:14-0400 SaO2% (BldA) [Mass fraction] 100 % Sixto Albrecht DO Work Phone: [facility] 04-04-2024 13:14-0400 Systolic blood pressure 104 mm[Hg] Sixto Albrecht DO Work Phone: [facility] Healthcare Encounters Encounter Date Encounter Type Care Provider Facility Start: 04-04-2024 End: 04-04-2024 Bamboo flowsheet Sixto Albrecht DO Work Phone: [facility] Start: 04-04-2024 End: 04-04-2024 Bamboo flowsheet Sixto Albrecht [facility] Start: 04-04-2024 End: 04-04-2024 ambulatory SIXTO ALBRECHT Not Available Start: 04-04-2024 End: 04-04-2024 Office outpatient visit 15 minutes Sixto Albrecht DO [facility]: [facility] Comment on above: Temporal lobe epilep sy (CMS/HCC) (Primary Dx); ANDREW (obstructive sleep apnea) Start: 11-11-2023 End: 11-11-2023 ambulatory DEIDRA REES Not Available Start: 08-27-2023 End: 09-30-2023 ambulatory Alicia Start: 09-07-2022 End: 09-07-2022 ambulatory Deidra Rees Facility:[facility] Start: 09-07-2022 End: 09-07-2022 ambulatory MD Ko Freeman Work Phone: [facility] Work Phone: Start: 09-07-2022 End: 09-07-2022 Departed Referred MD Ko Freeman Work Phone: [facility] Work Phone: Start: 09-03-2022 End: 09-03-[address] KO FREEMAN . Facility:[facility] Start: 06-10-2022 End: 06-10-2022 ambulatory NGOC GODFREY Facility:[facility] Start: 03-05-[address] KO FREEMAN . Facili ty:[facility] Start: 02-25-2022 End: 02-25-[address] KO FREEMAN . Facility: Plan of Treatment Date Care Activity Detail Author Start: 04-03-2025 End: 04-03-2025 Patient encounter procedure 04/03/2025 9:40 AM EDT Office Visit [facility] [address] [facility] [address] [place] [id number] Torie Walters NP [address] [place], [place] [facility] Start: 11-14-2024 End: 11-14-2024 Patient encounter procedure 11/14/2024 2:45 PM EDT Office Visit [facility] [address] [place] [id number] Deidra Rees MD [address] [place] [address] [facility] Start: 02-13-2024 Influenza vaccination Influenza Vacc ine (#1) [facility] Immunizations Immunization Date Immunization Notes Care Provider Carina patel 07-10-2015 influenza virus vacc ine, unspecified formulation Sixto Albrecht DO Work Phone: [facility] Payers Date Payer Category Payer Self-pay [id number] 2022 Medicaid [facility] [id number] 2022 Medicaid [id number] 1998 Unknown [id number] 1998 Unknown [id number] 593 1998 Unknown [id number] 593 1998 Unknown [id number] 593 1998 Unknown [id number] 1259 1998 Unknown [id number] 1259 1959 Unknown [id number] Private Health Insurance [facility] [id number] Unknown Cody [id number] Unknown [id number] 531 Social History Date Type Detail Facility Tobacco smoking stat [facility] Unknown if ever smoked [facility] Work Phone: Start: 2000 Sex Assigned At Female [facility] Start: 03-24-2024 Tobacco smoking status PRIS Smokes tobacco daily [facility] History of tobacco use Cigarette Smoker [facility] Start: 03-24-2024 Tobacco use and exposure Smokeless tobacco non-user [facility] Start: 03-24-2024 End: 04-04-2024 Alcoholic beverage intake Current drinker of alcohol (finding) [facility] Start: 03-24-2024 End: 04-04-2024 History of Social function [facility] Start: 03-24-2024 End: 04-04-2024 Alcohol Use Disorder Identification Test - Consumption [AUDIT-C] [facility] How often to you hav e a drink containing alcohol? Monthly or less [facility] How many standard dr inks containing alcohol do you have on a typical day? 1 or 2 [facility] How often do you hav e 6 or more drinks on 1 occasion? Never [facility] Start: 03-24-2024 Alcohol Comment caffeine: 1-2 cups per day [facility] Start: 2000 Sex assigned at Not on file [facility] Start: 08-26-2022 Gender identity Identifies as female gender (finding) [facility] Start: 08-26-2022 Sexual orientation Bisexual (finding) [facility] History of Present illness Narrative 04-04-2024 Sixto Albrecht, DO - 04/04/2024 12:30 PM EDT Note Date & Type Note Facility 04-04-2024 History of Presen t illness Narrative Images from the original note were not included. Chief Complaint Patient presents with Seizures Subjective Keli Estrada, 23 y.o., female her for her yearly follow up. AUSTIN Dickey was last seen in March 2023. She denies any seizures. She is not on any medication for seizure at this time. She states her last seizure was when she was 15 years old. Patient did not have the sleep study done. Her last 3 visit with her family physician she had low BP. She was told that if she has symptoms of hypotension to call his office. She thinks she had a moderate sleep apnea but she had her tonsils removed and she lost some weight. She does feel tired between 1-3 pm. They thought it could be the dose of her ADHD meds. They are changing the scheduling of that around. She has only done that for about 1 week She feels like it is a lot better since she lost weight. She was around 300 pounds and is now down to about 176 lbs. She quit smoking cigarettes also. She had a hysterectomy and made a lot of changes. Her asthma is better. 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 Seizure (CMS/HCC) Seizure disorder (CMS/HCC) Sleep disorder, nonorganic Sleep disturbance Past Surgical History: Procedure Laterality Date HYSTERECTOMY 09/03-[facility], BS PARTIAL HYSTERECTOMY 09/07/2022 TONSILLECTOMY WISDOM TOOTH EXTRACTION Family History Problem Relation Name Age of Onset Lung cancer Mother's Brother Social History Tobacco Use Smoking status: Every Day Current packs/day: 0.25 Types: Cigarettes Smokeless tobacco: Never Substance Use Topics Alcohol use: Yes Comment: caffeine: 1-2 cups per day Allergies: Biaxin [clarithromycin], Tobramycin, Amoxicillin, Sulfamethoxazole, Sulfamethoxazole-trimethoprim, and Trimethoprim General: No fever or chills HEENT: No nasal congestion or runny nose Pulmonary: No shortness of breath or cough Cardiovascular: No chest pain or palpitations GI: No nausea or vomiting : No dysuria or hematuria Musculoskeletal: No new aches or pains or muscle weakness Infectious: no recurrent fevers or infections Dermatologic: No rashes or skin lesions Neurologic: No new headaches or dizziness Vitals: 04/04/24 1314 BP: 104/66 Pulse: 60 SpO2: 100% Body mass index is 29.87 kg/m . weight: 174 lb Neurologic exam: General: Normal body habitus, cooperative, pleasant Mental status: Awake, alert to person, place and time. Recent and remote memory are intact. Attention and concentration are normal. Fund of knowledge is appropriate for level of education. HEENT: NC/AT Cranial nerves: CN II: Visual oleary full to confrontation. No loss of vision CN III, IV, : pupils equal round and reactive to light. Extraocular movements intact. No ptosis present. CN V: Facial sensation is normal. CN VII: Full and symmetric facial movement. CN VIII: Hearing is normal CN IX and X: Palate elevates symmetrically. CN XI: Shoulder shrug is normal bilaterally. CN XII: Tongue is midline without atrophy or fasciculation. Speech: Clear and fluent no aphasia or dysarthria Pronator drift: Negative bilateral upper extremity Coordination: Intact, no signs of dysmetria Good finger to nose and rapid alternating movements Sensory: Sensation is intact to light, temperature and vibratory touch throughout four extremities. Motor: LUE 5/5 RUE 5/5 LLE 5/5 RLE 5/5 Tone: Physiologic, no tremor, bradykinesia or rigidity DTR: Bilateral Biceps 2/4 Bilateral BR 2/4 Bilateral Patellar 2/4 No spasticity Gait: Normal to casual gait Romberg's Negative Review and summary of old records: Her previous [facility] notes were reviewed Patient's PSG did show a very mild obstructive sleep apnea with an AHI of 6 this has been done back in 2013 CPAP titration on 03/28/14 she was titrated onto CPAP at 7 cm of water. Assessment/Plan Diagnoses and all orders for this visit: Temporal lobe epilepsy (CMS/HCC) ANDREW (obstructive sleep apnea) 23-year-old female who was last seen on 06/17/2020 with a history of temporal lobe epilepsy who has been without medication for quite some time and been seizure-free. She has been doing very well with that. She is here for a follow up for further assessment. Overall no new seizures. Patient does have a history of very mild obstructive sleep apnea with an AHI of 6. She was titrated on CPAP at 7. With that low of a sleep apnea she likely does not need CPAP machine. She did have her tonsils removed he is not having any hypersomnia issues other than changing around her ADHD medication. We will monitor this over time and can consider a repeat study pending her course. She was also 300 lb previously is down into the 170s. She has lost a significant amount of weight. Plan At this time she will stay off of the seizure medicines monitor for any hypersomnia and snoring issues That could be consistent with seizure Call if she has any other new issues We typically do a yearly follow up with her. The diagnosis was all discussed with the patient. All questions were answered and they agreed with the treatment plan. Patient will call if there are any new issues or questions. Pt has been fully educated on their diagnosis, treatment options, follow up plan, and return instructions Return to clinic: 1 year documented in this encounter [facility] Progress note 02-04-2021 Note Date & Type Note Facility 02-04-2021 Note HNO ID: [id number] Author: Alfie Card APRN.[employer] Service: ? Author Type: Nurse Practitioner Type: [...] for abnormal hair growth. 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 Not on it now. 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 Never seen endocrinology Pudendal injection helped with tailbone pain. Has not been back to see Dr Reyes. Had a lot of relief for quite some time. Pelvic floor physical therapy for 1-2 months. No relief. Made it worse. Made better with Ibuprofen. Hoople - sometimes pain afterwards. Makes it feel [...] suppository Follow up as needed Alfie Card APRN.[employer] INSTRUCTOR Medical Decision Making: Problems: Low: Stable chronic illness Data: Unique source(s) for external note(s) reviewed: 1 Risk: Low: Low risk from testing/treatment Moderate: Drug management Medical Decision Making Level: 3 - Low [facility] Evaluation note Note Date & Type Note Facility Evaluation note No assessment information availa [facility] Work Phone: Evaluation note Note Date & Type Note Facility Evaluation note Diagnosis Temporal lobe epilepsy (CMS/HCC)- Primary Localization-related (focal) (partial) epilepsy and epileptic syndromes with complex partial seizures, without mention of intractable epilepsy ANDREW (obstructive sleep apnea) Obstructive sleep apnea (adult) (pediatric) documented in this encounter [facility] Summary Purpose Family History No Family History Records FoundNo Family History Records FoundNo Family History Records FoundNo Family History Records FoundNo Family History Records FoundNo Family History Records FoundNo Family History Records Found Advance Directives Advance Directive Response Recorded Date/ Time Advance Directives No October 07, 2 018 10:19am Additional Source Comments INFORMATION SOURCE (unrecogn ized section and content) DATE CREATED AUTHOR 05/03/2019 [facility] DATE CREATED AUTHOR AUTHOR'S ORGANIZ ATION 01/05/2020 [facility] DATE CREATED AUTHOR AUTHOR'S ORGANIZ ATION 07/11/2021 [facility] DATE CREATED AUTHOR AUTHOR'S ORGANIZ ATION 09/06/2022 [facility] DATE CREATED AUTHOR AUTHOR'S ORGANIZ ATION 09/18/2022 [facility] DATE CREATED AUTHOR AUTHOR'S ORGANIZ ATION 01/05/2024 [place] DATE CREATED AUTHOR AUTHOR'S ORGANIZ ATION 04/06/2024 [facility] Care Teams (unrecognized sec tion and content) Team Status: Active Member Role Status Dates Ko Freeman MD Primary Care Provider Active Team Status: Inactive Member Role Status Dates Ko Freeman MD Primary Care Provider Active Deidra Rees MD Attending Provider Active 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 [facility]. provides no warranty or guarantee of the accuracy or completeness of information in this document.
--- NOTE | 2025-02-15 11:05 | ED.GENADUL1 ---
HPI HPI - General Adult General Chief complaint: Extremity Problem, Nontraumatic Stated complaint: LOWER EXTREMITY R KNEE STIFFNESS Time Seen by Provider: 02/15/25 10:48 Source: patient Mode of arrival: walk-in History of Present Illness HPI narrative: Patient is a 24-year-old female presenting to the emergency department for evaluation of a right knee injury. Patient states that she was walking on level ground when she felt pain in the right knee. She denies any trauma or fall to the knee. She states it felt like it locked up . Since then, she has been walking with a limp and states that it has been bothering her. When asked where the pain is, she points to the medial aspect of the knee. She denies any other injuries. States she has a history of right lateral meniscus tear, but never underwent surgical repair. Related Data Allergies Allergy/AdvReac Type Severity Reaction Status Date / Time clarithromycin (From Biaxin) Allergy Severe Unknown Verified 02/15/25 10:55 sulfamethoxazole (From Allergy Severe Unknown Verified 02/15/25 10:55 Bactrim) tobramycin Allergy Severe Unknown Verified 02/15/25 10:55 trimethoprim (From Bactrim) Allergy Severe Unknown Verified 02/15/25 10:55 Review of Systems ROS Status of ROS 10 or more systems reviewed and unremarkable except as noted in history and below PFSH PFSH Social History Little interest or pleasure in doing things: not at all Feeling down, depressed, or hopeless: not at all Exam Narrative Exam Narrative: CONSTITUTIONAL: Well-appearing, answering questions and following commands appropriately SKIN: Was warm and dry. EYES: Sclerae white. EARS, NOSE, THROAT: Moist oral mucosa. RESPIRATORY: Clear to auscultation bilaterally, no wheezes, crackles, or stridor, no use of accessory muscles CARDIOVASCULAR: 2+ DP pulse on the right GASTROINTESTINAL: Abdomen is nondistended. MUSCULOSKELETAL: There is tenderness to palpation throughout the medial joint line of the right knee. The knee is stable with ligamentous testing with varus/valgus/anterior/posterior drawer testing. Negative Luis's sign. Full range of motion throughout the right knee. Ambulates with a mildly antalgic gait. There is no overlying joint effusion. There is no overlying skin changes such as erythema, induration, fluctuance, or drainage. NEUROLOGIC: Patient is awake and alert. Equal strength and sensation to light touch in the bilateral lower extremities. Constitutional Vital Signs, click to edit/add: Last Vital Signs Temp 98.3 F 02/15/25 10:49 Pulse 68 02/15/25 10:49 Resp 18 02/15/25 10:49 BP 113/82 02/15/25 10:49 Pulse Ox 98 02/15/25 10:49 O2 Del Method Room Air 02/15/25 10:49 Course Vital Signs Vital signs: Vital Signs Temperature 98.3 F 02/15/25 10:49 Pulse Rate 68 02/15/25 10:49 Respiratory Rate 18 02/15/25 10:49 Blood Pressure 113/82 02/15/25 10:49 Pulse Oximetry 98 02/15/25 10:49 Oxygen Delivery Method Room Air 02/15/25 10:49 Temperature 98.3 F 02/15/25 10:49 Pulse Rate 68 02/15/25 10:49 Respiratory Rate 18 02/15/25 10:49 Blood Pressure 113/82 02/15/25 10:49 Pulse Oximetry 98 02/15/25 10:49 Oxygen Delivery Method Room Air 02/15/25 10:49 Medical Decision Making [facility] Narrative Medical decision making narrative: Patient is a 24-year-old female presenting to the emergency department for evaluation of right knee pain while ambulating on level ground. Her vital signs are within normal limits. She is afebrile and hemodynamically stable. Examination as noted above, however is notable for tenderness throughout the medial joint line of the right knee. Differential diagnose includes knee sprain, ligamentous tear, meniscus tear. She has full range of motion without overlying skin changes or evidence of infection to suggest septic arthritis. The extremity is neurovascularly intact. There there is no bony tenderness or history of blunt trauma to suggest underlying fracture. I do not believe x-rays are indicated at this time. I do believe the patient stable for discharge. Her knee was wrapped in an Howard bandage prior to discharge. She was instructed to obtain a knee brace for further joint support. She was instructed to follow-up with her orthopedic surgeon should her symptoms persist. She has an established relationship with an orthopedic surgeon as she has a prior lateral meniscus tear. Return precautions were given including any new or concerning symptoms. Patient understands and agrees to the plan. FINAL IMPRESSION: #Acute right knee sprain DISPOSITION: Discharged home CONDITION: Good Discharge Plan Discharge Chief Complaint: Extremity Problem, Nontraumatic Clinical Impression: Right knee sprain Patient Disposition: Home, Self-Care Time of Disposition Decision: 11:06 Condition: Good Mode of Transportation: Private Vehicle Print Language: Monegasque Instructions: Knee Sprain (ED) Referrals: Sarbjit Freeman MD [Primary Care Provider, Family Practice] - 1 week
== END 2025-02-15 11:15 | disposition home or self-care (01) ==
PROVIDERS: Emergency Provider Student in an Organized Health Care Education/Training Program; Family Provider Obstetrics & Gynecology; PCP Family Medicine
DX: S83.91XA Sprain of unspecified site of right knee, initial encounter (principal); Y93.01 Activity, walking, marching and hiking
CPT/HCPCS: 99281